=== PATIENT | female | born 1930 | race American Indian/Alaskan Native ===

== ENCOUNTER 2017-04-11 13:58 | Inpatient (IN) | payer MEDICARE, BC, OTHER ==
[~2017-04-11] VITALS: Ht 167.6 cm; Wt 70.0 kg
[2017-04-11 14:16] VITALS: BP 152/67; PULSE 65; RESP 18; TEMP 98.4; O2SAT 98
--- NOTE | 2017-04-11 14:24 | PD ---
HPI Chief Complaint: Psychiatric Symptoms Time Seen by Provider: 14:20 Travel History International Travel<30 days: No Contact w/Intl Traveler<30days: No Traveled to known affect area: No History of Present Illness HPI 86-year-old female with history of dementia, CHF, COPD, hyperthyroidism, presents to the emergency department under a Enriquez act for psychiatric evaluation. Per the report, patient has had suicidal ideations, she has been aggressive towards staff, she keeps getting out of her wheelchair, so they sent her to the emergency department under Enriquez act. Patient is a very pleasantly confused. She has no recollection of what I am talking about. She is unable to stay focused on any amount of conversation of trying to have with her. She is a poor historian. She says no when asked if she is in pain. She believes Kevin is the president and that it is 1916. PFSH Past Medical History Dementia: Yes GERD: Yes Thyroid Disease: Yes ?: Not Social History Alcohol Use: No Tobacco Use: No Substance Use: No Allergies-Medications (Allergen,Severity, Reaction): Coded Allergies: Penicillins (Verified Allergy, Unknown, 04/11/17) baclofen (Verified Allergy, Unknown, 04/11/17) quetiapine (Verified Allergy, Unknown, 04/11/17) Reported Meds & Prescriptions Reported Meds & Active Scripts Active Reported Tylenol (Acetaminophen) 325 Mg Tab 650 Mg PO Q4H PRN Ativan (Lorazepam) 0.5 Mg Tab 0.5 Mg PO Q8H PRN Thera-D 2000 (Cholecalciferol) 2,000 Unit Tab 2,000 Units PO DAILY Colace (Docusate Sodium) 100 Mg Capsule Q12HR Cranberry Urinary Comfort (Vitamins C & E) 1 Cap 1 Cap PO BID Fentanyl Patch 72 HR (Fentanyl) 12 Mcg/Hr Patch 1 Patch T-DERMAL Q72H Remove old patch when new one placed. Ferrous Sulfate 325 Mg (65 Mg Iron) Tablet 325 Mg PO DAILY Lasix (Furosemide) 20 Mg Tab 20 Mg PO BID Levothyroxine (Levothyroxine Sodium) 50 Mcg Tab 50 Mcg PO DAILY Liothyronine (Liothyronine Sodium) 25 Mcg Tab 25 Mcg PO DAILY Allergy Relief (Loratadine) 10 Mg Tab 10 Mg PO DAILY Systane Opth Drops (Polyethylene Glycol-Propylene Glycol Opth Drp) 0.4-0.3% Soln 1-2 Drop EACH EYE PRN PRN Ranitidine (Ranitidine HCl) 150 Mg Tab 150 Mg PO BID Potassium Chloride ER (Potassium Chloride) 20 Meq Tab 20 Meq PO DAILY Plavix (Clopidogrel Bisulfate) 75 Mg Tab 75 Mg PO DAILY Nystatin Topical (Nystatin) 100,000 unit/gm Cream 1 Applic TOPICAL TID Mclean (Hydrocodone-Acetaminophen) 5-325 mg Tab 1 Tab PO TID PRN Neurontin (Gabapentin) 100 Mg Cap 200 Mg PO BID Melatonin 5 Mg Tab 3 Mg PO HS Review of Systems Except as stated in HPI: all other systems reviewed are Neg Physical Exam Narrative GENERAL: Well-nourished, pleasant elderly female patient, was only confused, in no acute distress. SKIN: Focused skin assessment warm/dry. HEAD: Atraumatic. Normocephalic. EYES: Pupils equal and round. No scleral icterus. No injection or drainage. ENT: No nasal bleeding or discharge. Mucous membranes pink and moist. NECK: Trachea midline. No JVD. CARDIOVASCULAR: Regular rate and rhythm. Over 6 systolic murmur appreciated. RESPIRATORY: No accessory muscle use. Clear to auscultation. Breath sounds equal bilaterally. GASTROINTESTINAL: Abdomen soft, non-tender, nondistended. Hepatic and splenic margins not palpable. MUSCULOSKELETAL: No obvious deformities. No clubbing. No cyanosis. No edema. NEUROLOGICAL: Awake and alert. No obvious cranial nerve deficits. Motor grossly within normal limits. Normal speech. Data Data Last Documented VS Vital Signs Date Time Temp Pulse Resp B/P (MAP) Pulse Ox O2 Delivery O2 Flow Rate FiO2 04/11/17 19:20 63 16 142/61 (88) 96 Room Air 04/11/17 14:16 98.4 Orders Orders Urinalysis - C+S If Indicated (04/11/17 14:24) Haloperidol Inj (Haldol Inj) (04/11/17 15:00) Lorazepam (Ativan) (04/11/17 17:45) Diet Heart Healthy (04/11/17 Dinner) Labs Laboratory Tests Test 04/11/17 15:10 Urine Color YELLOW Urine Turbidity CLEAR Urine pH 5.0 Urine Specific [place] 1.011 Urine Protein NEG mg/dL Urine Glucose (UA) NEG mg/dL Urine Ketones NEG mg/dL Urine Occult Blood NEG Urine Nitrite NEG Urine Bilirubin NEG Urine Urobilinogen LESS THAN 2.0 MG/DL Urine Leukocyte Esterase NEG Urine RBC LESS THAN 1 /hpf Urine WBC LESS THAN 1 /hpf Urine Squamous Epithelial Cells <1 /hpf Urine Hyaline Casts 10 /lpf Microscopic Urinalysis Comment CULT NOT INDICATED MDM Medical Decision Making Medical Screen Exam Complete: Yes Emergency Medical Condition: Yes Medical Record Reviewed: Yes Differential Diagnosis Dementia versus mood disorder versus personality disorder Narrative Course 86-year-old female presents to emergency department under Enriquez act for psychiatric evaluation. The patient is very pleasantly confused. She is demonstrating no aggressive behavior here. She does not seem to know what I am asking when I confronted her about suicidal or homicidal ideations. Lab work was done today in the outpatient lab. Urinalysis will be added. Laboratory Tests Test 04/11/17 15:10 Urine Color YELLOW Urine Turbidity CLEAR Urine pH 5.0 Urine Specific [place] 1.011 Urine Protein NEG mg/dL Urine Glucose (UA) NEG mg/dL Urine Ketones NEG mg/dL Urine Occult Blood NEG Urine Nitrite NEG Urine Bilirubin NEG Urine Urobilinogen LESS THAN 2.0 MG/DL Urine Leukocyte Esterase NEG Urine RBC LESS THAN 1 /hpf Urine WBC LESS THAN 1 /hpf Urine Squamous Epithelial Cells <1 /hpf Urine Hyaline Casts 10 /lpf Microscopic Urinalysis Comment CULT NOT INDICATED Patient is medically cleared to undergo psychiatric screening for further evaluation and disposition. Patient is becoming restless, she will be given milligrams Haldol IM. If needed we will give her 1 mg Ativan by mouth. Mental health screening discussed with the patient. Psychiatric screen ordered. Diagnosis Primary Impression: Dementia Qualified Codes: F03.90 - Unspecified dementia without behavioral disturbance Condition: Stable IrmaAyanna MEDINA Apr 11, 2017 14:24
[2017-04-11] MEDS ORDERED: HALOPERIDOL LACTATE 5 MG/ML AMP IM ONE (15:00)
[2017-04-11 15:32] LABS: BLOOD, URINE NEG (NEG); COMMENT (UR) CULT NOT INDICATED; CULTURE IF INDICATED CULT NOT INDICATED; GLUCOSE,URINE NEG (NEG); HYALINE CAST, URINE 10 /lpf (RARE); KETONE, URINE NEG (NEG); NITRITE,URINE NEG (NEG); SQUAMOUS EPITHELIAL CELL URINE <1 /hpf (0-5); URINE COLOR YELLOW (YELLW/STRAW)
[2017-04-11] MEDS ORDERED: LORazepam 1 MG TAB PO ONE (17:45)
[2017-04-11] MEDS ORDERED: MELA5TAB15 PO (18:28)
[2017-04-11] MEDS ORDERED: NORC5TAB PO (18:28)
[2017-04-11] MEDS ORDERED: NEUR100C PO (18:28)
[2017-04-11] MEDS ORDERED: NYST15T TOPICAL (18:28)
[2017-04-11] MEDS ORDERED: TYLE325T PO (18:38)
[2017-04-11] MEDS ORDERED: PLAV75TA29 PO (18:38)
[2017-04-11] MEDS ORDERED: POTA-163 PO (18:38)
[2017-04-11] MEDS ORDERED: FURO1TAB62 PO (18:38)
[2017-04-11] MEDS ORDERED: LIOT25TA3 PO (18:38)
[2017-04-11] MEDS ORDERED: CRANCAP2 PO (18:38)
[2017-04-11] MEDS ORDERED: FENT12DI T-DERMAL (18:38)
[2017-04-11] MEDS ORDERED: COLA100C (18:38)
[2017-04-11] MEDS ORDERED: LEVO50TA4 PO (18:38)
[2017-04-11] MEDS ORDERED: FERR325T8 PO (18:38)
[2017-04-11] MEDS ORDERED: LORA-392 PO (18:38)
[2017-04-11] MEDS ORDERED: RANI150T PO (18:38)
[2017-04-11] MEDS ORDERED: SYSTSOL EACH EYE (18:38)
[2017-04-11] MEDS ORDERED: ALLE10TA PO (18:38)
[2017-04-11] MEDS ORDERED: THER2000 PO (18:38)
[2017-04-11 19:20] VITALS: BP_SYST 132; BP_SYST 140; BP_SYST 142; BP_DIAS 60; BP_DIAS 61; PULSE 63; RESP 16; O2SAT 96
[2017-04-11 22:58] VITALS: BP_SYST 132; BP_SYST 141; BP_DIAS 58; BP_DIAS 60; PULSE 71; PULSE 85; RESP 16; O2SAT 98
[2017-04-11 23:00] VITALS: BP 166/75; PULSE 63; RESP 18; TEMP 97.4; O2SAT 97
[2017-04-12 05:55] VITALS: BP 159/71; PULSE 67; RESP 17; TEMP 98.2
[2017-04-12] MEDS ORDERED: ACETAMINOPHEN 325 MG TAB PO PRN (09:30)
[2017-04-12] MEDS ORDERED: NON-FORMULARY DRUG (Fentanyl Patch 72 HR 1 PATCH) T-DERMAL SCH (09:45)
[2017-04-12] MEDS ORDERED: ACETAMINOPHEN/HYDROcodone 325 MG/5 MG TAB PO PRN (10:00)
--- NOTE | 2017-04-12 10:40 | HHI.HP ---
Provisional Diagnosis Admission Date Apr 11, 2017 at 22:19 [place] I. 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 Express and informed consent means consent voluntarily given in writing, by a competent person, after sufficient explanation and disclosure of the subject matter involved to enable the person to make a knowing and willful decision without any element of force, fraud, deceit, duress, or other form of constraint or coercion. This person is 18 years of age or older, is not now known to be incompetent to consent to treatment with a guardian advocate, and does not have a health care surrogate or proxy currently making medical treatment decisions. I have found this person to be one of the following: [] Competent to provide express and informed consent, as defined above, for voluntary admission to this facility and is competent to provide express and informed consent for treatment. He/she has the consistent capacity to make well reasoned, willful, and knowing decisions concerning his or her medical or mental health treatment. The person fully and consistently understands the purpose of the admission for examination/placement and is fully capable of personally exercising all rights assured under [place] Incompetent to provide express and informed consent to voluntary admission , and this is incompetent to provide express and informed consent to treatment. The person must be transferred to involuntary status and a petition for a guardian advocate filed with the Circuit Court. [] Refusing to provide express and informed consent to voluntary admission but is competent to provide express and informed consent for treatment. The person must be discharged or transferred to involuntary status. Form shall be completed within 24 hours of a person's arrival at the receiving facility and filed in the clinical record of each person: 1. Admitted on a voluntary basis 2. Permitted to provide express and informed consent to his/her own treatment 3. Allowed to transfer from involuntary to voluntary status 4. Prior to permitting a person to consent to his or her own treatment after having been previously found incompetent to consent to treatment. History of Present Illness Capacity: Lacks Capacity HPI Patient is an 86-year-old white female comes here under Enriquez act signed by Carolann Perez LCSW dated 04/11/17 11:15 AM that document reviewed. Essentially stated he suicidal intentions delusional thoughts content strikingly staff/ family members refuses to remain in wheelchair resulting in potential falls. Patient seen screened in ED it appears the only lab test done with urinalysis that showed culture not indicated. Patient with history of dementia was living at [facility] for past 3 years is had stresses with thought that the roommate. And changes in her medication recently with the discontinuation of Cymbalta and manipulation of her fentanyl patch. This is led to increased behavioral issues including being more aggressive and hostile towards her daughter who is her caregiver and decision-maker. Thus patient being transferred here. At the present time patient sitting quietly in day room she is calm quite pleasant, eating pleasantly confused all 4 spheres. There is no other significant mental health history. Lids of the patient's daughter whose name is Pat at verifies the above. Daughter states patient is a DNR she does not wish aggressive treatment to be done. She is on palliative care at the alf. I do agree with her. She'll be made a DNR here. We will the hospitalist consult will us. We'll continue her on her Cymbalta at 20 mg daily however the fentanyl patch ordered was 12.5 mg. Hospital only has 25 mg. Chest with a daughter. Many event hopefully this will be a short stay with concerned the patient to [facility] Review of Systems ROS Limitations: Clinical Condition, Altered Mental Status Past Psych History Psychological trauma history Denies Violence risk - others (6 mos) Patient increasingly aggressive toward staff and family at alf Violence risk - self (6 mos) Patient make vague suicidal statement Substance Abuse History Drugs/Alcohol past 12 months Denies Past Family Social History Coded Allergies: Penicillins (Verified Allergy, Unknown, 04/11/17) baclofen (Verified Allergy, Unknown, 04/11/17) quetiapine (Verified Allergy, Unknown, 04/11/17) Reported Medications Acetaminophen (Tylenol) 325 Mg Tab, 650 MG PO Q4H Y for INCREASED TEMPERATURE, TAB 0 Refills 04/11/17 Lorazepam (Ativan) 0.5 Mg Tab, 0.5 MG PO Q8H Y for ANXIETY AND/OR AGITATION, TAB 0 Refills 04/11/17 Cholecalciferol (Thera-D 1999) 2,000 Unit Tab, 2000 UNITS PO DAILY for Nutritional Supplement, BOTTLE 0 Refills 04/11/17 Docusate Sodium (Colace) 100 Mg Capsule, Q12HR 04/11/17 Vitamins C & E (Cranberry Urinary Comfort) 1 Cap, 1 CAP PO BID for Urinary Symptom Managemen, CAP 0 Refills 04/11/17 Fentanyl Patch 72 HR (Fentanyl Patch 72 HR) 12 Mcg/Hr Patch, 1 PATCH T-DERMAL Q72H for Pain Management, PATCH 0 Refills Remove old patch when new one placed. 04/11/17 Ferrous Sulfate (Ferrous Sulfate) 325 Mg (65 Mg Iron) Tablet, 325 MG PO DAILY for Nutritional Supplement, TAB 0 Refills 04/11/17 Furosemide (Lasix) 20 Mg Tab, 20 MG PO BID, TAB 0 Refills 04/11/17 Levothyroxine (Levothyroxine) 50 Mcg Tab, 50 MCG PO DAILY for Thyroid, TAB 0 Refills 04/11/17 Liothyronine (Liothyronine) 25 Mcg Tab, 25 MCG PO DAILY for Thyroid Supplement, TAB 0 Refills 04/11/17 Loratadine (Allergy Relief) 10 Mg Tab, 10 MG PO DAILY, TAB 04/11/17 Polyethylene Glycol-Propylene Glycol Opth Drp (Systane Opth Drops) 0.4-0.3% Soln , 1-2 DROP EACH EYE PRN Y for DRY EYE, #1 BOTTLE 0 Refills 04/11/17 Ranitidine (Ranitidine) 150 Mg Tab, 150 MG PO BID for Heartburn Management, TAB 0 Refills 04/11/17 Potassium Chloride ER (Potassium Chloride ER) 20 Meq Tab, 20 MEQ PO DAILY for Electrolyte Replacement, TAB 0 Refills 04/11/17 Clopidogrel (Plavix) 75 Mg Tab, 75 MG PO DAILY for Blood Clot Prevention, TAB 0 Refills 04/11/17 Nystatin Topical (Nystatin Topical) 100,000 unit/gm Cream, 1 APPLIC TOPICAL TID , 0 Refills 04/11/17 Hydrocodone-Acetaminophen (Barron) 5-325 mg Tab, 1 TAB PO TID Y for PAIN, TAB 0 Refills 04/11/17 Gabapentin (Neurontin) 100 Mg Cap, 200 MG PO BID, CAP 0 Refills 04/11/17 Melatonin (Melatonin) 5 Mg Tab, 3 MG PO HS for Provide Good Sleep, TAB 0 Refills 04/11/17 Current Medications Medications (Trade) Dose Ordered Sig/Keli Route Start Time Stop Time Status Last Admin (Tylenol) 650 mg Q4H PRN PO 04/12/17 09:30 UNV (Vitamin D3) 2,000 units DAILY PO 04/13/17 09:00 (Plavix) 75 mg DAILY PO 04/12/17 11:00 (Ferrous Sulfate) 325 mg DAILY PO 04/13/17 09:00 (Lasix) 20 mg BID PO 04/12/17 21:00 (Neurontin) 200 mg BID PO 04/12/17 21:00 (Barron 5-325 Mg) 1 tab TID PRN PO 04/12/17 09:30 UNV (Synthroid) 50 mcg DAILY@0600 PO 04/13/17 06:00 (Cytomel) 25 mcg DAILY PO 04/13/17 09:00 (Melatonin) 3 mg HS PO 04/12/17 21:00 UNV (KCl) 20 meq DAILY PO 04/13/17 09:00 (Pepcid) 20 mg BID PO 04/12/17 12:00 Non-Formulary Medication 1 patch Q72H T-DERMAL 04/12/17 09:45 UNV (Cymbalta Dr) 20 mg DAILY PO 04/12/17 11:00 Family Psych History Denies Social History Patient has lived in alf past 3 years Patient's Strengths (min. 2) Patient verbal cooperative has supportive family Physical Exam Vital Signs Vital Signs Date Time Temp Pulse Resp B/P (MAP) Pulse Ox O2 Delivery O2 Flow Rate FiO2 04/12/17 05:55 98.2 67 17 159/71 (100) 04/11/17 23:00 97 04/11/17 22:58 Room Air I/O 04/12/17 04/12/17 04/13/17 08:00 16:00 00:00 Intake Total 480 ml Balance 480 ml Lab Results Test 04/11/17 15:10 Urine Color YELLOW Urine Turbidity CLEAR Urine pH 5.0 Urine Specific [place] 1.011 Urine Protein NEG mg/dL Urine Glucose (UA) NEG mg/dL Urine Ketones NEG mg/dL Urine Occult Blood NEG Urine Nitrite NEG Urine Bilirubin NEG Urine Urobilinogen LESS THAN 2.0 MG/DL Urine Leukocyte Esterase NEG Urine RBC LESS THAN 1 /hpf Urine WBC LESS THAN 1 /hpf Urine Squamous Epithelial Cells <1 /hpf Urine Hyaline Casts 10 /lpf Microscopic Urinalysis Comment CULT NOT INDICATED Mental Status Examination Appearance: Appropriate Consciousness: Alert Orientation: Person Motor Activity: Other (patient wheelchair-bound) Speech: Other (markedly disorganized) Language: Other (poor) Fund of Knowledge: Poor (poor) Attention and Concentration: Other (poor) Memory: Impaired Mood: Other (euthymic to somewhat irritable) Affect: Other (slight increase range and intensity) Thought Process & Associations: Disorganized Thought Content: Other (disorganized) Hallucination Type: None Delusion Type: None Suicidal Ideation: No Suicidal Plan: No Suicidal Intention: No Homicidal Ideation: No Homicidal Plan: No Homicidal Intention: No Insight: Poor Judgment: Poor Assessment & Plan Problem List: (1) ALZHEIMER'S DISEASE WITH LATE ONSET ICD Codes: G30.1 - ALZHEIMER'S DISEASE WITH LATE ONSET (2) DEMENTIA IN OTH DISEASES CLASSD ELSWHR W BEHAVIORAL DISTURB ICD Codes: F02.81 - DEMENTIA IN OTH DISEASES CLASSD ELSWHR W BEHAVIORAL DISTURB Assessment & Plan Patient meets criteria for involuntary hospitalization under the Enriquez act I'll do first opinion requests second opinion, ask for healthcare surrogate and guardian advocate. Patient's daughter has decision-making authority. The hospitalist consult Pandey and dietary consult willingness monitor patient copiously short stay with return of her culture and [place] Estimated LOS: days Discharge Planning Return to [facility] once patient stabilized Request HC Surrog/Guard Advoc?: Yes Carlos Hu MD Apr 12, 2017 10:40
[2017-04-12] MEDS: CLOPIDOGREL 75 MG TAB PO SCH ×2 (11:00→12:35)
[2017-04-12] MEDS: DULoxetine HCl DR 20 MG CAP PO SCH ×2 (11:00→12:38)
[2017-04-12] MEDS: FAMOTIDINE 20 MG TAB PO SCH ×2 (12:35→20:33)
[2017-04-12] MEDS ORDERED: REMOVE OLD DURAGESIC (FENTANYL) PATCH T-DERMAL SCH (13:00)
[2017-04-12] MEDS ORDERED: fentaNYL 25 MCG/HR PATCH T-DERMAL SCH (13:00)
[2017-04-12] MEDS ORDERED: HALOPERIDOL LACTATE 5 MG/ML AMP IM STA (13:18)
[2017-04-12] MEDS ORDERED: LORazepam 0.5 MG TAB PO PRN (15:45)
[2017-04-12] MEDS ORDERED: LORazepam 2 MG/ML VIAL IM PRN (15:45)
--- NOTE | 2017-04-12 17:54 | PD.CONS ---
HPI Service [facility] Hospitalists Consult Requested By Niko Malagon M.D. Reason for Consult Medication management. Primary Care Physician Anatoliy Roper DO Diagnoses: History of Present Illness Written by Pelon Slaughter, acting as scribe for Dr. Sonia Baxter on 04/12/17 at 17: 40. Ms. Mina is 86 years old, with history of dementia, CHF, COPD, hypothyroidism, GERD, iron deficiency, vitamin D deficiency, and chronic pain. Ms. Mina bed resident of a correction for the past 3 years. Recently she has become combative and was brought to [facility] ED for psychiatric evaluation under the Enriquez act. She was subsequently admitted to psychiatry. Hospitalist service consulted for medical management. At interview, was pleasantly confused and could not provide significant history about herself or her medical past. As such a review of systems could not be obtained. Review of Systems ROS Limitations: Clinical Condition, Poor Historian Unable to obtain accurate review of system. Past Family Social History Allergies: Coded Allergies: Penicillins (Verified Allergy, Unknown, 04/11/17) baclofen (Verified Allergy, Unknown, 04/11/17) quetiapine (Verified Allergy, Unknown, 04/11/17) Past Medical History Dementia CHF COPD Hypothyroidism GERD Iron deficiency Vitamin D deficiency Chronic pain Past Surgical History Unknown due to patient being poor historian. Reported Medications Reported Meds & Active Scripts Active Reported Tylenol (Acetaminophen) 325 Mg Tab 650 Mg PO Q4H PRN Ativan (Lorazepam) 0.5 Mg Tab 0.5 Mg PO Q8H PRN Thera-D 2000 (Cholecalciferol) 2,000 Unit Tab 2,000 Units PO DAILY Colace (Docusate Sodium) 100 Mg Capsule Q12HR Cranberry Urinary Comfort (Vitamins C & E) 1 Cap 1 Cap PO BID Fentanyl Patch 72 HR (Fentanyl) 12 Mcg/Hr Patch 1 Patch T-DERMAL Q72H Remove old patch when new one placed. Ferrous Sulfate 325 Mg (65 Mg Iron) Tablet 325 Mg PO DAILY Lasix (Furosemide) 20 Mg Tab 20 Mg PO BID Levothyroxine (Levothyroxine Sodium) 50 Mcg Tab 50 Mcg PO DAILY Liothyronine (Liothyronine Sodium) 25 Mcg Tab 25 Mcg PO DAILY Allergy Relief (Loratadine) 10 Mg Tab 10 Mg PO DAILY Systane Opth Drops (Polyethylene Glycol-Propylene Glycol Opth Drp) 0.4-0.3% Soln 1-2 Drop EACH EYE PRN PRN Ranitidine (Ranitidine HCl) 150 Mg Tab 150 Mg PO BID Potassium Chloride ER (Potassium Chloride) 20 Meq Tab 20 Meq PO DAILY Plavix (Clopidogrel Bisulfate) 75 Mg Tab 75 Mg PO DAILY Nystatin Topical (Nystatin) 100,000 unit/gm Cream 1 Applic TOPICAL TID Stovall (Hydrocodone-Acetaminophen) 5-325 mg Tab 1 Tab PO TID PRN Neurontin (Gabapentin) 100 Mg Cap 200 Mg PO BID Melatonin 5 Mg Tab 3 Mg PO HS Active Ordered Medications Current Medications Medications (Trade) Dose Ordered Sig/Keli Route Start Time Stop Time Status Last Admin (Tylenol) 650 mg Q4H PRN PO 04/12/17 09:30 (Vitamin D3) 2,000 units DAILY PO 04/13/17 09:00 (Plavix) 75 mg DAILY PO 04/12/17 11:00 (Ferrous Sulfate) 325 mg DAILY PO 04/13/17 09:00 (Lasix) 20 mg BID PO 04/12/17 21:00 (Neurontin) 200 mg BID PO 04/12/17 21:00 (Stovall 5-325 Mg) 1 tab TID PRN PO 04/12/17 10:00 (Synthroid) 50 mcg DAILY@0600 PO 04/13/17 06:00 (Cytomel) 25 mcg DAILY PO 04/13/17 09:00 (Melatonin) 5 mg HS PO 04/12/17 21:00 (KCl) 20 meq DAILY PO 04/13/17 09:00 (Pepcid) 20 mg BID PO 04/12/17 12:00 04/12/17 12:35 (Cymbalta Dr) 20 mg DAILY PO 04/12/17 11:00 (Duragesic 25 Mcg Patch.72 Hr) 1 patch Q3D T-DERMAL 04/12/17 13:00 04/12/17 16:45 Miscellaneous Information 1 Q3D T-DERMAL 04/12/17 13:00 04/12/17 16:45 (Ativan) 0.5 mg Q12H PRN PO 04/12/17 15:45 (Ativan Inj) 0.5 mg Q12H PRN IM 04/12/17 15:45 Family History Unable to determine because of patient's mental status. Social History Patient is and has lived in a correction for the last 3 years. Medical record indicates patient has negative history for alcohol abuse, tobacco usage, or illicit/recreational drug use. Physical Exam Vital Signs Vital Signs Date Time Temp Pulse Resp B/P (MAP) Pulse Ox O2 Delivery O2 Flow Rate FiO2 04/12/17 05:55 98.2 67 17 159/71 (100) 04/11/17 23:00 97.4 63 18 166/75 (105) 97 04/11/17 22:58 71 16 132/58 (82) 98 Room Air 04/11/17 22:58 04/11/17 19:20 63 16 140/60 (86) 96 Room Air Physical Exam GENERAL: This is a well-nourished, well-developed patient, in no apparent distress. SKIN: No rashes, ecchymoses or lesions. Cool and dry. HEAD: Atraumatic. Normocephalic. EYES: Pupils equal round and reactive. Extraocular motions intact. No scleral icterus. No injection or drainage. ENT: Nose without bleeding or purulent drainage. Airway patent. NECK: Trachea midline. No lymphadenopathy. Supple and nontender. CARDIOVASCULAR: Regular rate and rhythm without murmurs, gallops, or rubs. RESPIRATORY: Clear to auscultation. Breath sounds equal bilaterally. No wheezes , rales, or rhonchi. GASTROINTESTINAL: Abdomen soft, non-tender, nondistended. No hepato- splenomegaly or guarding. MUSCULOSKELETAL: Extremities without clubbing, cyanosis, or edema. Bilaterally thigh regions were large yet lower extremities were very skinny. NEUROLOGICAL: Awake and alert. Cranial nerves II through XII intact. Motor and sensory grossly within normal limits. Five out of 5 muscle strength in all muscle groups. Normal speech. Assessment and Plan Assessment and Plan Ms. Mina is 86 years old, with history of dementia, CHF, COPD, hypothyroidism, GERD, iron deficiency, vitamin D deficiency, and chronic pain. Dementia with disturbance of behavior. -Treatment per psychiatry. CHF/Probable CAD -Furosemide 20 mg twice a day by mouth -Potassium chloride 20 mEq by mouth daily. -Plavix 75 mg by mouth daily. COPD -Stable Hypothyroidism -Liothyronine 25 micrograms by mouth daily -Levothyroxine 50 micrograms daily at 6 AM by mouth GERD Vitamin D deficiency Iron deficiency -Pepcid 20 mg twice a day by mouth -Vitamin D3 2000 units by mouth daily -Ferrous sulfate 325 mg by mouth daily Chronic pain -Duragesic 25 microgram patch every 3 days transdermal -Stovall 5-325 mg 1 tablet 3 times a day as needed by mouth for pain This note was transcribed by scribe [Pelon Slaughter]. I, Dr. Vlad Baxter personally performed the history, physical exam, and medical decision making; and confirmed the accuracy of the information in the transcribed note. Authenticated by Dr. Vlad Baxter on 04/12/17 at 1745 I reviewed the available medical record, including her labs and vital signs in details. She is medically stable. Will sign off. Please call or reconsult with questions. Code Status DO NOT RESUSCITATE Discussed Condition With Patient and psychiatric staff Pelon Slaughter Jr. Apr 12, 2017 17:54 Vlad Baxter MD Apr 12, 2017 19:08
[2017-04-12] MEDS: MELATONIN 5 MG TAB PO SCH (20:32)
[2017-04-12] MEDS: GABAPENTIN 100 MG CAP PO SCH (20:33)
[2017-04-12] MEDS: FUROSEMIDE 20 MG TAB PO SCH (20:33)
[2017-04-12] MEDS ORDERED: NON-FORMULARY DRUG (Vitamins C & E (Cranberry Urinary Comfort) 1 CAP) PO SCH (21:00)
[2017-04-13 06:00] VITALS: BP 132/67; PULSE 69; RESP 15; O2SAT 96
[2017-04-13] MEDS: LEVOTHYROXINE SODIUM 50 MCG TAB PO SCH (06:00)
[2017-04-13] MEDS: CHOLECALCIFEROL (VIT D3) 1000 UNIT TAB PO SCH (10:23)
[2017-04-13] MEDS: LIOTHYRONINE SODIUM 25 MCG TAB PO SCH (10:24)
[2017-04-13] MEDS: CLOPIDOGREL 75 MG TAB PO SCH (10:24)
[2017-04-13] MEDS: DULoxetine HCl DR 20 MG CAP PO SCH (10:24)
[2017-04-13] MEDS: GABAPENTIN 100 MG CAP PO SCH ×2 (10:24→20:03)
[2017-04-13] MEDS: FUROSEMIDE 20 MG TAB PO SCH ×2 (10:24→20:02)
[2017-04-13] MEDS: FERROUS SULFATE 325 MG (65 MG ELEMENTAL IRON) TAB PO SCH (10:24)
[2017-04-13] MEDS: FAMOTIDINE 20 MG TAB PO SCH ×2 (10:24→20:03)
[2017-04-13] MEDS: POTASSIUM CHLORIDE 20 MEQ CONTROLLED RELEASE TAB PO SCH (10:25)
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
--- NOTE | 2017-04-13 14:16 | HHI.PR ---
Subjective Remarks Request to see pt for yeast infection under breasts. Pt seen and examined. She reported having discomfort along her left flank. She denied fever, chills, cough, shortness of breath, abdominal/chest pain, NVD. Per RN (Jes) Hospitalist team was requested to see pt as family was concerned yeast infection was not improving. Vitals signs stable, pt afebrile. Objective Vitals Vital Signs Date Time Temp Pulse Resp B/P (MAP) Pulse Ox O2 Delivery O2 Flow Rate FiO2 04/13/17 06:00 69 15 132/67 (88) 96 04/12/17 18:13 14 I/O 04/12/17 04/12/17 04/12/17 04/13/17 04/13/17 04/13/17 06:59 14:59 22:59 06:59 14:59 22:59 Intake Total 1440 ml 480 ml 460 ml Balance 1440 ml 480 ml 460 ml Intake Oral 1440 ml 480 ml 460 ml # Voids 2 1 1 Objective Remarks GENERAL: Pt encountered in day room and wheeled into her room by RN. Pt was requesting to return to bed during examination. SKIN: Warm and dry. White, flaky material lateral to both breasts. Skin was unbroken, not erythematous. No drainage noted. HEAD: Normocephalic. EYES: No scleral icterus. No injection or drainage. NECK: Supple, trachea midline. No lymphadenopathy. CARDIOVASCULAR: Regular rate and rhythm without murmurs, gallops, or rubs. RESPIRATORY: Breath sounds equal bilaterally. No accessory muscle use. GASTROINTESTINAL: Abdomen soft, non-tender, nondistended. MUSCULOSKELETAL: No cyanosis, or edema. PSYCHIATRIC: Pleasantly confused, became agitated when she could not return to bed. Medications and IVs Current Medications Medications (Trade) Dose Ordered Sig/Keli Route Start Time Stop Time Status Last Admin (Tylenol) 650 mg Q4H PRN PO 04/12/17 09:30 (Vitamin D3) 2,000 units DAILY PO 04/13/17 09:00 04/13/17 10:23 (Plavix) 75 mg DAILY PO 04/12/17 11:00 04/13/17 10:24 (Ferrous Sulfate) 325 mg DAILY PO 04/13/17 09:00 04/13/17 10:24 (Lasix) 20 mg BID PO 04/12/17 21:00 04/13/17 10:24 (Neurontin) 200 mg BID PO 04/12/17 21:00 04/13/17 10:24 ([place] 5-325 Mg) 1 tab TID PRN PO 04/12/17 10:00 (Synthroid) 50 mcg DAILY@0600 PO 04/13/17 06:00 04/13/17 06:00 (Cytomel) 25 mcg DAILY PO 04/13/17 09:00 04/13/17 10:24 (Melatonin) 5 mg HS PO 04/12/17 21:00 04/12/17 20:32 (KCl) 20 meq DAILY PO 04/13/17 09:00 04/13/17 10:25 (Pepcid) 20 mg BID PO 04/12/17 12:00 04/13/17 10:24 (Cymbalta Dr) 20 mg DAILY PO 04/12/17 11:00 04/13/17 10:24 (Duragesic 25 Mcg Patch.72 Hr) 1 patch Q3D T-DERMAL 04/12/17 13:00 04/12/17 16:45 Miscellaneous Information 1 Q3D T-DERMAL 04/12/17 13:00 04/12/17 16:45 (Ativan) 0.5 mg Q12H PRN PO 04/12/17 15:45 (Ativan Inj) 0.5 mg Q12H PRN IM 04/12/17 15:45 Urinary Catheter: No A/P Assessment and Plan Ms. Mina is 86 years old, with history of dementia, CHF, COPD, hypothyroidism, GERD, iron deficiency, vitamin D deficiency, and chronic pain. Candidiasis -Clotrimazole cream applied to affected area twice daily -Keep skin jesus as much as possible. -Add nystatin powder twice daily after the Clotrimazole cream. -Pt afebrile, Dementia with disturbance of behavior. -Treatment per psychiatry. CHF/Probable CAD -Furosemide 20 mg twice a day by mouth -Potassium chloride 20 mEq by mouth daily. -Plavix 75 mg by mouth daily. COPD -Stable Hypothyroidism -Liothyronine 25 micrograms by mouth daily -Levothyroxine 50 micrograms daily at 6 AM by mouth GERD Vitamin D deficiency Iron deficiency -Pepcid 20 mg twice a day by mouth -Vitamin D3 2000 units by mouth daily -Ferrous sulfate 325 mg by mouth daily Chronic pain -Duragesic 25 microgram patch every 3 days transdermal -[place] 5-325 mg 1 tablet 3 times a day as needed by mouth for pain Case discussed with pt, RN, and Dr. Cuello. Will sign off as pt is medically stable. Please re-consult for any further questions or issues. Discharge Planning Ongoing. Pelon Slaughter Jr. Apr 13, 2017 14:16
[2017-04-13 18:36] VITALS: BP 153/75; PULSE 98; RESP 18; TEMP 98.1; O2SAT 94
[2017-04-13] MEDS: CLOTRIMAZOLE 1% CREAM 15 GM TOPICAL SCH ×2 (18:41→20:03)
[2017-04-13] MEDS: NYSTATIN 100,000 U/GM PWD 15 GM BTL TOPICAL SCH ×2 (18:41→20:05)
[2017-04-13] MEDS: MELATONIN 5 MG TAB PO SCH (20:03)
[2017-04-14 06:20] VITALS: BP 141/69; PULSE 88; RESP 18; TEMP 96.8; O2SAT 98
[2017-04-14] MEDS: LEVOTHYROXINE SODIUM 50 MCG TAB PO SCH (06:31)
[2017-04-14] MEDS: CLOPIDOGREL 75 MG TAB PO SCH (10:22)
[2017-04-14] MEDS: DULoxetine HCl DR 20 MG CAP PO SCH (10:22)
[2017-04-14] MEDS: GABAPENTIN 100 MG CAP PO SCH ×2 (10:22→21:37)
[2017-04-14] MEDS: POTASSIUM CHLORIDE 20 MEQ CONTROLLED RELEASE TAB PO SCH (10:23)
[2017-04-14] MEDS: CHOLECALCIFEROL (VIT D3) 1000 UNIT TAB PO SCH (10:23)
[2017-04-14] MEDS: FERROUS SULFATE 325 MG (65 MG ELEMENTAL IRON) TAB PO SCH (10:23)
[2017-04-14] MEDS: FAMOTIDINE 20 MG TAB PO SCH ×2 (10:23→21:37)
[2017-04-14] MEDS: LIOTHYRONINE SODIUM 25 MCG TAB PO SCH (10:23)
[2017-04-14] MEDS: FUROSEMIDE 20 MG TAB PO SCH ×2 (10:24→21:38)
[2017-04-14] MEDS: CLOTRIMAZOLE 1% CREAM 15 GM TOPICAL SCH ×2 (10:25→21:40)
[2017-04-14] MEDS: NYSTATIN 100,000 U/GM PWD 15 GM BTL TOPICAL SCH ×2 (10:25→21:40)
--- NOTE | 2017-04-14 11:59 | HHI.PYPN ---
Subjective Remarks Pt seen and discussed with staff. Pt has been calm today. No agitation or aggression so far today. She has been compliant with medications and care today. She slept 5 hours last night which was an improvement. She states that she is "enjoying the summer". No SI/HI Mental Status Examination Appearance: Appropriate Consciousness: Alert Orientation: Person Motor Activity: Abnormal gait Speech: Rapid, Other (loud) Language: Other (poor) Fund of Knowledge: Poor Attention and Concentration: Easily Distracted Memory: Impaired (severe) Mood: Irritable Affect: Labile Thought Process & Associations: Disorganized Thought Content: Other (disorganized) Hallucination Type: None Delusion Type: None Suicidal Ideation: No Suicidal Plan: No Suicidal Intention: No Homicidal Ideation: No Homicidal Plan: No Homicidal Intention: No Insight: Poor Judgment: Poor Results Vitals/IOs Vital Signs Date Time Temp Pulse Resp B/P (MAP) Pulse Ox O2 Delivery O2 Flow Rate FiO2 04/14/17 06:20 96.8 88 18 141/69 (93) 98 04/11/17 22:58 Room Air Intake and Output 04/14/17 04/14/17 04/14/17 07:59 15:59 23:59 Intake Total 240 ml Balance 240 ml Assessment & Plan Problem List: (1) ALZHEIMER'S DISEASE WITH LATE ONSET ICD Codes: G30.1 - ALZHEIMER'S DISEASE WITH LATE ONSET (2) DEMENTIA IN OTH DISEASES CLASSD ELSWHR W BEHAVIORAL DISTURB ICD Codes: F02.81 - DEMENTIA IN OTH DISEASES CLASSD ELSWHR W BEHAVIORAL DISTURB Assessment & Plan Continue current tx plan. Estimated LOS: days Justification for Cont. Inpt. impairments in safety Request HC Surrog/Guard Advoc?: Yes Adelia Rodriguez MD Apr 14, 2017 11:59
[2017-04-14 17:56] VITALS: BP 125/60; PULSE 60; RESP 17; TEMP 97.9; O2SAT 97
[2017-04-14 18:00] VITALS: BP 125/60; PULSE 60; RESP 17; TEMP 97.1; O2SAT 97
[2017-04-14] MEDS: MELATONIN 5 MG TAB PO SCH (21:37)
[2017-04-15] MEDS: LEVOTHYROXINE SODIUM 50 MCG TAB PO SCH (05:30)
[2017-04-15 06:15] VITALS: BP 141/71; PULSE 62; RESP 16; TEMP 97.3; O2SAT 97
[2017-04-15] MEDS: FERROUS SULFATE 325 MG (65 MG ELEMENTAL IRON) TAB PO SCH (08:34)
[2017-04-15] MEDS: LIOTHYRONINE SODIUM 25 MCG TAB PO SCH (08:34)
[2017-04-15] MEDS: CLOPIDOGREL 75 MG TAB PO SCH (08:34)
[2017-04-15] MEDS: FAMOTIDINE 20 MG TAB PO SCH (08:34)
[2017-04-15] MEDS: CHOLECALCIFEROL (VIT D3) 1000 UNIT TAB PO SCH (08:34)
[2017-04-15] MEDS: FUROSEMIDE 20 MG TAB PO SCH (08:34)
[2017-04-15] MEDS: POTASSIUM CHLORIDE 20 MEQ CONTROLLED RELEASE TAB PO SCH (08:35)
[2017-04-15] MEDS: GABAPENTIN 100 MG CAP PO SCH (08:35)
[2017-04-15] MEDS: NYSTATIN 100,000 U/GM PWD 15 GM BTL TOPICAL SCH (08:35)
[2017-04-15] MEDS: CLOTRIMAZOLE 1% CREAM 15 GM TOPICAL SCH (08:35)
[2017-04-15] MEDS ORDERED: FURO20TA PO (09:49)
[2017-04-15] MEDS ORDERED: FAMO20TA2 PO (09:49)
[2017-04-15] MEDS ORDERED: GNP5TAB6 PO (09:49)
[2017-04-15] MEDS ORDERED: FERR325T20 PO (09:49)
[2017-04-15] MEDS ORDERED: GABA100C4 PO (09:49)
[2017-04-15] MEDS ORDERED: FENT25T T-DERMAL (09:49)
[2017-04-15] MEDS ORDERED: CYTO25TA PO (09:49)
[2017-04-15] MEDS ORDERED: POTA20TA5 PO (09:49)
[2017-04-15] MEDS ORDERED: NYST10007 TOPICAL (09:49)
[2017-04-15] MEDS ORDERED: CLOT1CRE8 TOPICAL (09:49)
[2017-04-15] MEDS ORDERED: VITA1000 PO (09:49)
[2017-04-15] MEDS ORDERED: PLAV75TA29 PO (09:49)
[2017-04-15] MEDS ORDERED: DULO20 PO (09:49)
[2017-04-15] MEDS ORDERED: LEVO.05 PO (09:49)
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
== END 2017-04-15 12:00 | DRG 57 ==
LOC: NEPD 13:58 → NEDA 22:19 → H250 22:57
PROVIDERS: ADMIT Psychiatry & Neurology Psychiatry; ATTEND Psychiatry & Neurology Psychiatry
DX: G30.1 Alzheimer's disease with late onset (principal); F02.81 Dementia in other diseases classified elsewhere, unspecified severity, with behavioral disturbance; I50.9 Heart failure, unspecified; B37.2 Candidiasis of skin and nail; I25.10 Atherosclerotic heart disease of native coronary artery without angina pectoris; E55.9 Vitamin D deficiency, unspecified; J44.9 Chronic obstructive pulmonary disease, unspecified; Z66 Do not resuscitate; Z51.5 Encounter for palliative care; Z99.3 Dependence on wheelchair; K21.9 Gastro-esophageal reflux disease without esophagitis; E03.9 Hypothyroidism, unspecified; E61.1 Iron deficiency; G89.29 Other chronic pain
CPT/HCPCS: 81001; 96372; J1630

== ENCOUNTER 2017-07-20 05:39 | Inpatient (IN) | payer MEDICARE, BC, OTHER ==
[~2017-07-20] VITALS: Ht 162.6 cm; Wt 57.4 kg
[~2017-07-20 05:39] MED LIST: CLOT1CRE8 TOPICAL; COLA100C5; CRANCAP2 PO; DULO20 PO; FAMO20TA2 PO; FENT12DI T-DERMAL; FENT25T T-DERMAL; FERR325T20 PO; FURO20TA PO; GABA100C4 PO; LEVO.05 PO; LIOT25 PO; LORA-392 PO; LORA-650 PO; MELA1TAB31 PO; NEUR100C PO; NORC5TAB PO; NYST10007 TOPICAL; NYST15T TOPICAL; PLAV75TA29 PO; POTA20TA5 PO; SYSTSOL EACH EYE; TYLE325T PO; VITA1000 PO
[2017-07-20 05:54] VITALS: BP 124/57; PULSE 65; RESP 19; TEMP 98.9; O2SAT 95
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
[2017-07-20 07:35] LABS: BILIRUBIN, URINE NEG (NEG); BLOOD, URINE NEG (NEG); GLUCOSE,URINE NEG (NEG); KETONE, URINE NEG (NEG); NITRITE,URINE NEG (NEG); URINE COLOR LIGHT-YELLOW (YELLW/STRAW); URINE LEUKOCYTE ESTERASE NEG (NEG)
[2017-07-20] MEDS ORDERED: DEPA125T PO (07:47)
[2017-07-20] MEDS ORDERED: TRAZ100T10 PO (07:47)
[2017-07-20 08:00] VITALS: BP 134/73; PULSE 76; RESP 18; O2SAT 94
[2017-07-20 10:12] LABS: AUTOMATED NEUTROPHIL # 4.4 TH/MM3 (1.8-7.7); BASOPHIL % 0.5 % (0.0-2.0); EOSINOPHIL # 0.1 TH/MM3 (0-0.4); EOSINOPHIL % 1.6 % (0.0-4.0); HEMATOCRIT 40.3 % (35.0-46.0); HEMOGLOBIN 13.6 GM/DL (11.6-15.3); LYMPH % 21.3 % (9.0-44.0); LYMPHOCYTE # 1.5 TH/MM3 (1.0-4.8); MEAN CELL VOLUME 94.8 FL (80.0-100.0); MEAN CORPUSCULAR HEMOGLOBIN 32.1 PG (27.0-34.0); MEAN CORPUSCULAR HGB CONC 33.8 % (32.0-36.0); MEAN PLATELET VOLUME 9.6 FL (7.0-11.0); MONO % 13.3 % (0.0-8.0); MONOCYTE # 0.9 TH/MM3 (0-0.9); NEUT % 63.3 % (16.0-70.0); PLATELET COUNT 187 TH/MM3 (150-450); RED BLOOD COUNT 4.25 MIL/MM3 (4.00-5.30); RED CELL DISTRIBUTION WIDTH 13.5 % (11.6-17.2); WHITE BLOOD COUNT 6.9 TH/MM3 (4.0-11.0)
[2017-07-20 10:35] LABS: ALBUMIN 3.3 GM/DL (3.4-5.0); AST (GOT) 19 U/L (15-37); BICARBONATE 32.7 MEQ/L (21.0-32.0); BLOOD UREA NITROGEN 14 MG/DL (7-18); CHLORIDE 98 MEQ/L (98-107); CREATININE 0.81 MG/DL (0.50-1.00); GLOMERULAR FILTRATION RATE 67 ML/MIN (>89); GLUCOSE,RANDOM 97 MG/DL (74-106); SODIUM (NA) 137 MEQ/L (136-145)
[2017-07-20 10:36] LABS: ALT (GPT) 21 U/L (10-53)
[2017-07-20 10:38] LABS: ALKALINE PHOSPHATASE 158 U/L (45-117); TOTAL BILIRUBIN ADULT 1.1 MG/DL (0.2-1.0); TOTAL PROTEIN 7.7 GM/DL (6.4-8.2)
[2017-07-20 12:00] VITALS: BP 139/66; PULSE 64; RESP 16; O2SAT 100
[2017-07-20 17:24] VITALS: BP 145/66; PULSE 83; RESP 16; O2SAT 100
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
[2017-07-20] MEDS ORDERED: ACETAMINOPHEN 325 MG TAB PO PRN (17:45)
[2017-07-20] MEDS ORDERED: ALUMINUM/MAGNESIUM/SIMETH 30 ML CUP PO PRN (17:45)
[2017-07-20] MEDS ORDERED: MAGNESIUM HYDROXIDE SUSP 30 ML CUP PO PRN (17:45)
[2017-07-20 20:00] VITALS: BP 160/90; PULSE 91; RESP 16; TEMP 98.1; O2SAT 93
[2017-07-21 05:00] VITALS: BP 130/59; PULSE 77; RESP 16; TEMP 98.2; O2SAT 95
[2017-07-21 11:08] LABS: BICARBONATE 28.5 MEQ/L (21.0-32.0); BLOOD UREA NITROGEN 15 MG/DL (7-18); CALCIUM 9.4 MG/DL (8.5-10.1); CHLORIDE 103 MEQ/L (98-107); CREATININE 0.94 MG/DL (0.50-1.00); GLOMERULAR FILTRATION RATE 57 ML/MIN (>89); GLUCOSE,RANDOM 103 MG/DL (74-106); SODIUM (NA) 138 MEQ/L (136-145)
[2017-07-21 11:10] LABS: CHOLESTEROL 186 MG/DL (120-200); TRIGLYCERIDES 103 MG/DL (42-150)
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
[2017-07-21 11:35] LABS: CHOLESTEROL/ HDL RATIO 3.11 RATIO; HDL CHOLESTEROL 59.8 MG/DL (40.0-60.0); LDL CHOLESTEROL 106 MG/DL (0-99)
[2017-07-21 13:27] LABS: HEMOGLOBIN A1C 4.8 % (4.3-6.0)
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
[2017-07-21] MEDS: HALOPERIDOL 2 MG TAB PO SCH ×2 (14:00→20:58)
[2017-07-21] MEDS: fentaNYL 25 MCG/HR PATCH T-DERMAL SCH (15:45)
[2017-07-21 17:00] VITALS: BP 138/84; PULSE 93; RESP 18; TEMP 98.3
[2017-07-21] MEDS: FUROSEMIDE 20 MG TAB PO SCH (20:58)
[2017-07-22] MEDS: LEVOTHYROXINE SODIUM 50 MCG TAB PO SCH (06:41)
[2017-07-22] MEDS: FERROUS SULFATE 325 MG (65 MG ELEMENTAL IRON) TAB PO SCH (09:00)
[2017-07-22] MEDS: LIOTHYRONINE SODIUM 25 MCG TAB PO SCH (09:00)
[2017-07-22 09:13] VITALS: BP 152/77
[2017-07-22] MEDS: HALOPERIDOL 2 MG TAB PO SCH ×2 (09:20→21:05)
[2017-07-22] MEDS: CLOPIDOGREL 75 MG TAB PO SCH (09:20)
[2017-07-22] MEDS: CHOLECALCIFEROL (VIT D3) 1000 UNIT TAB PO SCH (09:20)
[2017-07-22] MEDS: FUROSEMIDE 20 MG TAB PO SCH ×2 (09:21→21:00)
--- NOTE | 2017-07-22 10:21 | HHI.PYPN ---
Subjective Remarks Patient seen for follow-up, chart reviewed. Discussion she staff reported the patient noted to be confused, alert and oriented only to person, disoriented, compliant with medications, tangential. Patient was found lying in hospital bed , cooperative. Patient states that she has been having some back pain but easily lying down helps and recalls events that happened when she fell and cause her injury. Patient reports having slept well, no problem eating and drinking, denies any exacerbation diarrhea. Patient denies any perceptual disturbances or delusions at this time. Patient reports feeling "okay". Review of Systems Except as stated in HPI: all other systems reviewed are Neg Mental Status Examination Appearance: Appropriate (patient appears clean and maintaining basic hygiene.) Consciousness: Alert Orientation: Person Motor Activity: Other (remain in bed) Speech: Other (ramble and singing during interview) Language: Adequate Fund of Knowledge: Inadequate Attention and Concentration: Inadequate (sleepy) Memory: Impaired Mood: Good Affect: Appropriate Thought Process & Associations: Tangential Thought Content: Other Hallucination Type: None Delusion Type: None Suicidal Ideation: No Suicidal Plan: No Suicidal Intention: No Homicidal Ideation: No Homicidal Plan: No Homicidal Intention: No Insight: Poor Judgment: Poor Results Vitals/IOs Vital Signs Date Time Temp Pulse Resp B/P (MAP) Pulse Ox O2 Delivery O2 Flow Rate FiO2 07/22/17 09:13 152/77 (102) 07/21/17 17:00 98.3 93 18 07/21/17 05:00 95 07/20/17 17:24 Room Air Assessment & Plan Problem List: (1) ALZHEIMER'S DISEASE WITH LATE ONSET ICD Codes: G30.1 - ALZHEIMER'S DISEASE WITH LATE ONSET (2) DEMENTIA IN OTH DISEASES CLASSD ELSWHR W BEHAVIORAL DISTURB ICD Codes: F02.81 - DEMENTIA IN OTH DISEASES CLASSD ELSWHR W BEHAVIORAL DISTURB Assessment & Plan Patient has not had any behavioral disturbances admission, has a, cooperative with staff and in pleasant. Patient tolerating medications well. Patient continues to endorse some back pain which hospitalist consult was requested for management of medical issues as well as pain management. Patient to continue current treatment. Social work intervention for psychosocial assessment, individual/group therapy and discharge disposition planning. Discharge planning in progress Justification for Cont. Inpt. At risk for further decompensation at lower level of care Discharge Planning To be determined Niko Malagon MD 15, 2018 10:21
--- NOTE | 2017-07-22 11:49 | HHI.PR ---
Subjective Remarks Patient seen and examined No acute event overnight Stable and currently afebrile. Objective Vitals Vital Signs Date Time Temp Pulse Resp B/P (MAP) Pulse Ox O2 Delivery O2 Flow Rate FiO2 07/22/17 09:13 152/77 (102) 07/21/17 17:00 98.3 93 18 138/84 (102) I/O 07/21/17 07/21/17 07/21/17 07/22/17 07/22/17 07/22/17 07:00 15:00 23:00 07:00 15:00 23:00 Intake Total 320 ml 150 ml 120 ml Balance 320 ml 150 ml 120 ml Intake Oral 320 ml 150 ml 120 ml Result Diagram: 07/20/17 0950 07/21/17 1015 Objective Remarks GENERAL: NAD SKIN: Warm and dry. HEAD: Normocephalic. EYES: No scleral icterus. No injection or drainage. NECK: Supple, trachea midline. No JVD or lymphadenopathy. CARDIOVASCULAR: Regular rate and rhythm without murmurs, gallops, or rubs. RESPIRATORY: Breath sounds equal bilaterally. No accessory muscle use. GASTROINTESTINAL: Abdomen soft, non-tender, nondistended. MUSCULOSKELETAL: No cyanosis, or edema. BACK: Nontender without obvious deformity. No CVA tenderness. A/P Problem List: (1) Dementia ICD Code: F03.90 - Unspecified dementia without behavioral disturbance (2) CAD (coronary artery disease) ICD Code: I25.10 - Atherosclerotic heart disease of [place] coronary artery without angina pectoris Status: Chronic (3) Hypothyroidism ICD Code: E03.9 - Hypothyroidism, unspecified Status: Chronic (4) CHF (congestive heart failure) ICD Code: I50.9 - Heart failure, unspecified Status: Chronic (5) Depression with anxiety ICD Code: F41.8 - Other specified anxiety disorders Assessment and Plan 87-year-old female with Dementia, psychosis Depression with anxiety - Treatment per psychiatry CHF, not exacerbated - Continue Lasix 20mg BID - Monitor electrolytes Hypothyroidism - TSH 1.84 - Continue Levothyroxine 25mcg and Cytomel HTN, stable CAD - Start Toprol-XL 12.5 mg daily - Continue Plavix Chronic pain Arthritis T12 compression fracture - Continue Fentanyl patch, monitor for pain. Patient is DNR, confirm this with daughter via phone. [facility] will sign off, reconsult when necessary Niko Laws MD Jul 22, 2017 11:49
[2017-07-22 12:03] LABS: BICARBONATE 27.6 MEQ/L (21.0-32.0); CALCIUM 8.9 MG/DL (8.5-10.1); CREATININE 0.85 MG/DL (0.50-1.00)
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
--- NOTE | 2017-07-22 15:39 | EKG ---
Date Performed: 07/21/2017 Time Performed: 14:29:18 PTAGE: 87 years EKG: ATRIAL FIBRILLATION INDETERMINATE AXIS SEPTAL MYOCARDIAL INFARCTION , PROBABLY OLD ABNORMAL ECG NO PREVIOUS TRACING DOCTOR: Joshua Cruz Interpretating Date/Time 07/22/2017 15:38:16
[2017-07-22] MEDS: ACETAMINOPHEN/HYDROcodone 325 MG/5 MG TAB PO PRN (16:09)
[2017-07-22 17:55] VITALS: BP 137/94; PULSE 99; RESP 18; TEMP 97.5; O2SAT 99
[2017-07-23] MEDS: LEVOTHYROXINE SODIUM 50 MCG TAB PO SCH (05:48)
[2017-07-23 06:00] VITALS: BP 160/91; PULSE 91; RESP 18; TEMP 97.4; O2SAT 96
[2017-07-23] MEDS: CHOLECALCIFEROL (VIT D3) 1000 UNIT TAB PO SCH (08:39)
[2017-07-23] MEDS: POTASSIUM CHLORIDE 20 MEQ CONTROLLED RELEASE TAB PO SCH (08:39)
[2017-07-23] MEDS: LIOTHYRONINE SODIUM 25 MCG TAB PO SCH (08:39)
[2017-07-23] MEDS: FUROSEMIDE 20 MG TAB PO SCH ×2 (08:39→17:26)
[2017-07-23] MEDS: METOPROLOL SUCCINATE 25 MG EXTENDED RELEASE TAB PO SCH (08:39)
[2017-07-23] MEDS: CLOPIDOGREL 75 MG TAB PO SCH (08:40)
[2017-07-23] MEDS: FERROUS SULFATE 325 MG (65 MG ELEMENTAL IRON) TAB PO SCH (08:40)
[2017-07-23] MEDS: HALOPERIDOL 2 MG TAB PO SCH ×2 (08:40→20:10)
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
[2017-07-23] MEDS: ACETAMINOPHEN/HYDROcodone 325 MG/5 MG TAB PO PRN ×2 (09:39→18:30)
[2017-07-23 18:34] VITALS: BP 158/70; PULSE 94; RESP 17; TEMP 98.4; O2SAT 98
[2017-07-24] MEDS: LEVOTHYROXINE SODIUM 50 MCG TAB PO SCH (04:56)
[2017-07-24 05:49] VITALS: BP 130/76; PULSE 80; RESP 18; TEMP 98.6; O2SAT 96
[2017-07-24] MEDS: LIOTHYRONINE SODIUM 25 MCG TAB PO SCH (08:21)
[2017-07-24] MEDS: POTASSIUM CHLORIDE 20 MEQ CONTROLLED RELEASE TAB PO SCH (08:21)
[2017-07-24] MEDS: CLOPIDOGREL 75 MG TAB PO SCH (08:21)
[2017-07-24] MEDS: CHOLECALCIFEROL (VIT D3) 1000 UNIT TAB PO SCH (08:21)
[2017-07-24] MEDS: FERROUS SULFATE 325 MG (65 MG ELEMENTAL IRON) TAB PO SCH (08:22)
[2017-07-24] MEDS: METOPROLOL SUCCINATE 25 MG EXTENDED RELEASE TAB PO SCH (08:22)
[2017-07-24] MEDS: HALOPERIDOL 2 MG TAB PO SCH ×2 (08:22→20:29)
[2017-07-24] MEDS: FUROSEMIDE 20 MG TAB PO SCH ×2 (09:00→16:44)
--- NOTE | 2017-07-24 13:48 | HHI.PYPN ---
Subjective Remarks Patient seen for follow-up, chart reviewed. Discussion she staff reported the patient has not been eating much noted to be having vomiting after eating solid food had difficulty with tolerating solids but tolerating liquids well. Patient was found in wheelchair on the unit but did recall cooperative. Patient is alert and oriented only to person area patient states that her daughter is coming to pick her up and taking her home. Patient reports that she has had difficulty with eating solid foods and has had episodes of emesis when attempting to eat. He reports sleeping well, denies any other physical complaints aside from chronic pain. Patient reports her mood has been "fine" noted to be good spirits, dying any perceptual disturbances or delusions. Review of Systems Except as stated in HPI: all other systems reviewed are Neg Mental Status Examination Appearance: Appropriate Consciousness: Alert Orientation: Person Motor Activity: Other (remain in bed) Speech: Unremarkable Language: Adequate Fund of Knowledge: Inadequate Attention and Concentration: Adequate Memory: Impaired Mood: Good Affect: Appropriate Thought Process & Associations: Tangential Thought Content: Other Hallucination Type: None Delusion Type: None Suicidal Ideation: No Suicidal Plan: No Suicidal Intention: No Homicidal Ideation: No Homicidal Plan: No Homicidal Intention: No Insight: Poor Judgment: Poor Results Vitals/IOs Vital Signs Date Time Temp Pulse Resp B/P (MAP) Pulse Ox O2 Delivery O2 Flow Rate FiO2 07/24/17 05:49 98.6 80 18 130/76 (94) 96 07/20/17 17:24 Room Air Intake and Output 07/24/17 07/24/17 07/25/17 08:00 16:00 00:00 Intake Total 4 ml Balance 4 ml Assessment & Plan Problem List: (1) ALZHEIMER'S DISEASE WITH LATE ONSET ICD Codes: G30.1 - ALZHEIMER'S DISEASE WITH LATE ONSET (2) DEMENTIA IN OTH DISEASES CLASSD ELSWHR W BEHAVIORAL DISTURB ICD Codes: F02.81 - DEMENTIA IN OTH DISEASES CLASSD ELSWHR W BEHAVIORAL DISTURB Assessment & Plan Patient at this time has not had any behavioral dyscontrol since admission, and cooperative with staff and compliant with treatment. We'll continue current treatment. We'll reconsult hospitalist due to recent reports of emesis during attempts to eat solid food. Dietitian consult requested. Continue to monitor mood and behavior. Discharge planning in progress Justification for Cont. Inpt. At risk for further decompensation at lower level of care Discharge Planning To be determined Niko Malagon MD Jul 24, 2017 13:48
[2017-07-24] MEDS: fentaNYL 25 MCG/HR PATCH T-DERMAL SCH (14:37)
[2017-07-24] MEDS: REMOVE OLD DURAGESIC (FENTANYL) PATCH T-DERMAL SCH (15:00)
--- NOTE | 2017-07-24 17:15 | HHI.PR ---
Subjective Remarks Patient was seen and examined secondary to dysphagia of solid food times several days per nurse report, however patient herself states she has been having difficulty swallowing solid food over the past 3 days Otherwise she has no other issues Objective Vitals Vital Signs Date Time Temp Pulse Resp B/P (MAP) Pulse Ox O2 Delivery O2 Flow Rate FiO2 07/24/17 05:49 98.6 80 18 130/76 (94) 96 07/23/17 21:29 20 07/23/17 18:34 98.4 94 17 158/70 (99) 98 I/O 07/23/17 07/23/17 07/23/17 07/24/17 07/24/17 07/24/17 06:59 14:59 22:59 06:59 14:59 22:59 Intake Total 720 ml 4 ml Balance 720 ml 4 ml Intake Oral 720 ml 4 ml # Voids 1 3 # Bowel Movements 1 Result Diagram: 07/20/17 0950 07/22/17 1113 Objective Remarks GENERAL: NAD SKIN: Warm and dry. HEAD: Normocephalic. EYES: No scleral icterus. No injection or drainage. NECK: Supple, trachea midline. No JVD or lymphadenopathy. CARDIOVASCULAR: Regular rate and rhythm without murmurs, gallops, or rubs. RESPIRATORY: Breath sounds equal bilaterally. No accessory muscle use. GASTROINTESTINAL: Abdomen soft, non-tender, nondistended. MUSCULOSKELETAL: No cyanosis, or edema. BACK: Nontender without obvious deformity. No CVA tenderness. A/P Problem List: (1) Dementia ICD Code: F03.90 - Unspecified dementia without behavioral disturbance (2) CAD (coronary artery disease) ICD Code: I25.10 - Atherosclerotic heart disease of [place] coronary artery without angina pectoris Status: Chronic (3) Hypothyroidism ICD Code: E03.9 - Hypothyroidism, unspecified Status: Chronic (4) CHF (congestive heart failure) ICD Code: I50.9 - Heart failure, unspecified Status: Chronic (5) Depression with anxiety ICD Code: F41.8 - Other specified anxiety disorders Assessment and Plan 87-year-old female with Dysphagia of solid food Consult speech therapy for swallow eval, consider barium swallow Dementia, psychosis Depression with anxiety - Treatment per psychiatry CHF, not exacerbated - Continue Lasix 20mg BID - Monitor electrolytes Hypothyroidism - TSH 1.84 - Continue Levothyroxine 25mcg and Cytomel HTN, stable CAD - Start Toprol-XL 12.5 mg daily - Continue Plavix Chronic pain Arthritis T12 compression fracture - Continue Fentanyl patch, monitor for pain. Patient is DNR, confirm this with daughter via phone. Niko Laws MD Jul 24, 2017 17:15
[2017-07-24 18:00] VITALS: BP 169/82; PULSE 91; RESP 18; TEMP 97.8; O2SAT 98
[2017-07-25 05:50] VITALS: BP 144/63; PULSE 78; RESP 18; TEMP 97.5; O2SAT 97
[2017-07-25] MEDS: LEVOTHYROXINE SODIUM 50 MCG TAB PO SCH (06:26)
[2017-07-25] MEDS: LIOTHYRONINE SODIUM 25 MCG TAB PO SCH (08:31)
[2017-07-25] MEDS: METOPROLOL SUCCINATE 25 MG EXTENDED RELEASE TAB PO SCH (08:31)
[2017-07-25] MEDS: FERROUS SULFATE 325 MG (65 MG ELEMENTAL IRON) TAB PO SCH (08:31)
[2017-07-25] MEDS: CLOPIDOGREL 75 MG TAB PO SCH (08:31)
[2017-07-25] MEDS: HALOPERIDOL 2 MG TAB PO SCH ×2 (08:31→21:02)
[2017-07-25] MEDS: CHOLECALCIFEROL (VIT D3) 1000 UNIT TAB PO SCH (08:32)
[2017-07-25] MEDS: POTASSIUM CHLORIDE 20 MEQ CONTROLLED RELEASE TAB PO SCH (08:32)
[2017-07-25] MEDS: FUROSEMIDE 20 MG TAB PO SCH (09:07)
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
--- NOTE | 2017-07-25 16:57 | HHI.PYPN ---
Subjective Remarks Patient seen for follow-up, chart reviewed. Discussion with nursing staff reported that patient had a good night, showered, and slept well. Patient was found sitting on wheelchair noted to be in good spirits. She is noted to continue with confusion, oriented only to person. Patient believes that she will be picked up by her daughter and taken home. She reports having difficulty with swallowing solid food with occasional emesis. She denies any other physical complaint aside from her chronic pain. Review of Systems Except as stated in HPI: all other systems reviewed are Neg Mental Status Examination Appearance: Appropriate Consciousness: Alert Orientation: Person Motor Activity: Other (remain in bed) Speech: Unremarkable Language: Adequate Fund of Knowledge: Inadequate Attention and Concentration: Adequate Memory: Impaired Mood: Good Affect: Appropriate Thought Process & Associations: Linear, Tangential (at times) Thought Content: Other Hallucination Type: None Delusion Type: None Suicidal Ideation: No Suicidal Plan: No Suicidal Intention: No Homicidal Ideation: No Homicidal Plan: No Homicidal Intention: No Insight: Poor Judgment: Poor Results Vitals/IOs Vital Signs Date Time Temp Pulse Resp B/P (MAP) Pulse Ox O2 Delivery O2 Flow Rate FiO2 07/25/17 05:50 97.5 78 18 144/63 (90) 97 Assessment & Plan Problem List: (1) ALZHEIMER'S DISEASE WITH LATE ONSET ICD Codes: G30.1 - ALZHEIMER'S DISEASE WITH LATE ONSET (2) DEMENTIA IN OTH DISEASES CLASSD ELSWHR W BEHAVIORAL DISTURB ICD Codes: F02.81 - DEMENTIA IN OTH DISEASES CLASSD ELSWHR W BEHAVIORAL DISTURB Assessment & Plan Patient continues with orientation only to person, no behavioral dyscontrol, cooperative with treatment and staff. Continue current treatment. No further work up as per GI consult; consult appreciated. Patient to continue soft diet. encourage patient to maintain adequate PO intake. Discharge planning in progress. Justification for Cont. Inpt. At risk for decompensation at lower level of care. Discharge Planning To be determined Niko Malagon MD Jul 25, 2017 16:57
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
[2017-07-25 17:53] VITALS: BP 134/71; PULSE 82; RESP 18; TEMP 97.3; O2SAT 100
[2017-07-26 05:30] VITALS: BP 168/79; PULSE 75; RESP 16; TEMP 98.2; O2SAT 98
[2017-07-26] MEDS: LEVOTHYROXINE SODIUM 50 MCG TAB PO SCH (05:48)
[2017-07-26] MEDS: CHOLECALCIFEROL (VIT D3) 1000 UNIT TAB PO SCH (09:40)
[2017-07-26] MEDS: METOPROLOL SUCCINATE 25 MG EXTENDED RELEASE TAB PO SCH (09:40)
[2017-07-26] MEDS: HALOPERIDOL 2 MG TAB PO SCH ×2 (09:40→21:39)
[2017-07-26] MEDS: POTASSIUM CHLORIDE 20 MEQ CONTROLLED RELEASE TAB PO SCH (09:40)
[2017-07-26] MEDS: CLOPIDOGREL 75 MG TAB PO SCH (09:40)
[2017-07-26] MEDS: LIOTHYRONINE SODIUM 25 MCG TAB PO SCH (09:40)
[2017-07-26] MEDS: FERROUS SULFATE 325 MG (65 MG ELEMENTAL IRON) TAB PO SCH (09:40)
[2017-07-26] MEDS: FUROSEMIDE 20 MG TAB PO SCH ×2 (10:05→17:47)
[2017-07-26] MEDS: ACETAMINOPHEN/HYDROcodone 325 MG/5 MG TAB PO PRN (11:42)
--- NOTE | 2017-07-26 11:50 | HHI.PYPN ---
Subjective Remarks Patient seen for follow-up, chart reviewed. Discussion nursing reported patient has not had any behavioral issues. Patient was found in wheelchair on the unit noted to be pleasant. Patient states that she is feeling "fine" continues to be alert and oriented only to person. Patient to continue as reported having difficulty with eating solid foods but states that she was able to have some morning. Patient continues with chronic pain which is managed by her current analgesic regimen. Patient did was noted in the day room attempting to disconnect under the patient's O2 [employer] machine and had to require redirection but was not agitated but mostly noted to be confused. Review of Systems Except as stated in HPI: all other systems reviewed are Neg Mental Status Examination Appearance: Appropriate Consciousness: Alert Orientation: Person Motor Activity: Other (remain in bed) Speech: Unremarkable Language: Adequate Fund of Knowledge: Inadequate Attention and Concentration: Adequate Memory: Impaired Mood: Good Affect: Appropriate Thought Process & Associations: Linear, Tangential (at times) Thought Content: Other Hallucination Type: None Delusion Type: None Suicidal Ideation: No Suicidal Plan: No Suicidal Intention: No Homicidal Ideation: No Homicidal Plan: No Homicidal Intention: No Insight: Poor Judgment: Poor Results Vitals/IOs Vital Signs Date Time Temp Pulse Resp B/P (MAP) Pulse Ox O2 Delivery O2 Flow Rate FiO2 07/26/17 05:30 98.2 75 16 168/79 (108) 98 Intake and Output 07/26/17 07/26/17 07/27/17 08:00 16:00 00:00 Intake Total 0 ml Balance 0 ml Assessment & Plan Problem List: (1) ALZHEIMER'S DISEASE WITH LATE ONSET ICD Codes: G30.1 - ALZHEIMER'S DISEASE WITH LATE ONSET (2) DEMENTIA IN OTH DISEASES CLASSD ELSWHR W BEHAVIORAL DISTURB ICD Codes: F02.81 - DEMENTIA IN OTH DISEASES CLASSD ELSWHR W BEHAVIORAL DISTURB Assessment & Plan Patient this time continues to be alert and oriented to person only. No behavioral disturbances or agitation. Patient had required redirection after attempting to disconnect the patient's oxygen machine but easily redirected. Continue to monitor mood and behavior. Continue current treatment. Continue to assess patient with ADLs. Discharge planning in progress Justification for Cont. Inpt. At risk for further decompensation if at lower level of care Discharge Planning To be determined Niko Malagon MD Jul 26, 2017 11:50
--- NOTE | 2017-07-26 12:39 | HHI.GIFU ---
Subjective Remarks Weak, assisted up to wheelchair to go to lunch per her family Chief complaint constipation which has been a chronic problem Patient unaware when her last bowel movement was Family is requesting simple meds such as milk of magnesia. No other acute pain. (Joan Perry) Objective Vitals I&O Vital Signs Date Time Temp Pulse Resp B/P (MAP) Pulse Ox O2 Delivery O2 Flow Rate FiO2 07/26/17 05:30 98.2 75 16 168/79 (108) 98 07/25/17 17:53 97.3 82 18 134/71 (92) 100 I/O 07/25/17 07/25/17 07/25/17 07/26/17 07/26/17 07/26/17 07:00 15:00 23:00 07:00 15:00 23:00 Intake Total 390 ml 360 ml 0 ml Balance 390 ml 360 ml 0 ml Intake Oral 390 ml 360 ml 0 ml # Voids 1 0 Laboratory Administered Medications Medications (Trade) Dose Ordered Sig/Keli Route PRN Reason Start Time Stop Time Status Last Admin Dose Admin Clopidogrel Bisulfate (Plavix) 75 mg DAILY PO 07/22/17 09:00 07/26/17 09:40 Ferrous Sulfate (Ferrous Sulfate) 325 mg DAILY PO 07/22/17 09:00 07/26/17 09:40 Cholecalciferol (Vitamin D3) 2,000 units DAILY PO 07/22/17 09:00 07/26/17 09:40 Fentanyl (Duragesic 25 Mcg Patch.72 Hr) 1 patch Q3D T-DERMAL 07/21/17 15:00 07/24/17 14:37 Levothyroxine Sodium (Synthroid) 50 mcg DAILY@0600 PO 07/22/17 06:00 07/26/17 05:48 Liothyronine Sodium (Cytomel) 25 mcg DAILY PO 07/22/17 09:00 07/26/17 09:40 Miscellaneous Information 1 Q3D T-DERMAL 07/24/17 15:00 07/24/17 15:00 Haloperidol (Haldol) 2 mg BID PO 07/21/17 14:00 07/26/17 09:40 Metoprolol Succinate (Toprol Xl) 12.5 mg DAILY PO 07/23/17 09:00 07/26/17 09:40 Potassium Chloride (KCl) 20 meq DAILY PO 07/23/17 09:00 07/26/17 09:40 Acetaminophen/ Hydrocodone Bitart ([place] 5-325 Mg) 1 tab Q12HR PRN PO PAIN SCALE 5 TO 10 07/22/17 12:00 07/26/17 11:42 Furosemide (Lasix) 20 mg BID@0900,1800 PO 07/23/17 18:00 07/26/17 10:05 Physical Exam HEENT: Pupils round and reactive to light; normocephalic; atraumatic; no jaundice. Morbid obesity, but appears to have had weight loss gradual. NECK: Neck is supple, CHEST: No active rhonchi or wheezing CARDIAC: Regular rate and rhythm ABDOMEN: Large, round, Soft, nondistended, nontender; soft bowel sounds EXTREMITIES: No clubbing, cyanosis, or edema. SKIN: Normal; no rash; no jaundice. TECHNICAL REP: Answers questions but not always appropriate, poor historian (Joan Perry) Assessment and Plan Plan Assessment: History - Dysphagia with regurgitation of food- History taken from Maryam MARADIAGA, pts daughter. She is aware of pts dysphagia and states this has been going on for months. She is an RN. She specifically stated she does not want the patient to have an endoscopy or modified barium swallow, and does not want any further evaluation regarding dysphagia. She reports that pt is awaiting placement at this time. Pt has never had EGD. Has been evaluated by speech therapy who reports pt spit out her yohana cracker and then later ate it and was able to swallow it. Pts daughter, Maryam is requesting soft food diet, with specific mention of foods including mashed potatoes, milk, yogurt, scrambled eggs. She states pt eats these foods in her halfway with little difficulty. Brief follow-up today but daughter again wants no aggressive procedures or treatments Does want treatment for constipation, milk of magnesia ordered daily and or when necessary. Plan: - No further imaging or invasive procedure sought at this time per pts daughter , medical decision makers, request - Soft food diet (with specific mention of mashed potatoes, milk, scrambled eggs , and yogurt) - GI will sign off, please reconsult as needed Pt has been seen and examined by myself and Dr. Alford and this note is written on his behalf (Joan Perry) Physician Comments Patient seen and examined Agree with above Continue with current supportive care Monitor labs Patient started refusing procedures Not much to add from a GI perspective we will sign off (Andreas Alford MD) Joan Perry Jul 26, 2017 12:39 Andreas Alford MD Jul 26, 2017 22:54
[2017-07-26] MEDS ORDERED: MAGNESIUM HYDROXIDE SUSP 30 ML CUP PO PRN (12:45)
[2017-07-26 17:30] VITALS: BP 121/44; PULSE 95; RESP 16; TEMP 98.2; O2SAT 96
[2017-07-27 06:00] VITALS: BP 138/65; PULSE 77; RESP 16; TEMP 97.3; O2SAT 97
[2017-07-27] MEDS: LEVOTHYROXINE SODIUM 50 MCG TAB PO SCH (06:01)
[2017-07-27] MEDS: CHOLECALCIFEROL (VIT D3) 1000 UNIT TAB PO SCH (08:35)
[2017-07-27] MEDS: POTASSIUM CHLORIDE 20 MEQ CONTROLLED RELEASE TAB PO SCH (08:35)
[2017-07-27] MEDS: FERROUS SULFATE 325 MG (65 MG ELEMENTAL IRON) TAB PO SCH (08:35)
[2017-07-27] MEDS: LIOTHYRONINE SODIUM 25 MCG TAB PO SCH (08:35)
[2017-07-27] MEDS: HALOPERIDOL 2 MG TAB PO SCH ×2 (08:35→20:46)
[2017-07-27] MEDS: METOPROLOL SUCCINATE 25 MG EXTENDED RELEASE TAB PO SCH (08:36)
[2017-07-27] MEDS: CLOPIDOGREL 75 MG TAB PO SCH (08:36)
[2017-07-27] MEDS: FUROSEMIDE 20 MG TAB PO SCH ×2 (08:47→18:00)
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
[2017-07-27] MEDS: ACETAMINOPHEN/HYDROcodone 325 MG/5 MG TAB PO PRN ×2 (14:57→16:33)
[2017-07-27] MEDS: REMOVE OLD DURAGESIC (FENTANYL) PATCH T-DERMAL SCH (15:00)
[2017-07-27] MEDS: fentaNYL 25 MCG/HR PATCH T-DERMAL SCH (15:01)
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
[2017-07-27 17:48] VITALS: BP 147/68; PULSE 94; RESP 18; TEMP 97.5; O2SAT 99
[2017-07-28 06:05] VITALS: BP 153/65; PULSE 89; RESP 16; TEMP 97.8; O2SAT 95
[2017-07-28] MEDS: LEVOTHYROXINE SODIUM 50 MCG TAB PO SCH (06:44)
[2017-07-28] MEDS: LIOTHYRONINE SODIUM 25 MCG TAB PO SCH (09:39)
[2017-07-28] MEDS: FERROUS SULFATE 325 MG (65 MG ELEMENTAL IRON) TAB PO SCH (09:39)
[2017-07-28] MEDS: POTASSIUM CHLORIDE 20 MEQ CONTROLLED RELEASE TAB PO SCH (09:40)
[2017-07-28] MEDS: CHOLECALCIFEROL (VIT D3) 1000 UNIT TAB PO SCH (09:40)
[2017-07-28] MEDS: HALOPERIDOL 2 MG TAB PO SCH (09:40)
[2017-07-28] MEDS: CLOPIDOGREL 75 MG TAB PO SCH (09:40)
[2017-07-28] MEDS: METOPROLOL SUCCINATE 25 MG EXTENDED RELEASE TAB PO SCH (09:45)
[2017-07-28] MEDS: ACETAMINOPHEN/HYDROcodone 325 MG/5 MG TAB PO PRN ×2 (09:58→20:48)
[2017-07-28] MEDS: FUROSEMIDE 20 MG TAB PO SCH ×2 (09:59→18:32)
[2017-07-28] MEDS ORDERED: ASPIRIN 325 MG TAB PO SCH (10:45)
[2017-07-28] MEDS ORDERED: NITROGLYCERIN 0.4 MG SL 25 TABS/BTL SL PRN (10:45)
--- NOTE | 2017-07-28 11:57 | RADRPT ---
EXAM DATE/TIME: 07/28/2017 10:45 [facility] COMPARISON: No previous studies available for comparison. INDICATIONS : Chest pain. MEDICAL HISTORY : None. SURGICAL HISTORY : None. ENCOUNTER: Initial ACUITY: 1 day PAIN SCORE: 4/10 LOCATION: Bilateral chest FINDINGS: The lungs are clear without infiltrate, nodule, or mass. There is no appreciable pleural effusion fo r technique. Heart and mediastinum are unremarkable. Left subclavian transvenous pacer wire is seen with tip in the right ventricle. There are atherosclerotic calcifications of the aorta due to chronic atherosclerotic disease. CONCLUSION: No acute cardiopulmonary disease. Александр Salter MD on July 28, 2017 at 11:53 Board Certified Radiologist. This report was verified electronically.
--- NOTE | 2017-07-28 12:02 | HHI.PR ---
Subjective Remarks The patient stated that she had left-sided chest pain. She said it started yesterday. She denied radiation. She denies shortness of breath. Discussed with nursing. Objective Vitals Vital Signs Date Time Temp Pulse Resp B/P (MAP) Pulse Ox O2 Delivery O2 Flow Rate FiO2 07/28/17 06:05 97.8 89 16 153/65 (94) 95 07/27/17 17:48 97.5 94 18 147/68 (94) 99 I/O 07/27/17 07/27/17 07/27/17 07/28/17 07/28/17 07/28/17 06:59 14:59 22:59 06:59 14:59 22:59 Intake Total 180 ml 250 ml 480 ml 120 ml 480 ml Balance 180 ml 250 ml 480 ml 120 ml 480 ml Intake Oral 180 ml 250 ml 480 ml 120 ml 480 ml # Voids 3 3 1 # Bowel Movements 0 Objective Remarks GENERAL: This is a well-nourished, well-developed patient, in no apparent distress. SKIN: Warm and dry. HEENT: Normocephalic. Pupils equal round and reactive. Nose without bleeding. Airway patent. NECK: Trachea midline. CARDIOVASCULAR: Regular rate and rhythm without murmurs, gallops, or rubs. Reproducible chest pain to palpation on the left. RESPIRATORY: Clear to auscultation. Breath sounds equal bilaterally. No wheezes , rales, or rhonchi. GASTROINTESTINAL: Abdomen soft, non-tender, nondistended. Bowel Sounds normoactive x4. MUSCULOSKELETAL: Extremities without clubbing, cyanosis, or edema. NEUROLOGICAL: Awake and alert. Oriented to person. No focal neuro deficit. Moves all extremities. Normal speech. Medications and IVs Current Medications Medications (Trade) Dose Ordered Sig/Keli Route Start Time Stop Time Status Last Admin (Tylenol) 650 mg Q4H PRN PO 07/20/17 17:45 (Mag-Al Plus Susp Liq) 30 ml Q6H PRN PO 07/20/17 17:45 (Plavix) 75 mg DAILY PO 07/22/17 09:00 07/28/17 09:40 (Ferrous Sulfate) 325 mg DAILY PO 07/22/17 09:00 07/28/17 09:39 (Vitamin D3) 2,000 units DAILY PO 07/22/17 09:00 07/28/17 09:40 (Duragesic 25 Mcg Patch.72 Hr) 1 patch Q3D T-DERMAL 07/21/17 15:00 07/27/17 15:01 (Synthroid) 50 mcg DAILY@0600 PO 07/22/17 06:00 07/28/17 06:44 (Cytomel) 25 mcg DAILY PO 07/22/17 09:00 07/28/17 09:39 Miscellaneous Information 1 Q3D T-DERMAL 07/24/17 15:00 07/27/17 15:00 (Haldol) 2 mg BID PO 07/21/17 14:00 07/28/17 09:40 (Toprol Xl) 12.5 mg DAILY PO 07/23/17 09:00 07/28/17 09:45 (KCl) 20 meq DAILY PO 07/23/17 09:00 07/28/17 09:40 (Kirkman 5-325 Mg) 1 tab Q12HR PRN PO 07/22/17 12:00 07/28/17 09:58 (Lasix) 20 mg BID@0900,1800 PO 07/23/17 18:00 07/28/17 09:59 (Milk Of Magnesia Liq) 30 ml DAILY PRN PO 07/26/17 12:45 (Aspirin) 325 mg NOW PO 07/28/17 10:45 07/29/17 10:44 (Nitrostat Sl) 0.4 mg Q5M PRN SL 07/28/17 10:45 A/P Problem List: (1) Dementia ICD Code: F03.90 - Unspecified dementia without behavioral disturbance (2) CAD (coronary artery disease) ICD Code: I25.10 - Atherosclerotic heart disease of [place] coronary artery without angina pectoris Status: Chronic (3) Hypothyroidism ICD Code: E03.9 - Hypothyroidism, unspecified Status: Chronic (4) CHF (congestive heart failure) ICD Code: I50.9 - Heart failure, unspecified Status: Chronic (5) Depression with anxiety ICD Code: F41.8 - Other specified anxiety disorders Assessment and Plan 87-year-old female with past medical history significant for CHF, COPD , CAD, dementia, HTN, back compression fracture, and rib fractures. Patient presented to the ED due to [facility] which [facility] at [facility], she was subsequently Enriquez acted. Patient is understanding patient psychiatry unit for further evaluation. Consulted for medical management. Dysphagia of solid food - Consult speech therapy for swallow evaluation and recommends pure thin liquids. - GI consult and has seen the patient. Spoke with daughter of the patient and daughter refused further examination of her dysphasia nor any diagnostics. Daughter stated to GI that patient is just waiting for placement. She can eat pured diet slowly since it's her favorite food. Chest pain EKG shows A fib, which is unchanged from prior. Chest pain is reproducible on exam. Possibly s/t costochondritis. May also be s/t dysphagia. - check trops x 3 and follow EKGs. - CXR pending. - pain control as needed. - oxygen and nebs as needed. Dementia, psychosis Depression with anxiety - Treatment per psychiatry CHF, not exacerbated - Continue Lasix 20mg BID - Monitor electrolytes - CXR pending. Hypothyroidism - TSH 1.84 - Continue Levothyroxine 25mcg and Cytomel HTN CAD - Continue Toprol-XL 12.5 mg daily - Continue Plavix Chronic pain Arthritis T12 compression fracture - Continue Fentanyl patch, monitor for pain. DVT prop teds, ambulation with assistance Tristan Parry DO Jul 28, 2017 12:02
--- NOTE | 2017-07-28 12:20 | EKG ---
Date Performed: 07/28/2017 Time Performed: 11:21:51 PTAGE: 87 years EKG: ATRIAL FIBRILLATION MODERATE ST DEPRESSION ABNORMAL QRS-T ANGLE ABNORMAL ECG Since PREVIOUS TRACING , no significant change noted PREVIOUS TRACIN07/21/2017 14.29 DOCTOR: Merlin Stern Interpretating Date/Time 07/28/2017 12:18:23
[2017-07-28 13:19] LABS: TROPONIN I 0.02 NG/ML (0.02-0.05)
--- NOTE | 2017-07-28 15:50 | HHI.PYPN ---
Subjective Remarks Patient was seen and case discussed with nursing. Patient is hard of hearing limiting the interview. Patient has been complaining of chest pain throughout the day and is been getting a workup by medicine. She remains confused and oriented 1. Behaving well on the unit Mental Status Examination Appearance: Appropriate Consciousness: Alert Orientation: Person Motor Activity: Other (remain in bed) Speech: Unremarkable Language: Adequate Fund of Knowledge: Inadequate Attention and Concentration: Adequate Memory: Impaired Mood: Good Affect: Appropriate Thought Process & Associations: Linear, Tangential (at times) Thought Content: Other Hallucination Type: None Delusion Type: None Suicidal Ideation: No Suicidal Plan: No Suicidal Intention: No Homicidal Ideation: No Homicidal Plan: No Homicidal Intention: No Insight: Poor Judgment: Poor Results Labs Test 07/28/17 12:08 Total Creatine Kinase 59 U/L Troponin I 0.02 NG/ML Vitals/IOs Vital Signs Date Time Temp Pulse Resp B/P (MAP) Pulse Ox O2 Delivery O2 Flow Rate FiO2 07/28/17 11:00 16 07/28/17 06:05 97.8 89 153/65 (94) 95 Intake and Output 07/28/17 07/28/17 07/29/17 08:00 16:00 00:00 Intake Total 600 ml 240 ml Balance 600 ml 240 ml Assessment & Plan Problem List: (1) ALZHEIMER'S DISEASE WITH LATE ONSET ICD Codes: G30.1 - ALZHEIMER'S DISEASE WITH LATE ONSET (2) DEMENTIA IN OTH DISEASES CLASSD ELSWHR W BEHAVIORAL DISTURB ICD Codes: F02.81 - DEMENTIA IN OTH DISEASES CLASSD ELSWHR W BEHAVIORAL DISTURB Assessment & Plan I will hold the Haldol given chest pain workup Justification for Cont. Inpt. Patient would decompensate in a less restrictive setting Avelino Merchant DO Jul 28, 2017 15:50
[2017-07-28 18:11] VITALS: BP 108/69; PULSE 90; RESP 18; TEMP 97.8; O2SAT 97
[2017-07-29 01:37] LABS: TROPONIN I 0.04 NG/ML (0.02-0.05)
[2017-07-29] MEDS: LEVOTHYROXINE SODIUM 50 MCG TAB PO SCH (05:32)
[2017-07-29 05:45] VITALS: BP 120/65; PULSE 69; RESP 20; TEMP 97.6; O2SAT 97
[2017-07-29] MEDS: METOPROLOL SUCCINATE 25 MG EXTENDED RELEASE TAB PO SCH (08:46)
[2017-07-29] MEDS: CHOLECALCIFEROL (VIT D3) 1000 UNIT TAB PO SCH (08:47)
[2017-07-29] MEDS: FERROUS SULFATE 325 MG (65 MG ELEMENTAL IRON) TAB PO SCH (08:47)
[2017-07-29] MEDS: CLOPIDOGREL 75 MG TAB PO SCH (08:47)
[2017-07-29] MEDS: LIOTHYRONINE SODIUM 25 MCG TAB PO SCH (08:47)
[2017-07-29] MEDS: POTASSIUM CHLORIDE 20 MEQ CONTROLLED RELEASE TAB PO SCH (08:47)
[2017-07-29] MEDS: FUROSEMIDE 20 MG TAB PO SCH (08:51)
[2017-07-29] MEDS ORDERED: POTA20TA5 PO (10:18)
[2017-07-29] MEDS ORDERED: FENT25T T-DERMAL (10:18)
[2017-07-29] MEDS ORDERED: LEVO.05 PO (10:18)
[2017-07-29] MEDS ORDERED: HALO2TAB PO (10:18)
[2017-07-29] MEDS ORDERED: METO1TAB42 PO (10:18)
[2017-07-29] MEDS ORDERED: ASA325 PO (10:18)
[2017-07-29] MEDS ORDERED: FERR325T20 PO (10:18)
[2017-07-29] MEDS ORDERED: NORC5TAB PO (10:18)
[2017-07-29] MEDS ORDERED: VITA1000 PO (10:18)
[2017-07-29] MEDS ORDERED: LIOT25 PO (10:18)
[2017-07-29] MEDS ORDERED: FURO20TA PO (10:18)
[2017-07-29] MEDS ORDERED: PLAV75TA29 PO (10:18)
[2017-07-29] MEDS ORDERED: NITR0.4S SL (10:27)
[2017-07-29 11:01] LABS: TROPONIN I LESS THAN 0.02 NG/ML (0.02-0.05)
--- NOTE | 2017-07-29 19:51 | EKG ---
Date Performed: 07/28/2017 Time Performed: 16:27:28 PTAGE: 87 years EKG: ATRIAL FIBRILLATION SEPTAL MYOCARDIAL INFARCTION , PROBABLY OLD Baseline artifact Since pre vious tracing, no significant change noted ABNORMAL ECG PREVIOUS TRACING : 07/28/2017 11.21 DOCTOR: Maria M Tay Interpretating Date/Time 07/29/2017 19:50:02
--- NOTE | 2017-07-29 19:51 | EKG ---
Date Performed: 07/28/2017 Time Performed: 21:25:26 PTAGE: 87 years EKG: ATRIAL FIBRILLATION SEPTAL MYOCARDIAL INFARCTION , PROBABLY OLD Baseline artifact Since pre vious tracing, no significant change noted ABNORMAL ECG PREVIOUS TRACING : 07/28/2017 16.27 DOCTOR: Maria M Tay Interpretating Date/Time 07/29/2017 19:50:18
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
== END 2017-07-29 11:45 | DRG 57 ==
LOC: NEPE 05:39 → NEDA 17:47 → H250 19:49
PROVIDERS: ADMIT Student in an Organized Health Care Education/Training Program; ATTEND Student in an Organized Health Care Education/Training Program
DX: G30.1 Alzheimer's disease with late onset (principal); F02.81 Dementia in other diseases classified elsewhere, unspecified severity, with behavioral disturbance; I11.0 Hypertensive heart disease with heart failure; I50.9 Heart failure, unspecified; R13.10 Dysphagia, unspecified; I48.91 Unspecified atrial fibrillation; I25.10 Atherosclerotic heart disease of native coronary artery without angina pectoris; J44.9 Chronic obstructive pulmonary disease, unspecified; E03.9 Hypothyroidism, unspecified; Z66 Do not resuscitate; H91.90 Unspecified hearing loss, unspecified ear; H54.7 Unspecified visual loss; G89.29 Other chronic pain; M19.90 Unspecified osteoarthritis, unspecified site; K59.00 Constipation, unspecified; R07.89 Other chest pain; Z95.0 Presence of cardiac pacemaker; Z87.891 Personal history of nicotine dependence
CPT/HCPCS: 71045; 80048; 80053; 80061; 80164; 81001; 82306; 82550; 82607; 83036; 84443; 84484; 85025; 93005; 99285

== ENCOUNTER 2017-08-06 07:58 | Emergency (ER) | payer MEDICARE, BC, OTHER ==
[~2017-08-06] VITALS: Ht 167.6 cm; Wt 70.0 kg
[~2017-08-06 07:58] MED LIST changes: +ASA325 PO; -CLOT1CRE8 TOPICAL; -COLA100C5; -CRANCAP2 PO; -DULO20 PO; -FAMO20TA2 PO; -FENT12DI T-DERMAL; -GABA100C4 PO; +HALO2TAB PO; -LORA-392 PO; -LORA-650 PO; -MELA1TAB31 PO; +METO1TAB42 PO; -NEUR100C PO; +NITR0.4S SL; -NYST15T TOPICAL; -SYSTSOL EACH EYE
[2017-08-06 08:11] VITALS: BP 147/83; PULSE 89; RESP 16; TEMP 97.6; O2SAT 95
[2017-08-06 08:43] VITALS: BP 158/77; PULSE 92; RESP 21; O2SAT 94
[2017-08-06] MEDS ORDERED: ACETAMINOPHEN 325 MG TAB PO ONE (08:45)
[2017-08-06] MEDS ORDERED: TETANUS/DIPHTHERIA TOXOID ADULT 0.5 ML VIAL IM ONE (08:45)
--- NOTE | 2017-08-06 09:00 | RADRPT ---
EXAM DATE/TIME: 08/06/2017 08:48 [facility] COMPARISON: No previous studies available for comparison. INDICATIONS : Fall, complains of pain and bruising of right shoulder MEDICAL HISTORY : None. SURGICAL HISTORY : None. ENCOUNTER: Initial ACUITY: 1 day PAIN SCORE: 5/10 LOCATION: Right shoulder FINDINGS: Multiple view examination of the right shoulder demonstrates no evidence of fracture or dislocation. Extensive soft tissue swelling. Defect in the superolateral humeral head likely related to old injury and external rotation. Bony mineralization is normal. CONCLUSION: Old injury to the humeral head. No acute fracture. Soft tissue swelling. Niko Jones MD on August 06, 2017 at 8:57 Board Certified Radiologist. This report was verified electronically.
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
--- NOTE | 2017-08-06 09:19 | RADRPT ---
EXAM DATE/TIME: 08/06/2017 08:59 [facility] COMPARISON: No previous studies available for comparison. INDICATIONS : Fell, Hit head, Laceration above right eye RADIATION DOSE: 17.64 CTDIvol (mGy) MEDICAL HISTORY : Dementia. Hypertension. SURGICAL HISTORY : Pacemaker. ENCOUNTER: Initial ACUITY: 1 day PAIN SCALE: 7/10 LOCATION: Bilateral neck TECHNIQUE: Volumetric scanning of the cervical spine was performed. Multiplanar reconstructions in the sagittal, coronal and oblique axial planes were performed. Using automated exposure control and adjustment o f the mA and/or kV according to patient size, radiation dose was kept as low as reasonably achievable to obtain optimal diagnostic quality images. DICOM format image data is available electronically f or review and comparison. FINDINGS: Soft tissues are normal other than extensive vascular calcifications of the carotid arteries both ini tial segment of the internal carotids. Bony structures are intact with no evidence fracture, compression, subluxa tion, or destructive change. Odontoid has a normal relationship to the arch of C1. Extensive degenera tive disc disease is noted C3-C7 most marked C3-4 and C4-5. Posterior uncovertebral hypertrophy inter spersed as well as osteophyte disc complex encroachment on the canal. CONCLUSION: Multilevel degenerative disc disease and degenerative changes. No acute bony abnormality. Froilan Dickson MD on August 06, 2017 at 9:12 Board Certified Radiologist. This report was verified electronically.
--- NOTE | 2017-08-06 09:21 | RADRPT ---
EXAM DATE/TIME: 08/06/2017 09:00 [facility] COMPARISON: No previous studies available for comparison. INDICATIONS : Fell, Hit head, Laceration above right eye RADIATION DOSE: 26.35 CTDIvol (mGy) MEDICAL HISTORY : Dementia. Hypertension. SURGICAL HISTORY : Pacemaker. ENCOUNTER: Initial ACUITY: 1 day PAIN SCORE: 7/10 LOCATION: Right facial TECHNIQUE: Volumetric scanning of the facial bones was performed. Using automated exposure control and adjustme nt of the mA and/or kV according to patient size, radiation dose was kept as low as reasonably achiev able to obtain optimal diagnostic quality images. DICOM format image data is available electronicall y for review and comparison. FINDINGS: ORBITS: The orbital and infraorbital osseous structures are intact. The retroconal structures have a normal configuration. No radiopaque foreign bodies are seen. NASAL BONE: The nasal bone and maxillary spine are intact ZYGOMATIC ARCHES: Symmetric without evidence of fracture. SINUSES: The maxillary, ethmoid and frontal sinuses are intact. Air-fluid level is noted in the right sphenoid compartment with no evidence of basilar skull fracture. NASAL CAVITY: The nasal septum is intact and midline. The lacrimal ducts are intact. SOFT TISSUES: No radiopaque foreign bodies seen. No soft-tissue swelling is seen. Calcifications internal carotid arteries in the siphon INTRACRANIAL: No intracranial air seen. CRIBIFORM PLATE: Grossly intact. CONCLUSION: No acute bony injury identified. Air-fluid level noted in the right sphenoid sinus co mpartment with no evidence of basilar skull fracture identified Froilan Dickson MD on August 06, 2017 at 9:16 Board Certified Radiologist. This report was verified electronically.
--- NOTE | 2017-08-06 10:15 | PD ---
HPI Chief Complaint: Fall Time Seen by Provider: 08:24 Travel History International Travel<30 days: No Contact w/Intl Traveler<30days: No Traveled to known affect area: No History of Present Illness HPI Patient is an 87-year-old who comes in from her assisted living facility after she fell out of her wheelchair. Patient is demented, she says she remembers sliding out of the chair and hitting her head and her shoulder. She does not really complain of anything. Patient is very hard of hearing. This happened just prior to arrival today. There is no loss of consciousness. She is at her baseline mental status. PFSH Past Medical History Hx Anticoagulant Therapy: Yes (PLAVIX) Anemia: Yes Arthritis: Yes Atrial Fibrillation: Yes Autoimmune Disease: No Anxiety: Yes Depression: Yes Cardiovascular Problems: Yes High Cholesterol: No Chemotherapy: No Congestive Heart Failure: Yes COPD: Yes Dementia: Yes Endocrine: Yes GERD: Yes Genitourinary: No Hypertension: Yes Immune Disorder: No Implanted Vascular Access Dvce: Yes Musculoskeletal: Yes Neurologic: Yes Reproductive: No Respiratory: Yes Radiation Therapy: No Thyroid Disease: Yes Past Surgical History AICD: No Arteriovenous Shunt: No Insulin Pump: No Joint Replacement: No Pacemaker: Yes (left chest) Social History Alcohol Use: No Tobacco Use: No Substance Use: No Allergies-Medications (Allergen,Severity, Reaction): Coded Allergies: Penicillins (Verified Allergy, Unknown, 04/11/17) baclofen (Verified Allergy, Unknown, 04/11/17) quetiapine (Verified Allergy, Unknown, 04/11/17) Reported Meds & Prescriptions Reported Meds & Active Scripts Active Potassium Chloride Microencaps 20 Meq Tab 20 Meq PO DAILY 30 Days Px Aspirin (Aspirin) 325 Mg Tab 325 Mg PO NOW 30 Days Metoprolol Succinate ER 24 HR (Metoprolol Succinate) 25 Mg Tab 12.5 Mg PO DAILY 30 Days Synthroid (Levothyroxine Sodium) 50 Mcg Tab 50 Mcg PO DAILY@0600 30 Days Furosemide 20 Mg Tab 20 Mg PO BID 30 Days Ferosul (Ferrous Sulfate) 325 Mg (65 Mg Iron) Tablet 325 Mg PO DAILY 30 Days Duragesic Patch 72 HR (Fentanyl) 25 Mcg/Hr Patch 1 Patch T-DERMAL Q3D 12 Days Remove old patch when new one placed. Plavix (Clopidogrel Bisulfate) 75 Mg Tab 75 Mg PO DAILY 30 Days [place] (Hydrocodone-Acetaminophen) 5-325 mg Tab 1 Tab PO TID PRN 7 Days Review of Systems ROS Limitations: Other: (Dementia) Physical Exam Narrative GENERAL: Awake and alert, in no acute distress. SKIN: Small abrasions to the right side of the forehead. HEAD: Atraumatic. Normocephalic. EYES: Left pupil appears to have had a surgical procedure performed.. No scleral icterus. Extraocular movements intact. ENT: Mucous membranes pink and moist. NECK: Trachea midline. No JVD. No cervical spine tenderness. CARDIOVASCULAR: Regular rate and rhythm. No murmur appreciated. RESPIRATORY: No accessory muscle use. Clear to auscultation. Breath sounds equal bilaterally. GASTROINTESTINAL: Abdomen soft, non-tender, nondistended. MUSCULOSKELETAL: No obvious deformities. No clubbing. No cyanosis. Hematoma to the right shoulder. No tenderness to palpation of the right arm, elbow, forearm. No tenderness to palpation of the hips or lower extremities. NEUROLOGICAL: Awake and alert, confused. No obvious cranial nerve deficits. Motor grossly within normal limits. Normal speech. Data Data Last Documented VS Vital Signs Date Time Temp Pulse Resp B/P (MAP) Pulse Ox O2 Delivery O2 Flow Rate FiO2 08/06/17 08:43 92 21 158/77 (104) 94 Room Air 08/06/17 08:[address] Brain W/O Iv Contrast(Rout) (08/06/17 ) Ct Facial Bones W/O Iv Cont (08/06/17 ) Ct Cerv Spine W/O Contrast (08/06/17 ) Shoulder, Complete (>2vws) (08/06/17 ) Acetaminophen (Tylenol) (08/06/17 08:45) Tetanus/Diphtheria Tox Adult (Tetanus/Di (08/06/17 08:45) MDM Medical Decision Making Medical Screen Exam Complete: Yes Emergency Medical Condition: Yes Medical Record Reviewed: Yes Differential Diagnosis Fall versus orbital fracture versus ICH versus cervical spine fracture versus humeral head fracture Narrative Course Patient is an 87-year-old female who comes in after she fell out of her wheelchair. She has abrasions to her forehead as well as a hematoma to her right humerus. CT head and C-spine as well as facial bones performed show no acute abnormalities. X-ray of the shoulder shows soft tissue swelling, no fracture. Patient was given Tylenol. Tetanus was updated. She will be discharged back to her living facility. Last 24 hours Impressions Shoulder X-Ray 08/06/17 0000 Signed Impressions: Service Date/Time: Sunday, August 06, 2017 08:48 - CONCLUSION: Old injury to the humeral head. No acute fracture. Soft tissue swelling. Niko Jones MD Maxillofacial CT 08/06/17 0000 Signed Impressions: Service Date/Time: Sunday, August 06, 2017 09:00 - CONCLUSION: No acute bony injury identified. Air-fluid level noted in the right sphenoid sinus compartment with no evidence of basilar skull fracture identified Froilan Dickson MD Head CT 08/06/17 0000 Signed Impressions: Service Date/Time: Sunday, August 06, 2017 08:56 - CONCLUSION: No acute intracranial abnormality with atrophy and microvascular ischemic deep white matter demyelinization. Air-fluid level noted in the right sphenoid sinus compartment there Froilan Dickson MD Cervical Spine CT 08/06/17 0000 Signed Impressions: Service Date/Time: Sunday, August 06, 2017 08:59 - CONCLUSION: Multilevel degenerative disc disease and degenerative changes. No acute bony abnormality. Froilan Dickson MD Diagnosis Primary Impression: Fall Qualified Codes: W19.XXXA - Unspecified fall, initial encounter Additional Impression: Abrasion Patient Instructions: Abrasion (ED), Fall Prevention (ED), General Instructions Additional Instructions: Keep the wounds clean and dry. Take Tylenol as needed for pain. Follow-up with a primary care doctor. Return to the ED as needed for any worsening symptoms. Disposition: 01 DISCHARGE HOME Condition: Stable Palmira Chahal MD Aug 06, 2017 10:15
== END 2017-08-06 10:53 | disposition home or self-care (01) ==
LOC: NEPE 07:58
DX: S00.81XA Abrasion of other part of head, initial encounter (principal); F03.90 Unspecified dementia, unspecified severity, without behavioral disturbance, psychotic disturbance, mood disturbance, and anxiety; I11.0 Hypertensive heart disease with heart failure; I50.9 Heart failure, unspecified; E07.9 Disorder of thyroid, unspecified; W05.0XXA Fall from non-moving wheelchair, initial encounter; Y92.099 Unspecified place in other non-institutional residence as the place of occurrence of the external cause; Z23 Encounter for immunization
CPT/HCPCS: 70450; 70486; 72125; 73030; 90471; 90714

== ENCOUNTER 2018-02-22 13:08 | Observation (INO) ==
[2018-02-22] MEDS ORDERED: Lidocaine PF 1% Inj 30 ML Vial INFILTRATN ONE (13:33)
[2018-02-22 13:54] LABS: Baso # (Auto) 0.1 th/mm3 (0.0-0.2); Baso % (Auto) 0.6 % (0.0-2.0); Eos % (Auto) 0.6 % (0.0-4.0); Hematocrit 41.4 % (35.0-46.0); Hemoglobin 13.6 gm/dL (11.6-15.3); Lymph # (Auto) 0.9 th/mm3 (1.0-4.8); Lymph % (Auto) 11.6 % (9.0-44.0); Mean Corpuscular HGB Conc 32.9 % (32.0-36.0); Mean Corpuscular Hemoglobin 30.1 pg (27.0-34.0); Mean Corpuscular Volume 91.4 fL (80.0-100.0); Mean Platelet Volume 9.7 fL (7.0-11.0); Mono # (Auto) 1.1 th/mm3 (0.0-0.9); Mono % (Auto) 14.2 % (0.0-8.0); Neut # (Auto) 5.8 th/mm3 (1.8-7.7); Platelet Count 222 th/mm3 (150-450); Red Blood Count 4.53 mil/mm3 (4.00-5.30); Red Cell Distribution Width 15.7 % (11.6-17.2)
--- NOTE | 2018-02-22 13:56 | ED ---
HPI General Chief Complaint: Fall Stated Complaint: Fall Time Seen by Provider: 02/22/18 13:27 Source: EMS, RN notes reviewed and old records reviewed Mode of arrival: EMS Limitations: altered mental status History of Present Illness HPI Narrative: 87-year-old female the presents to the ED for evaluation of possible fall. Patient has a significant history of dementia and psychiatric disorders. Patient herself is not a good historian. Cannot tell us what happened. She apparently sustained a fall today. Unclear if it was witnessed or not. She did suffer a laceration to her head and has multiple bruises to her head. Some appear to be old. She also has bruising on her legs from what appears to be old injuries. Currently she cannot really give me any history and she answer some questions but not well. Most of the history is obtained from ED nurse report and [facility] report. She does appear to have a laceration to the right side of her head. Patient does take blood thinners. She does complain of pain on her belly when I palpate her belly. Again history is limited because of the patient's mental status. Related Data Home Medications Medication Instructions Recorded Confirmed Robafen 100 mg PO Q6HR 02/22/18 02/22/18 clopidogrel 75 mg PO DAILY 02/22/18 02/22/18 fentanyl 1 patch TRANSDERMAL Q72H 02/22/18 02/22/18 ferrous sulfate 325 mg PO DAILY 02/22/18 02/22/18 furosemide 20 mg PO DAILY 02/22/18 02/22/18 hydrocodone-acetaminophen 1 tab PO Q4-6H PRN 02/22/18 02/22/18 levothyroxine 50 mcg PO DAILY 02/22/18 02/22/18 lorazepam 1 mg PO DAILY 02/22/18 02/22/18 magnesium hydroxide [Milk of 5 ml PO DAILY PRN 02/22/18 02/22/18 Magnesia] metoprolol succinate 12.5 mg PO DAILY 02/22/18 02/22/18 potassium chloride 20 meq PO DAILY 02/22/18 02/22/18 Allergies Allergy/AdvReac Type Severity Reaction Status Date / Time quetiapine Allergy Intermediate Anxiety Verified 02/22/18 13:34 baclofen Allergy Unknown Lethargy Verified 02/22/18 13:34 Penicillins Allergy Unknown Rash Verified 02/22/18 13:34 Review of Systems ROS: all other systems reviewed are negative [facility] Medical History Medical History Anxiety (Acute) Dementia (Acute) Pacemaker (Acute) Social History Social History Substance History: No History of Abuse Smoking Status: Unknown if ever smoked How Often Do You Have a Drink Containing Alcohol: Unable to Obtain Immunization History Tetanus Immunization: Unsure Hx Influenza Vaccine This Season: No Exam Narrative Exam Narrative: GENERAL: Well-appearing SKIN: Focused skin assessment warm/dry. HEAD: Atraumatic. Normocephalic. Patient does have bruising and swelling on the left side of her face as well as the right side of her face on the forehead. She does have what appears to be superficial laceration about 1 cm with some bleeding noted. Little blood noted on the right side of the head and the hair. No sign of any other lacerations after area was cleaned. EYES: Pupils equal and round. No scleral icterus. No injection or drainage. ENT: No nasal bleeding or discharge. Mucous membranes pink and moist. Tongue is midline. No uvula deviation. No sign of laceration or injury to the mouth. NECK: Trachea midline. No JVD. CARDIOVASCULAR: Regular rate and rhythm. No murmur appreciated. RESPIRATORY: No accessory muscle use. Clear to auscultation. Breath sounds equal bilaterally. GASTROINTESTINAL: Abdomen soft, tender to touch of her abdomen., nondistended. Hepatic and splenic margins not palpable. MUSCULOSKELETAL: No obvious deformities. No clubbing. No cyanosis. No edema. Full range of motion of the upper and lower extremities bilaterally. 2+ pulses bilaterally. Patient does have multiple bruising noted on the knees as well as the arms. She does have a bruise on the right knee but does not appear to be in any pain and able to move the knee fully. No obvious hip pain. No obvious lumbar, thoracic, cervical spine tenderness to palpation. NEUROLOGICAL: Awake and alert. No obvious cranial nerve deficits. Motor grossly within normal limits. Normal speech. PSYCHIATRIC: Appropriate mood and affect; insight and judgment normal. Procedures Laceration Laceration 1: Site: scalp Side (If applicable): right Size (cm): 1 Description: stellate Depth: simple, single layer Anesthetic used: lidocaine 1% Anesthesia technique:: local infiltration Amount (mL): 6 Pre-repair:: wound explored, irrigated extensively and deep structures intact Skin layer closed with: prolene Size (cm): 4-0 Number of sutures:: 4 Technique:: horizontal mattress Course Initial Documented Vital Signs Temperature 98.6 F 02/22/18 13:26 Pulse Rate 80 02/22/18 13:26 Respiratory Rate 20 02/22/18 13:26 Blood Pressure 134/59 L 02/22/18 13:26 Pulse Oximetry 100 02/22/18 13:26 Last Documented Vital Signs Temperature 98.6 F 02/22/18 13:26 Pulse Rate 107 H 02/22/18 17:11 Respiratory Rate 18 02/22/18 17:11 Blood Pressure 141/71 H 02/22/18 17:11 Pulse Oximetry 97 02/22/18 17:11 Medical Decision Making MDM Narrative Medical decision making narrative: 87-year-old female that presents to the ED for evaluation of possible fall. Patient was properly examined and was found to have signs and symptoms consistent with fall. Unclear etiology as patient herself cannot really me a history about what happened and it is unclear from [facility] report the nurse reported patient had a witnessed fall or not. She has been here before for something similar in the past. At this time labs and imaging were ordered. Patient will have repair of her laceration and stating procedure note. Labs and imaging showed no sign of acute disease. patient was given ativan and haldol to help calm her down as she continued to get up multiple times and could not lay still for CT scan. Patient did not calm down. My attending Dr Lopez evaluated the patient and recommends trying versed for patient getting CT scan. This was done. CT was done and was negative for acute disease. Patient altered but appears to be at baseline. Case discussed with my attending and Kentrell from the hospice of the patient who with our case management will try to arrange transportation back to facility. ED nurse came and talked to me, as apparently her facility will not take her back secondary to psychiatric issues. Per our case management, psych screen ordered. Medical Screen Exam Complete: Yes Emergency Medical Condition: Yes Differential Diagnosis Differential Diagnosis: Fracture versus head injury versus laceration versus abrasion versus facial injury versus abdominal pain Medical Records Medical records reviewed: Yes I reviewed the patient's medical records. Lab Data Lab results reviewed: Yes I reviewed the patient's lab results. Lab results narrative: UA negative troponin negatvie Result diagrams: 02/22/18 13:35 02/22/18 13:35 Lab Results 02/22/18 02/22/18 02/22/18 Range/Units 13:35 13:35 13:35 WBC 8.0 (4.0-11.0) th/mm3 RBC 4.53 (4.00-5.30) mil/mm3 Hgb 13.6 (11.6-15.3) gm/dL Hct 41.4 (35.0-46.0) % MCV 91.4 (80.0-100.0) fL MCH 30.1 (27.0-34.0) pg MCHC 32.9 (32.0-36.0) % RDW 15.7 (11.6-17.2) % Plt Count 222 (150-450) th/mm3 MPV 9.7 (7.0-11.0) fL Neut % (Auto) 73.0 H (16.0-70.0) % Lymph % (Auto) 11.6 (9.0-44.0) % [place] % (Auto) 14.2 H (0.0-8.0) % Eos % (Auto) 0.6 (0.0-4.0) % Baso % (Auto) 0.6 (0.0-2.0) % Neut # (Auto) 5.8 (1.8-7.7) th/mm3 Lymph # (Auto) 0.9 L (1.0-4.8) th/mm3 [place] # (Auto) 1.1 H (0.0-0.9) th/mm3 Eos # (Auto) 0.0 (0.0-0.4) th/mm3 Baso # (Auto) 0.1 (0.0-0.2) th/mm3 WBC Differential . Differential Comment Auto diff final PT 12.7 H (9.8-11.6) sec INR 1.3 Ratio APTT 33.3 H (24.3-30.1) sec Sodium 140 (136-145) meq/L Potassium 4.3 (3.5-5.1) meq/L Chloride 103 (98-107) meq/L Carbon Dioxide 28.8 (21.0-32.0) meq/L Anion Gap 8 (5-15) meq/L BUN 21 H (7-18) mg/dL Creatinine 0.94 (0.50-1.00) mg/dL Estimated GFR 57 L (>89) mL/min Random Glucose 106 (74-106) mg/dL Calcium 8.8 (8.5-10.1) mg/dL Troponin I 0.02 (0.02-0.05) ng/mL Urine Color (Yellw/Straw) Urine Clarity (Clear) Urine pH (5.0-8.5) Ur Specific [place] (1.002-1.035) Urine Protein (Neg-Trace) mg/dL Urine Glucose (UA) (Negative) mg/dL Urine Ketones (Negative) mg/dL Urine Occult Blood (Negative) Urine Nitrate (Negative) Urine Bilirubin (Negative) Urine Urobilinogen (Less than 2) mg/dL Ur Leukocyte Esterase (Negative) Urine RBC (0-3) /hpf Urine WBC (0-5) /hpf Micro UA Comment Urine Culture Comments 02/22/18 Range/Units 13:42 WBC (4.0-11.0) th/mm3 RBC (4.00-5.30) mil/mm3 Hgb (11.6-15.3) gm/dL Hct (35.0-46.0) % MCV (80.0-100.0) fL MCH (27.0-34.0) pg MCHC (32.0-36.0) % RDW (11.6-17.2) % Plt Count (150-450) th/mm3 MPV (7.0-11.0) fL Neut % (Auto) (16.0-70.0) % Lymph % (Auto) (9.0-44.0) % [place] % (Auto) (0.0-8.0) % Eos % (Auto) (0.0-4.0) % Baso % (Auto) (0.0-2.0) % Neut # (Auto) (1.8-7.7) th/mm3 Lymph # (Auto) (1.0-4.8) th/mm3 [place] # (Auto) (0.0-0.9) th/mm3 Eos # (Auto) (0.0-0.4) th/mm3 Baso # (Auto) (0.0-0.2) th/mm3 WBC Differential Differential Comment PT (9.8-11.6) sec INR Ratio APTT (24.3-30.1) sec Sodium (136-145) meq/L Potassium (3.5-5.1) meq/L Chloride (98-107) meq/L Carbon Dioxide (21.0-32.0) meq/L Anion Gap (5-15) meq/L BUN (7-18) mg/dL Creatinine (0.50-1.00) mg/dL Estimated GFR (>89) mL/min Random Glucose (74-106) mg/dL Calcium (8.5-10.1) mg/dL Troponin I (0.02-0.05) ng/mL Urine Color Straw (Yellw/Straw) Urine Clarity Clear (Clear) Urine pH 7.0 (5.0-8.5) Ur Specific [place] 1.004 (1.002-1.035) Urine Protein Negative (Neg-Trace) mg/dL Urine Glucose (UA) Negative (Negative) mg/dL Urine Ketones Negative (Negative) mg/dL Urine Occult Blood Small H (Negative) Urine Nitrate Negative (Negative) Urine Bilirubin Negative (Negative) Urine Urobilinogen Less than 2 (Less than 2) mg/dL Ur Leukocyte Esterase Negative (Negative) Urine RBC 7 H (0-3) /hpf Urine WBC 1 (0-5) /hpf Micro UA Comment Cath-culture not ind Urine Culture Comments Cath-cult not ind Imaging Data Attestation: I personally reviewed and interpreted this imaging study as follows : Radiologist's impression: Chest X-Ray 02/22/18 13:33 CONCLUSION: 1. No acute abnormality or significant interval change. Head CT 02/22/18 13:33 CONCLUSION: 1. Senescent changes without acute intracranial abnormality. 2. Anterolateral right scalp hematoma. . Pelvis X-Ray 02/22/18 13:35 CONCLUSION: 1. No acute fracture or dislocation. Discharge Plan Discharge Disposition Patient Disposition: 30 Still Patient Discharge Condition Condition: Stable Discharge Details Anticipated Discharge Date: 02/22/18 Diagnosis: Head injury, Laceration, Dementia Physicians Team ED Provider: Jonah Lopez ED Midlevel Provider: Suhail Zelaya Primary Care Provider: UNKNOWN, Rxs /Orders / Referrals /Forms Prescriptions: No Action hydrocodone-acetaminophen 5-325 mg Tablet 1 tab PO Q4-6H PRN (Reason: Pain, Moderate) RF: 0 clopidogrel 75 mg Tablet 75 mg PO DAILY RF: 0 potassium chloride 20 mEq Packet 20 meq PO DAILY RF: 0 magnesium hydroxide [Milk of Magnesia] 400 mg/5 mL Suspension 5 ml PO DAILY PRN (Reason: Constipation) RF: 0 ferrous sulfate 325 mg (65 mg iron) Tablet 325 mg PO DAILY RF: 0 furosemide 20 mg Tablet 20 mg PO DAILY RF: 0 metoprolol succinate 25 mg Tablet Extended Release 24 Hr 12.5 mg PO DAILY RF: 0 lorazepam 1 mg Tablet 1 mg PO DAILY RF: 0 fentanyl 25 mcg/hr Patch 72 Hour 1 patch TRANSDERMAL Q72H RF: 0 levothyroxine 50 mcg Capsule 50 mcg PO DAILY RF: 0 Robafen 100 mg PO Q6HR RF: 0 Discharge Instructions Patient Printed Instructions: Fall Prevention for Older Adults (ED) Additional Instructions: Get sutures removed in 10 days. F/u with PCP. See ED if worst. Discharge Interventions Interventions: Vital Signs Last Done: 02/22/18 17:11 Status ED Status: Ready for Discharge
[2018-02-22 14:03] LABS: Activated Partial Thrombo Time 33.3 sec (24.3-30.1); INR 1.3 Ratio; Prothrombin Time 12.7 sec (9.8-11.6)
[2018-02-22 14:08] LABS: Troponin I 0.02 ng/mL (0.02-0.05)
[2018-02-22 14:12] LABS: Bilirubin,Urine Negative (Negative); Clarity,Urine Clear (Clear); Color,Urine Straw (Yellw/Straw); Glucose,Urine (UA) Negative (Negative); Leukocyte Esterase,Urine Negative (Negative); Nitrite,Urine Negative (Negative); Specific Gravity,Urine 1.004 (1.002-1.035)
[2018-02-22 14:16] LABS: Calcium 8.8 mg/dL (8.5-10.1); Carbon Dioxide 28.8 meq/L (21.0-32.0); Potassium 4.3 meq/L (3.5-5.1)
--- NOTE | 2018-02-22 14:20 | XR ---
EXAM DATE: 02/22/2018 2:16 PM EDT AGE/SEX: 87 years / Female INDICATIONS: Trauma. Patient fell. CLINICAL DATA: This is the patient's initial encounter. Patient reports that signs and symptoms have been present for 1 day and indicates a pain score of Nonresponsive. MEDICAL/SURGICAL HISTORY: Non-responsive. Non-responsive. COMPARISON: [facility] [place]ST SINGLE AP, 07/28/2017. . FINDINGS: Stable single lead pacemaker in place. No new focal pleural or parenchymal opacities. Cardiomediastin al contours are stable given differences in technique. Osseous structures are grossly intact. CONCLUSION: 1. No acute abnormality or significant interval change. Electronically signed by: Nolberto Rushing MD 02/22/2018 2:19 PM EDT
--- NOTE | 2018-02-22 14:23 | XR ---
EXAM DATE: 02/22/2018 2:18 PM EDT AGE/SEX: 87 years / Female INDICATIONS: Contusion. Patient fell. CLINICAL DATA: This is the patient's initial encounter. Patient reports that signs and symptoms have been present for 1 day and indicates a pain score of Nonresponsive. MEDICAL/SURGICAL HISTORY: Non-responsive. Non-responsive. COMPARISON: No prior exams available for comparison. FINDINGS: Examination of the pelvis demonstrates no evidence of fracture or dislocation. Bony mineralization i s decreased. There is no widening of the sacroiliac joints. No foreign body is identified. CONCLUSION: 1. No acute fracture or dislocation. Electronically signed by: Nolberto Rushing MD 02/22/2018 2:21 PM EDT
[2018-02-22] MEDS ORDERED: Haloperidol Inj 5 MG/ML Ampul IM ONE (14:47)
[2018-02-22] MEDS ORDERED: Midazolam Inj 5 MG/ML 1 ML Vial ONE (16:31)
--- NOTE | 2018-02-22 17:01 | CT ---
EXAM DATE: 02/22/2018 4:54 PM EDT AGE/SEX: 87 years / Female INDICATIONS: Trauma, fall. CLINICAL DATA: This is the patient's initial encounter. Patient reports that signs and symptoms have been present for 1 day and indicates a pain score of Nonresponsive. MEDICAL/SURGICAL HISTORY: . Non-responsive. RADIATION DOSE: 56.35 CTDI (mGy) COMPARISON: [facility] [place], CT BRAIN W/O CONTRAST, 08/06/2017. . TECHNIQUE: CT of the head without contrast. Using automated exposure control and adjustment of the mA and/or kV according to patient size, radiation dose was kept as low as reasonably achievable to ob tain optimal diagnostic quality images. DICOM format image data is available electronically for revi ew and comparison. FINDINGS: Cerebrum: Moderate diffuse cerebral atrophy. The ventricles are normal for degree of atrophy. No himanshu dence of midline shift, mass lesion, hemorrhage or acute infarction. No extraaxial fluid collections are seen. Posterior Fossa: The cerebellum and brainstem are intact. The 4th ventricle is midline. The cerebe llopontine angle is unremarkable. Extracranial: The visualized portion of the orbits is intact. Anterolateral right scalp hematoma. Skull: The calvaria is intact. No evidence of skull fracture. CONCLUSION: 1. Senescent changes without acute intracranial abnormality. 2. Anterolateral right scalp hematoma. . Electronically signed by: Nolberto Rushing MD 02/22/2018 4:59 PM EDT
--- NOTE | 2018-02-23 14:59 | ECG ---
Date Performed: 02/22/2018 Time Performed: 13:55:52 PTAGE: 87 years EKG: ATRIAL FIBRILLATION LOW QRS VOLTAGE IN EXTREMITY LEADS NONSPECIFIC ST & T-WAVE ABNORMALITY ABNORMAL RHYTHM ECG Since PREVIOUS TRACING , no significant change noted. Poor initial anterior forces are still pr esent. PREVIOUS TRACIN07/28/2017 21.25 DOCTOR: Long Shafer Interpretating Date/Time 02/23/2018 14:58:57
--- NOTE | 2018-02-24 12:02 | ED ---
HPI - Psych - General Source: EMS, RN notes reviewed, old records reviewed Mode of arrival: EMS Limitations: altered mental status - History of Present Illness MD complaint: altered mental status Onset (ago): year(s) Duration: constant History of same: Yes Relieving factors: none Exacerbating factors: none - General Chief Complaint: Fall Stated Complaint: Fall Time Seen by Provider: 02/24/18 10:17 - History of Present Illness HPI Narrative: This is an 87 year-old female who presented to this facility voluntarily for repeated falls. Apparently, upon discharge, her facility refused to take her back due to "psychiatric issues". According to the medical provider's note case management requested a psychiatric screen be completed. This patient is known to the psychiatric department at this facility with two previous admissions for dementia with behavioral issues. She has no other mental health history that I can ascertain. Upon examination, I find her with a 1:1 sitter in Delta pod attempting to get off of the stretcher. She has multiple bruises and injuries of various ages. She is grossly demented, oriented to self only. I assisted with placing her back on the stretcher in a safe position and while she appeared slightly frustrated, she was not physical or aggressive. She came with a MAR which lists Buspar, Depakote, and ativan scheduled daily. I have also been informed that she is a Hospice patient. She is clean and disheveled, clad in a hospital gown. She speaks in word salad. I am unable to obtain any meaningful information from her. (Katelynn Chester) - Related Data Home Medications Medication Instructions Recorded Confirmed Robafen 100 mg PO Q6HR 02/22/18 02/22/18 clopidogrel 75 mg PO DAILY 02/22/18 02/22/18 fentanyl 1 patch TRANSDERMAL Q72H 02/22/18 02/22/18 ferrous sulfate 325 mg PO DAILY 02/22/18 02/22/18 furosemide 20 mg PO DAILY 02/22/18 02/22/18 hydrocodone-acetaminophen 1 tab PO Q4-6H PRN 02/22/18 02/22/18 levothyroxine 50 mcg PO DAILY 02/22/18 02/22/18 lorazepam 1 mg PO DAILY 02/22/18 02/22/18 magnesium hydroxide [Milk of 5 ml PO DAILY PRN 02/22/18 02/22/18 Magnesia] metoprolol succinate 12.5 mg PO DAILY 02/22/18 02/22/18 potassium chloride 20 meq PO DAILY 02/22/18 02/22/18 buspirone 10 mg PO Q8HR 02/24/18 02/24/18 divalproex 250 mg PO BID 02/24/18 02/24/18 temazepam 15 mg PO HS 02/24/18 02/24/18 trazodone 100 mg PO HS 02/24/18 02/24/18 Allergies Allergy/AdvReac Type Severity Reaction Status Date / Time quetiapine Allergy Intermediate Anxiety Verified 02/22/18 13:34 baclofen Allergy Unknown Lethargy Verified 02/22/18 13:34 Penicillins Allergy Unknown Rash Verified 02/22/18 13:34 Review of Systems All other systems reviewed negative except as stated in HPI [facility] - History History Provided By: Wind Turbine Machinist / EMT - Medical History Medical History: Medical History (Last Reviewed 02/24/18 @ 11:46 by ADAM Mathis) Anxiety Dementia Pacemaker - Tobacco History Smoking Status: Unknown if ever smoked - Alcohol History How Often Do You Have a Drink Containing Alcohol: Unable to Obtain - Substance Use History Substance History: No History of Abuse - Immunization History Tetanus Immunization: Unsure Hx Influenza Vaccine This Season: No Psychiatric History - Psychiatric History Psychiatric Treatment History: History of Psychiatric Treatment, History of Hospitalization in a Psychiatric Facility History of Inpatient Treatment: Yes Firearms in Home: No - Psychiatric History Two previous admissions at this facility for dementia w/behavioral disturbances. (Katelynn Chester) Physical Exam - General Limitations: altered mental status General appearance: alert, in no apparent distress - Head Head exam: other (Injury noted to forehead) - Neurological Exam Neurological exam: Present: alert, oriented X3 - Psychiatric Psychiatric exam: Present: normal affect, normal mood, anxious Mental Status Examination Appearance: Appropriate, Disheveled Consciousness: Alert Orientation: Person Motor Activity: Other (sitting on stretcher) Language: Word salad Fund of Knowledge: Poor Attention and Concentration: Inadequate Memory: Impaired Mood: Appropriate, Good Affect: Appropriate, Euthymic Thought Process & Associations: Disorganized Thought Content: Other (unable to assess due to gross dementia) Hallucination Type: None Delusion Type: None Insight: Poor Judgment: Poor Initial Documented Vital Signs Temperature 98.6 F 02/22/18 13:26 Pulse Rate 80 02/22/18 13:26 Respiratory Rate 20 02/22/18 13:26 Blood Pressure 134/59 L 02/22/18 13:26 Pulse Oximetry 100 02/22/18 13:26 Last Documented Vital Signs Temperature 98.3 F 02/24/18 09:36 Pulse Rate 82 02/24/18 09:36 Respiratory Rate 18 02/24/18 09:36 Blood Pressure 145/71 H 02/24/18 09:36 Pulse Oximetry 99 02/24/18 09:36 MDM - Psych - Diagnosis (1) Dementia Status: Acute - Lab Data Result diagrams: 02/22/18 13:35 02/22/18 13:35 - MDM Narrative Medical decision making narrative: This is an 87 year-old female with advanced dementia and gross confusion. She presented to this facility for a fall and has ended up being a placement issue. Her current SNF refuse to take her back, due to her "psychiatric issues". A review of the facilities MAR show she's currently scheduled to take Buspar, Depakote, and Ativan. Apparently, the issue with the patient is that she likes to walk, but she falls, therefore she is kept from walking. This appears to frustrate her. Upon examination she is oriented to self only and is grossly confused, which appears to be her baseline. She has not had any behavioral issues. Due to the advanced state of her dementia, there is no reason to believe she would receive any therapeutic benefit from an admission. She does not meet criteria for admission to inpatient psychiatry. Thank you for the consult. (Katelynn Chester) - Lab Data Lab Results 02/22/18 02/22/18 02/22/18 Range/Units 13:35 13:35 13:35 WBC 8.0 (4.0-11.0) th/mm3 RBC 4.53 (4.00-5.30) mil/mm3 Hgb 13.6 (11.6-15.3) gm/dL Hct 41.4 (35.0-46.0) % MCV 91.4 (80.0-100.0) fL MCH 30.1 (27.0-34.0) pg MCHC 32.9 (32.0-36.0) % RDW 15.7 (11.6-17.2) % Plt Count 222 (150-450) th/mm3 MPV 9.7 (7.0-11.0) fL Neut % (Auto) 73.0 H (16.0-70.0) % Lymph % (Auto) 11.6 (9.0-44.0) % [place] % (Auto) 14.2 H (0.0-8.0) % Eos % (Auto) 0.6 (0.0-4.0) % Baso % (Auto) 0.6 (0.0-2.0) % Neut # (Auto) 5.8 (1.8-7.7) th/mm3 Lymph # (Auto) 0.9 L (1.0-4.8) th/mm3 [place] # (Auto) 1.1 H (0.0-0.9) th/mm3 Eos # (Auto) 0.0 (0.0-0.4) th/mm3 Baso # (Auto) 0.1 (0.0-0.2) th/mm3 WBC Differential . Differential Comment Auto diff final PT 12.7 H (9.8-11.6) sec INR 1.3 Ratio APTT 33.3 H (24.3-30.1) sec Sodium 140 (136-145) meq/L Potassium 4.3 (3.5-5.1) meq/L Chloride 103 (98-107) meq/L Carbon Dioxide 28.8 (21.0-32.0) meq/L Anion Gap 8 (5-15) meq/L BUN 21 H (7-18) mg/dL Creatinine 0.94 (0.50-1.00) mg/dL Estimated GFR 57 L (>89) mL/min Random Glucose 106 (74-106) mg/dL Calcium 8.8 (8.5-10.1) mg/dL Troponin I 0.02 (0.02-0.05) ng/mL Urine Color (Yellw/Straw) Urine Clarity (Clear) Urine pH (5.0-8.5) Ur Specific [place] (1.002-1.035) Urine Protein (Neg-Trace) mg/dL Urine Glucose (UA) (Negative) mg/dL Urine Ketones (Negative) mg/dL Urine Occult Blood (Negative) Urine Nitrate (Negative) Urine Bilirubin (Negative) Urine Urobilinogen (Less than 2) mg/dL Ur Leukocyte Esterase (Negative) Urine RBC (0-3) /hpf Urine WBC (0-5) /hpf Micro UA Comment Urine Culture Comments 02/22/18 Range/Units 13:42 WBC (4.0-11.0) th/mm3 RBC (4.00-5.30) mil/mm3 Hgb (11.6-15.3) gm/dL Hct (35.0-46.0) % MCV (80.0-100.0) fL MCH (27.0-34.0) pg MCHC (32.0-36.0) % RDW (11.6-17.2) % Plt Count (150-450) th/mm3 MPV (7.0-11.0) fL Neut % (Auto) (16.0-70.0) % Lymph % (Auto) (9.0-44.0) % [place] % (Auto) (0.0-8.0) % Eos % (Auto) (0.0-4.0) % Baso % (Auto) (0.0-2.0) % Neut # (Auto) (1.8-7.7) th/mm3 Lymph # (Auto) (1.0-4.8) th/mm3 [place] # (Auto) (0.0-0.9) th/mm3 Eos # (Auto) (0.0-0.4) th/mm3 Baso # (Auto) (0.0-0.2) th/mm3 WBC Differential Differential Comment PT (9.8-11.6) sec INR Ratio APTT (24.3-30.1) sec Sodium (136-145) meq/L Potassium (3.5-5.1) meq/L Chloride (98-107) meq/L Carbon Dioxide (21.0-32.0) meq/L Anion Gap (5-15) meq/L BUN (7-18) mg/dL Creatinine (0.50-1.00) mg/dL Estimated GFR (>89) mL/min Random Glucose (74-106) mg/dL Calcium (8.5-10.1) mg/dL Troponin I (0.02-0.05) ng/mL Urine Color Straw (Yellw/Straw) Urine Clarity Clear (Clear) Urine pH 7.0 (5.0-8.5) Ur Specific [place] 1.004 (1.002-1.035) Urine Protein Negative (Neg-Trace) mg/dL Urine Glucose (UA) Negative (Negative) mg/dL Urine Ketones Negative (Negative) mg/dL Urine Occult Blood Small H (Negative) Urine Nitrate Negative (Negative) Urine Bilirubin Negative (Negative) Urine Urobilinogen Less than 2 (Less than 2) mg/dL Ur Leukocyte Esterase Negative (Negative) Urine RBC 7 H (0-3) /hpf Urine WBC 1 (0-5) /hpf Micro UA Comment Cath-culture not ind Urine Culture Comments Cath-cult not ind
--- NOTE | 2018-02-24 17:38 | P.PNIM ---
Subjective Interval history: Patient presents status post fall with laceration and repair. Placement from the ER been difficult. Patient transition to our care team for further monitoring without inpatient admit for observation status admit. Physical Exam Vital signs: Vital Signs 02/23/18 19:00 02/24/18 09:36 02/24/18 16:00 Temperature 97.9 F 98.3 F 97.0 F L Pulse Rate 81 82 88 Respiratory Rate 14 18 16 Blood Pressure 114/67 145/71 H 131/62 Pulse Oximetry 97 99 98 Intake & Output 02/23/18 02/24/18 02/24/18 18:59 06:59 18:59 Other: # Urine Diapers 1 Narrative: GENERAL: NAD, A&Ox3 HEAD: Normocephalic. NECK: Supple, trachea midline. No lymphadenopathy. EYES: No scleral icterus. No injection or drainage. CARDIOVASCULAR: Regular rate and rhythm without murmurs, gallops, or rubs. RESPIRATORY: Breath sounds equal bilaterally. No accessory muscle use. GASTROINTESTINAL: Abdomen soft, non-tender, nondistended. MUSCULOSKELETAL: No cyanosis, or edema. SKIN: Warm and dry. NEURO: No focal neurological deficits. Results - Labs CBC & Chem 7: 02/22/18 13:35 02/22/18 13:35 Assessment and Plan - Plan 87-year-old female with end-stage dementia awaiting placement End-stage dementia Fall Laceration Laceration has been repaired Continue pursuit for placement with case management Patient holding with us until placement achieved No admit status DVT prophylaxis SCDs
[2018-02-24] MEDS: traZODone 100 MG Tablet PO SCH (20:37)
[2018-02-24] MEDS: Divalproex 250 MG DR Tablet PO SCH (20:37)
[2018-02-25] MEDS: Levothyroxine 50 MCG Tablet PO SCH (07:11)
[2018-02-25] MEDS: Furosemide 20 MG Tablet PO SCH (10:10)
[2018-02-25] MEDS: Divalproex 250 MG DR Tablet PO SCH ×2 (10:11→21:28)
[2018-02-25] MEDS: Potassium Chloride 20 MEQ Pwd Pkt PO SCH (10:12)
[2018-02-25] MEDS: Ferrous Sulfate 325 MG Tablet PO SCH (10:12)
[2018-02-25] MEDS: traZODone 100 MG Tablet PO SCH (21:28)
[2018-02-26] MEDS: Levothyroxine 50 MCG Tablet PO SCH (05:34)
[2018-02-26] MEDS: Divalproex 250 MG DR Tablet PO SCH ×2 (08:19→21:21)
[2018-02-26] MEDS: Ferrous Sulfate 325 MG Tablet PO SCH (08:21)
[2018-02-26] MEDS: Furosemide 20 MG Tablet PO SCH (08:21)
[2018-02-26] MEDS: Potassium Chloride 20 MEQ Pwd Pkt PO SCH (08:22)
--- NOTE | 2018-02-26 15:59 | P.NPEVAL ---
Patient History - Record/History Review Reason for Referral: The patient is a 87 year old unknown handed woman who was admitted to the ED on 02/22/2018 for a fall. This patient has a history of dementia and psychiatric disorders and she awaits placement. She is referred for baseline neurobehavioral status examination to assess cognitive, behavioral and emotional aspects of the injury and to provide treatment recommendations. [facility] - History History Provided By: Window Tinter / EMT - Medical History Medical History: Medical History (Last Reviewed 02/24/18 @ 11:46 by ADAM Mathis) Anxiety Dementia Pacemaker - Tobacco History Smoking Status: Unknown if ever smoked - Alcohol History How Often Do You Have a Drink Containing Alcohol: Unable to Obtain - Substance Use History Substance History: No History of Abuse - Immunization History Tetanus Immunization: Unsure Hx Influenza Vaccine This Season: No Medications Active Medications Hydrocodone Bitart/Acetaminophen ([place] 5/325) 1 tab PO Q4H PRN PRN Reason: Pain, Moderate Last Admin: 02/26/18 08:19 Dose: 1 tab Al Hydroxide/Mg Hydroxide (Milk Of Magnesia Liq) 30 ml PO Q12H PRN PRN Reason: Mild Constipation Last Admin: 02/25/18 10:12 Dose: 30 ml Al Hydroxide/Mg Hydroxide (Milk Of Magnesia Liq) 5 ml PO DAILY PRN PRN Reason: Constipation Buspirone HCl (Buspar) 10 mg PO Q8HR [facility] Last Admin: 02/26/18 05:34 Dose: 10 mg Clopidogrel Bisulfate (Plavix) 75 mg PO DAILY [facility] Last Admin: 02/26/18 08:22 Dose: 75 mg Divalproex Sodium (Depakote Dr) 250 mg PO BID [facility] Last Admin: 02/26/18 08:19 Dose: 250 mg Ferrous Sulfate (Ferosul) 325 mg PO DAILY [facility] Last Admin: 02/26/18 08:21 Dose: 325 mg Furosemide (Lasix) 20 mg PO DAILY [facility] Last Admin: 02/26/18 08:21 Dose: 20 mg Levothyroxine Sodium (Synthroid) 50 mcg PO DAILY@0600 [facility] Last Admin: 02/26/18 05:34 Dose: 50 mcg Metoprolol Succinate (Toprol Xl) 12.5 mg PO DAILY [facility] Last Admin: 02/26/18 08:21 Dose: 12.5 mg Miscellaneous (Pill Splitter) 1 each OTHER DAILY [facility] Last Admin: 02/26/18 15:00 Dose: 1 each Potassium Chloride (Kcl Powder) 20 meq PO DAILY [facility] Last Admin: 02/26/18 08:22 Dose: 20 meq Trazodone HCl (Desyrel) 100 mg PO HS [facility] Last Admin: 02/25/18 21:28 Dose: 100 mg Mental Status Assessment - Mental Status Orientation: disoriented to: Self, Place, Time, Situation Mental Status: Impaired: Thought processing, Language/interactions, Attention, Learning/memory, Problem-solving, Visuospatial/construction, Self-regulation, Other Absent: Hallucinations, Delusions Adjustment/Coping Assessment - Adjustment/Coping Adjustment/Coping: Severe: Awareness, Insight Affect: Full range - Observation In terms of emotional functioning, the patient demonstrated significant challenges. This patient demonstrated significant signs of agitation, impulsivity and disinhibition, and she was unable to be redirected. There was evidence of a formal thought disorder related to brain-related pathology. No evidence of depression or anxiety was able to be detected as she was non compliant with this examiner. Thought content appeared free from suicidal, homicidal or paranoid ideation, and thought processes were tangential. The patients mood was demanding, and her affect was labile. The patient appears to possess no insight and awareness into their situation and within the limits of this brief evaluation, extremely poor judgment. Behavior - Behavior Agitation: Moderate Treatment Engagement: No effort - Observation Behaviorally, the patient demonstrated significant signs of agitation, impulsivity and disinhibition. She was unable to be redirected. - Goals LTG Status: Deferred STG Status: Deferred - Team Members Team Members: Neuropsychologist Diagnosis/Discharge Plan - Diagnosis (1) Major neurocognitive disorder due to Alzheimer's disease, probable, with behavioral disturbance Status: Acute Impression: This 87 year old woman who presented to the ED following a fall with a history of dementia and psychiatric disorders, who was essentially untestable in a formal sense, demonstrated profound impairments of orientation, memory and complex reasoning ability. She demonstrated profoundly impaired insight, awareness and judgment. Her clinical presentation is consistent with advanced major neurocognitive disorder due to Alzheimer's disease. Maximizing Acute Care Outcome: Consideration for pharmacological management of her neurobehavioral disorder is recommended. At this point in her disease process, the patient does not have cognitive capacity as the patient is unable to understand a situation and its likely consequences, nor is the patient able to manipulate information rationally. It is my clinical opinion that this patient will not regain her decision making capacity. - Discharge Planning Anticipated Problems: Ongoing areas of concern will include behavioral impulsivity, lack of insight and judgment, which not expected to improve with time or treatment. It is my clinical opinion that once her neurobehavioral disorder is more effectively managed, she will require placement in an ECF. Treatment Plan: Neurobehavioral management of this patient may include increasing VPA to 250 QID , unless medically contraindicated. Avoid the use of benzos as such use typically exacerbates confusion in the elderly and in persons with neurological pathology, for which this patient has both. I will continue to follow with you to help ensure an optimal therapeutic outcome. Thank you for the opportunity to assist in this patients care. Lisandro Mancuso, Ph.D., ABPP Board Certified in Clinical Neuropsychology [place] [employer] Professional Psychology [place] Licensed Psychologist #[id number]
[2018-02-26] MEDS ORDERED: Haloperidol Inj 5 MG/ML Ampul IM PRN (19:44)
[2018-02-26] MEDS: traZODone 100 MG Tablet PO SCH (21:21)
[2018-02-27] MEDS: Levothyroxine 50 MCG Tablet PO SCH (06:40)
[2018-02-27] MEDS: Potassium Chloride 20 MEQ Pwd Pkt PO SCH (10:11)
[2018-02-27] MEDS: Divalproex 250 MG DR Tablet PO SCH ×2 (10:17→21:08)
[2018-02-27] MEDS: Furosemide 20 MG Tablet PO SCH (10:18)
[2018-02-27] MEDS: Ferrous Sulfate 325 MG Tablet PO SCH (10:18)
[2018-02-27] MEDS: traZODone 100 MG Tablet PO SCH (21:09)
[2018-02-28] MEDS: Levothyroxine 50 MCG Tablet PO SCH (05:59)
[2018-02-28] MEDS: Furosemide 20 MG Tablet PO SCH (09:51)
[2018-02-28] MEDS: Potassium Bicarbonate 25 MEQ Effervescent Tablet PO SCH (09:51)
[2018-02-28] MEDS: Divalproex 250 MG DR Tablet PO SCH ×2 (09:51→18:28)
[2018-02-28] MEDS: Ferrous Sulfate 325 MG Tablet PO SCH (09:52)
[2018-02-28] MEDS ORDERED: Carbamide Peroxide 6.5% Otic Drops 15 ML Bottle EACH EAR ONE (10:00)
[2018-02-28] MEDS: Haloperidol Inj 5 MG/ML Ampul IM PRN (20:14)
[2018-02-28] MEDS: traZODone 50 MG Tablet PO SCH (20:14)
[2018-03-01] MEDS: Divalproex 250 MG DR Tablet PO SCH ×3 (04:28→19:14)
[2018-03-01] MEDS: Levothyroxine 50 MCG Tablet PO SCH (06:06)
[2018-03-01] MEDS: Potassium Bicarbonate 25 MEQ Effervescent Tablet PO SCH (09:24)
[2018-03-01] MEDS: Ferrous Sulfate 325 MG Tablet PO SCH (09:25)
[2018-03-01] MEDS: Furosemide 20 MG Tablet PO SCH (09:25)
[2018-03-01] MEDS: traZODone 50 MG Tablet PO SCH (21:17)
[2018-03-02] MEDS: Divalproex 250 MG DR Tablet PO SCH ×3 (01:01→18:01)
[2018-03-02] MEDS: Haloperidol Inj 5 MG/ML Ampul IM PRN ×2 (01:32→08:12)
[2018-03-02] MEDS: Levothyroxine 50 MCG Tablet PO SCH (06:21)
[2018-03-02] MEDS: Potassium Bicarbonate 25 MEQ Effervescent Tablet PO SCH (08:28)
[2018-03-02] MEDS: Ferrous Sulfate 325 MG Tablet PO SCH (08:29)
[2018-03-02] MEDS: Furosemide 20 MG Tablet PO SCH (08:29)
[2018-03-02] MEDS: traZODone 50 MG Tablet PO SCH (20:39)
[2018-03-03] MEDS: Haloperidol Inj 5 MG/ML Ampul IM PRN (01:46)
[2018-03-03] MEDS: Divalproex 250 MG DR Tablet PO SCH ×3 (01:50→18:37)
[2018-03-03] MEDS: Levothyroxine 50 MCG Tablet PO SCH (07:41)
[2018-03-03] MEDS: Ferrous Sulfate 325 MG Tablet PO SCH (10:00)
[2018-03-03] MEDS: Furosemide 20 MG Tablet PO SCH (10:01)
[2018-03-03] MEDS: Potassium Bicarbonate 25 MEQ Effervescent Tablet PO SCH (13:09)
[2018-03-03] MEDS: traZODone 50 MG Tablet PO SCH (20:11)
[2018-03-04] MEDS: Divalproex 250 MG DR Tablet PO SCH ×3 (02:35→18:08)
[2018-03-04] MEDS: Levothyroxine 50 MCG Tablet PO SCH (07:11)
--- NOTE | 2018-03-04 09:46 | P.PNIM ---
Subjective Interval history: Admitted to observation unit for neurocognitive behavior, danger to self and others. Confuse, [place], Denies pain or discomfort. Does not respond to all questions but follows some commands. Physical Exam Vital signs: Vital Signs 03/03/18 10:00 03/03/18 12:00 03/03/18 16:00 Temperature 98.6 F 97.9 F 98.9 F Pulse Rate 85 59 L 62 Respiratory Rate 16 16 16 Blood Pressure 136/59 L 129/54 L 108/59 L Pulse Oximetry 98 97 98 03/03/18 20:00 03/04/18 00:00 03/04/18 04:00 Temperature 97.5 F L 98.0 F 98.1 F Pulse Rate 72 76 58 L Respiratory Rate 18 16 Blood Pressure 102/58 L Pulse Oximetry 98 03/04/18 08:00 Temperature 97.4 F L Pulse Rate 62 Respiratory Rate 16 Blood Pressure 139/59 L Pulse Oximetry 97 Intake & Output 03/03/18 03/04/18 03/04/18 18:59 06:59 18:59 Other: # Voids 9 Date of Last Bowel Movement 03/03/18 03/03/18 # Bowel Movements 1 Narrative: GENERAL: NAD, elderly female HEAD: Normocephalic. NECK: Supple, trachea midline. EYES: No scleral icterus. No injection or drainage. CARDIOVASCULAR: Regular rate and rhythm without murmurs, gallops, or rubs. RESPIRATORY: Breath sounds equal bilaterally. No accessory muscle use. GASTROINTESTINAL: Abdomen soft, non-tender, nondistended. MUSCULOSKELETAL: No cyanosis, or edema. SKIN: Warm and dry. Ecchymosis left facial area, bilateral upper extremities, right head. NEURO: No focal neurological deficits. Results - Labs CBC & Chem 7: 02/22/18 13:35 02/22/18 13:35 Assessment and Plan - Plan 87-year-old female with end-stage dementia awaiting placement End-stage dementia Fall Laceration -Laceration has been repaired -Continue pursuit for placement with case management -Patient holding with us until placement achieved -Continue home medications HTN CAD -Continue home medication Plavix, Lasix, Metroprolol -Stable BP Trend Hypothyroidism -Continue levothyroxine DVT prophylaxis SCDs Code Status: DNR Discussed Condition With: Nursing, Dr. Prado Discharge Planning: DC when placement is arranged
[2018-03-04] MEDS: Potassium Bicarbonate 25 MEQ Effervescent Tablet PO SCH (11:55)
[2018-03-04] MEDS: Ferrous Sulfate 325 MG Tablet PO SCH (11:56)
[2018-03-04] MEDS: Furosemide 20 MG Tablet PO SCH (11:56)
[2018-03-04] MEDS: traZODone 50 MG Tablet PO SCH (20:42)
[2018-03-05] MEDS: Divalproex 250 MG DR Tablet PO SCH ×3 (02:42→17:45)
[2018-03-05] MEDS: Levothyroxine 50 MCG Tablet PO SCH (06:04)
[2018-03-05] MEDS: Ferrous Sulfate 325 MG Tablet PO SCH (10:11)
[2018-03-05] MEDS: Furosemide 20 MG Tablet PO SCH (10:11)
[2018-03-05] MEDS: Potassium Bicarbonate 25 MEQ Effervescent Tablet PO SCH (10:12)
--- NOTE | 2018-03-05 15:44 | P.PNIM ---
Subjective Interval history: Patient remained confused and impulsive. Physical Exam Vital signs: Vital Signs 03/04/18 16:00 03/04/18 20:00 03/05/18 00:00 Temperature 97 F L 97.8 F 97.6 F Pulse Rate 69 88 70 Respiratory Rate 18 16 16 Blood Pressure 161/67 H 119/78 128/58 L Pulse Oximetry 95 96 96 03/05/18 04:00 03/05/18 08:00 03/05/18 12:00 Temperature 97.1 F L 97.7 F 97.4 F L Pulse Rate 65 70 61 Respiratory Rate 16 21 20 Blood Pressure 111/55 L 114/59 L 121/58 L Pulse Oximetry 100 94 L 93 L Intake & Output 03/04/18 03/05/18 03/05/18 18:59 06:59 18:59 Weight 55.8 kg 54.6 kg Other: # Voids 3 # Incontinent Voids 1 Date of Last Bowel Movement 03/03/18 03/03/18 03/03/18 Narrative: GENERAL: NAD, elderly female NEURO: No focal neurological deficits. PSYCH: Confused and impulsive Results - Labs CBC & Chem 7: 02/22/18 13:35 02/22/18 13:35 Assessment and Plan - Plan 87-year-old female with end-stage dementia with behavioral disturbances. Danger to self and others. Fall Laceration -Laceration has been repaired -Continue pursuit for placement with case management -Patient holding with us until placement achieved -Continue home medications End-stage dementia with behavioral disturbances. - Will consult psychiatry. Her main issues are behavioral at this time. HTN CAD -Continue home medication Plavix, Lasix, Metoprolol -Stable BP Trend Hypothyroidism -Continue levothyroxine DVT prophylaxis SCDs Discharge Planning: Patient may need a locked psychiatric unit. Psychiatry consulted.
[2018-03-05] MEDS: traZODone 50 MG Tablet PO SCH (20:47)
[2018-03-06] MEDS: Divalproex 250 MG DR Tablet PO SCH ×4 (01:34→17:34)
[2018-03-06] MEDS: Levothyroxine 50 MCG Tablet PO SCH (05:45)
[2018-03-06] MEDS: Potassium Bicarbonate 25 MEQ Effervescent Tablet PO SCH (08:12)
[2018-03-06] MEDS: Furosemide 20 MG Tablet PO SCH (08:14)
[2018-03-06] MEDS: Ferrous Sulfate 325 MG Tablet PO SCH (08:14)
--- NOTE | 2018-03-06 15:09 | P.CONPSY ---
Provisional Diagnosis Admission Date: March 04, 2018 11:23 Centenary I.: Dementia with behavioral disturbance, Hx of Bipolar Centenary II.: Deferred Centenary III.: HTN, JEAN-PIERRE History of Present Illness Service: Medicine Primary Care Provider: UNKNOWN History of Present Illness: The patient is an 87 year-old woman, domiciled in a [facility], , with a psychiatric history of dementia with behavioral disturbances, bipolar disorder, known by the service, she was hospitalized under the care of Dr. Malagon in July 2017, medical history of hypertension, hypothyroidism and CAD who presented initially to this facility voluntarily for repeated falls. She was initially seen by nurse practitioner in the ER. She was admitted due to acute renal injury and lacerations. Apparently, upon discharge, her facility refused to take her back due to "psychiatric issues". According to the medical provider's note case management requested a psychiatric screen be completed. This patient is known to the psychiatric department at this facility with two previous admissions for dementia with behavioral issues. She has no other mental health history that I can ascertain. Upon examination, I find her with a 1:1 sitter in medical floor due to behavioral dysregulation and risk of fall. She has multiple bruises and injuries of various ages. She is grossly demented, oriented to self only. I assisted with placing her back on the stretcher in a safe position and while she appeared slightly frustrated, she was not physical or aggressive. I have gotten collateral information from her daughter Katie , , who reports that patient's behavior has been getting worse and worse with the days, this time she is not allowed to go back to [facility] and everything is more difficult to find placement for the patient due to her behavior. She also clarifies that the patient could not tolerate Seroquel due to the side effects. PPHx: Dementia with behavioral disturbances, previous psychiatric hospitalizations, she is on Depakote 250 mg twice daily PMHx: Hypothyroidism, hypertension, CAD Sustance Hx: No history of drugs abuse or alcohol Family Hx: She has a brother with bipolar disorder Social Hx: Patient was born and raised in [place], she has been living in [place] for 4 years, she is , her highest level of education is high school. [facility] - History History Provided By: Flight Deck Officer / EMT - Medical History Medical History: Medical History (Last Reviewed 03/05/18 @ 11:57 by Sabi Roach) Anxiety Dementia Pacemaker - Tobacco History Smoking Status: Unknown if ever smoked - Alcohol History How Often Do You Have a Drink Containing Alcohol: Unable to Obtain - Substance Use History Substance History: No History of Abuse - Immunization History Tetanus Immunization: Unsure Hx Influenza Vaccine This Season: No Medications and Allergies Active Medications: Active Medications Hydrocodone Bitart/Acetaminophen ([place] 5/325) 1 tab PO Q4H PRN PRN Reason: Pain, Moderate Last Admin: 03/06/18 13:31 Dose: 1 tab Al Hydroxide/Mg Hydroxide (Milk Of Magnesia Liq) 30 ml PO Q12H PRN PRN Reason: Mild Constipation Last Admin: 02/27/18 21:09 Dose: 30 ml Al Hydroxide/Mg Hydroxide (Milk Of Magnesia Liq) 5 ml PO DAILY PRN PRN Reason: Constipation Buspirone HCl (Buspar) 10 mg PO Q8HR [facility] Last Admin: 03/06/18 13:23 Dose: 10 mg Clopidogrel Bisulfate (Plavix) 75 mg PO DAILY [facility] Last Admin: 03/06/18 08:13 Dose: 75 mg Divalproex Sodium (Depakote Dr) 250 mg PO Q8H [facility] Last Admin: 03/06/18 12:30 Dose: Not Given Ferrous Sulfate (Ferosul) 325 mg PO DAILY [facility] Last Admin: 03/06/18 08:14 Dose: 325 mg Furosemide (Lasix) 20 mg PO DAILY [facility] Last Admin: 03/06/18 08:14 Dose: 20 mg Levothyroxine Sodium (Synthroid) 50 mcg PO DAILY@0600 [facility] Last Admin: 03/06/18 05:45 Dose: 50 mcg Metoprolol Succinate (Toprol Xl) 12.5 mg PO DAILY [facility] Last Admin: 03/06/18 08:13 Dose: 12.5 mg Miscellaneous (Pill Splitter) 1 each OTHER UNSCH [facility] Olanzapine (Zyprexa) 2.5 mg PO BID [facility] Olanzapine (Zyprexa Zydis Odt) 5 mg PO BID [facility] Potassium Bicarbonate (Effer-K) 25 meq PO DAILY [facility] Last Admin: 03/06/18 08:12 Dose: 25 meq Trazodone HCl (Desyrel) 50 mg PO HS [facility] Last Admin: 03/05/18 20:47 Dose: 50 mg Allergies Allergy/AdvReac Type Severity Reaction Status Date / Time quetiapine Allergy Intermediate Anxiety Verified 02/22/18 13:34 baclofen Allergy Unknown Lethargy Verified 02/22/18 13:34 Penicillins Allergy Unknown Rash Verified 02/22/18 13:34 Home Medications Medication Instructions Recorded Confirmed Type Robafen 100 mg PO Q6HR 02/22/18 02/22/18 History clopidogrel 75 mg PO DAILY 02/22/18 02/22/18 History ferrous sulfate 325 mg PO DAILY 02/22/18 02/22/18 History furosemide 20 mg PO DAILY 02/22/18 02/22/18 History hydrocodone-acetaminophen 1 tab PO Q4-6H PRN 02/22/18 02/22/18 History levothyroxine 50 mcg PO DAILY 02/22/18 02/22/18 History magnesium hydroxide [Milk of 5 ml PO DAILY PRN 02/22/18 02/22/18 History Magnesia] metoprolol succinate 12.5 mg PO DAILY 02/22/18 02/22/18 History potassium chloride 20 meq PO DAILY 02/22/18 02/22/18 History buspirone 10 mg PO Q8HR 02/24/18 02/24/18 History divalproex 250 mg PO BID 02/24/18 02/24/18 History temazepam 15 mg PO HS 02/24/18 02/24/18 History trazodone 100 mg PO HS 02/24/18 02/24/18 History Exam Vital signs: Vital Signs 03/05/18 16:00 03/05/18 20:00 03/06/18 00:00 Temperature 97.5 F L 98 F 98 F Pulse Rate 70 79 68 Respiratory Rate 20 18 18 Blood Pressure 140/61 140/74 122/59 L Pulse Oximetry 97 98 100 03/06/18 04:00 03/06/18 08:00 03/06/18 12:00 Temperature 98 F 97.6 F 97.6 F Pulse Rate 73 60 69 Respiratory Rate 18 17 17 Blood Pressure 137/72 116/57 L 97/60 L Pulse Oximetry 98 98 98 Intake & Output 03/05/18 03/06/18 03/06/18 18:59 06:59 18:59 Intake Total 550 / 550 Balance 550 / 550 Weight 55.3 kg Intake: Oral 550 / 550 Other: # Voids 3 Date of Last Bowel Movement 03/03/18 03/03/1803/03/18 # Bowel Movements 0 Mental Status Examination Appearance: Appropriate, Disheveled Consciousness: Alert Orientation: Person Motor Activity: Other (sitting on stretcher) Language: Word salad Fund of Knowledge: Poor Attention and Concentration: Inadequate Memory: Impaired Mood: Appropriate, Good Affect: Appropriate, Euthymic Thought Process & Associations: Disorganized Thought Content: Other (unable to assess due to gross dementia) Hallucination Type: None Delusion Type: None Insight: Poor Judgment: Poor Assessment and Plan - Plan Plan: Estimated LOS: [] days Justification for Continued Inpatient Stay: The patient presents severely demented, disoriented in person, disoriented in time and place, quite disorganized and tangential, unable to provide any significant information for the psychiatric assessment given her level of cognitive impairment. The patient is a little bit agitated, in 1-1 due to her risk of fall. As per daughter patient has been decompensated behaviorally, with increased aggressive behavior and agitation. Poor response to psychotropics. This is a patient with psychiatric history of dementia, behavioral dysregulation, psychiatric admissions in the past. Patient might benefit of psychiatric admission for stabilization and safety. Agree with Depakote 250 mg twice daily. I will order Depakote levels. If Depakote levels are low, will increase Depakote to 500 mg twice daily. QTc interval is 406. I will start olanzapine 2.5 mg twice daily to help with poor impulse control. Avoid benzodiazepines, narcotic and anticholinergics as much as possible to avoid worsening of cognition and delirium. I will follow-up.
--- NOTE | 2018-03-06 16:14 | P.PNIM ---
Subjective Interval history: Patient is very disorganized. I discussed with sitter at bedside. Still very impulsive and agitated. Physical Exam Vital signs: Vital Signs 03/05/18 20:00 03/06/18 00:00 03/06/18 04:00 Temperature 98 F 98 F 98 F Pulse Rate 79 68 73 Respiratory Rate 18 18 18 Blood Pressure 140/74 122/59 L 137/72 Pulse Oximetry 98 100 98 03/06/18 08:00 03/06/18 12:00 Temperature 97.6 F 97.6 F Pulse Rate 60 69 Respiratory Rate 17 17 Blood Pressure 116/57 L 97/60 L Pulse Oximetry 98 98 Intake & Output 03/05/18 03/06/18 03/06/18 18:59 06:59 18:59 Intake Total 550 / 550 Balance 550 / 550 Weight 55.3 kg Intake: Oral 550 / 550 Other: # Voids 3 Date of Last Bowel Movement 03/03/18 03/03/18 03/03/18 # Bowel Movements 0 Narrative: GENERAL: NAD, elderly female NEURO: No focal neurological deficits. PSYCH: Confused and impulsive Results - Labs CBC & Chem 7: 02/22/18 13:35 02/22/18 13:35 Assessment and Plan - Plan 87-year-old female with end-stage dementia with behavioral disturbances. Danger to self and others. Fall Laceration -Laceration has been repaired -Continue pursuit for placement with case management -Patient holding with us until placement achieved -Continue home medications End-stage dementia with behavioral disturbances. -Appreciate psychiatry input. Depakote being titrated. Olanzapine to be started per psychiatry. May benefit from psychiatric admission. Will discuss with psychiatry. HTN CAD -Continue home medication Plavix, Lasix, Metoprolol -Stable BP Trend Hypothyroidism -Continue levothyroxine DVT prophylaxis SCDs Discharge Planning: Patient may need a locked psychiatric unit. Psychiatry consulted.
[2018-03-06] MEDS: OLANZapine 2.5 MG Tablet PO SCH ×2 (17:35→22:26)
[2018-03-06] MEDS: traZODone 50 MG Tablet PO SCH (22:25)
[2018-03-07] MEDS: Divalproex 250 MG DR Tablet PO SCH ×2 (03:17→09:54)
[2018-03-07] MEDS: Levothyroxine 50 MCG Tablet PO SCH (07:03)
[2018-03-07] MEDS: Furosemide 20 MG Tablet PO SCH (09:53)
[2018-03-07] MEDS: Potassium Bicarbonate 25 MEQ Effervescent Tablet PO SCH (09:53)
[2018-03-07] MEDS: OLANZapine 2.5 MG Tablet PO SCH (09:54)
[2018-03-07] MEDS: Ferrous Sulfate 325 MG Tablet PO SCH (09:54)
[2018-03-07 12:41] VITALS: RESP 16
--- NOTE | 2018-03-07 14:46 | P.DS ---
Date of admission: 03/04/18 11:23 Primary care physician: UNKNOWN Brief History from admission: Patient sent to the emergency room from a nursing facility for reported falls. She was cleared from the ED for discharge. However at the facility refused to take her back due to "psychiatric issues". There was reports that she was aggressive and hitting the staff there. Initially admitted as outpatient and subsequently admitted for observation. Patient update on day of discharge: Patient remained confused and impulsive. DS: Diagnosis - Discharge Diagnosis (1) Dementia Status: Acute (2) Major neurocognitive disorder due to Alzheimer's disease, probable, with behavioral disturbance Status: Acute DS: Summary Hospital Course: 87-year-old female with end-stage dementia with behavioral disturbances. Danger to self and others. [facility] from a [facility] but the nursing facility refused to take the patient back. Fall Laceration -Laceration has been repaired -Continue home medications -Patient needs supervision as she is at risk of falling. End-stage dementia with behavioral disturbances. -Appreciate psychiatry input. Depakote being titrated. Olanzapine started per psychiatry. The patient remained disorganized, severely demented and at times can be aggressive. Patient is Enriquez acted. - I agree with psychiatry assessment, the patient is discharged to the inpatient psychiatric unit for further attempt at stabilization. HTN CAD -Continue home medication Plavix, Lasix, Metoprolol -Stable BP Trend Hypothyroidism -Continue levothyroxine Patient is medically cleared for discharge to psychiatry. - Time Spent with Patient Total time spent providing and/or coordinating discharge services: Less than 30 minutes - Quality: VTE Deep Vein Thrombosis/Pulmonary Embolism Present on Admission: No Exam Vital signs: Vital Signs 03/06/18 16:00 03/06/18 17:26 03/06/18 20:00 Temperature 98.2 F 97.0 F L Pulse Rate 62 61 Respiratory Rate 17 18 18 Blood Pressure 125/60 156/60 H Pulse Oximetry 95 100 03/07/18 00:00 03/07/18 08:00 03/07/18 12:00 Temperature 97.4 F L 97.3 F L 98.1 F Pulse Rate 61 71 62 Respiratory Rate 18 17 16 Blood Pressure 119/56 L 114/58 L 127/57 L Pulse Oximetry 98 92 L 98 Intake & Output 03/06/18 03/07/18 03/07/18 18:59 06:59 18:59 Intake Total 441 / 441 Output Total 220 / 220 Balance 221 / 221 Weight 44.9 kg Intake: Oral 441 / 441 Output: Urine / 220 Other: # Incontinent Voids 1 Date of Last Bowel Movement 03/03/18 03/07/18 03/07/18 # Bowel Movements 0 Narrative: GENERAL: Elderly female. Confused and disoriented. Severe dementia. CARDIOVASCULAR: Normal rate and regular rhythm without murmurs, gallops, or rubs. NEURO: Alert & Oriented to self only. Moves all ext x4 PSYCH: Demented, confused Results Procedures completed during hospitalization: None - Impressions ITS Impressions Chest X-Ray 02/22/18 13:33 CONCLUSION: 1. No acute abnormality or significant interval change. Head CT 02/22/18 13:33 CONCLUSION: 1. Senescent changes without acute intracranial abnormality. 2. Anterolateral right scalp hematoma. . Pelvis X-Ray 02/22/18 13:35 CONCLUSION: 1. No acute fracture or dislocation. Discharge Plan - Discharge Disposition Patient Disposition: 67 Disc To [facility] - Discharge Condition Condition: Stable - Discharge Order Discharge Orders: Discharge Order (Routine); Ordered 03/07/18 Ordered By: Nguyễn Pierce Hospitalist Clear for Discharge (Routine); Ordered 02/24/18 Ordered By: Nguyễn Pierce - Discharge Details Anticipated Discharge Date: 02/27/18 Discharge Comment: Medically cleared for discharge to psychiatry. - Physicians Team Primary Care Provider: UNKNOWN, Attending Provider: Vlad Baxter Other Providers: Lisandro Mancuso, PhD ; [facility] ; Mason Lala MD
[2018-03-07 17:13] VITALS: BP 132/62; PULSE 73; TEMP 98.7; O2SAT 92
== END 2018-03-07 18:00 ==
LOC: NEPE 13:08 → NEPD 02-24 09:59 → NEPHCDU 02-24 09:59 → HBDO 02-24 13:29 → NEDA 02-24 13:43 → HBDO 02-24 13:56 → NEPHCDU 02-24 13:57 → HBDO 02-25 15:54 → NEPHCDU 02-27 12:32 → RMSDCBED 03-03 08:16 → NEPHCDU 03-04 09:46 → N05 03-04 15:47
PROVIDERS: ADMIT Family Medicine; ATTEND Family Medicine

== ENCOUNTER 2018-03-07 17:44 | Inpatient (IN) ==
[2018-03-07] MEDS ORDERED: Bisacodyl 10 MG Supp RECTAL PRN (19:30)
[2018-03-07] MEDS ORDERED: Aluminum/Magnesium/Simethacone Susp 30 ML UDC PO PRN (19:30)
[2018-03-07] MEDS: Senna/Docusate Sodium 8.6/50 MG Tablet PO SCH (21:43)
[2018-03-07] MEDS: Divalproex 250 MG DR Tablet PO SCH (21:44)
[2018-03-08] MEDS: Divalproex 250 MG DR Tablet PO SCH ×2 (05:25→05:57)
[2018-03-08] MEDS ORDERED: Furosemide 20 MG Tablet PO SCH (09:00)
[2018-03-08] MEDS: Ferrous Sulfate 325 MG Tablet PO SCH (10:13)
[2018-03-08] MEDS: Senna/Docusate Sodium 8.6/50 MG Tablet PO SCH ×2 (10:14→22:57)
[2018-03-08 10:47] LABS: Calcium 8.2 mg/dL (8.5-10.1); Carbon Dioxide 24.8 meq/L (21.0-32.0)
[2018-03-08 10:49] LABS: Chol/HDL Ratio 2.49 Ratio
[2018-03-08] MEDS ORDERED: Aluminum/Magnesium/Simethacone Susp 30 ML UDC PO PRN (11:29)
--- NOTE | 2018-03-08 11:44 | P.HPPSY ---
Provisional Diagnosis Admission Date: March 07, 2018 18:05 [place] I.: Esquivel disease with late onset, dementia with behavioral disturbances Competence Certification of Person's Competence To Provide Express and Informed Consent I have personally examined Argentina Mina, a person being served at [facility] on, March 08, 2018 1142. Express and informed consent means consent voluntarily given in writing, by a competent person, after sufficient explanation and disclosure of the subject matter involved to enable the person to make a knowing and willful decision without any element of force, fraud, deceit, duress, or other form of constraint or coercion. This person is 18 years of age or older, is not now known to be incompetent to consent to treatment with a guardian advocate, and does not have a health care surrogate or proxy currently making medical treatment decisions. I have found this person to be one of the following: [] Competent to provide express and informed consent, as defined above, for voluntary admission to this facility and is competent to provide express and informed consent for treatment. He/she has the consistent capacity to make well reasoned, willful, and knowing decisions concerning his or her medical or mental health treatment. The person fully and consistently understands the purpose of the admission for examination/placement and is fully capable of personally exercising all rights assured [place]] Incompetent to provide express and informed consent to voluntary admission, and this is incompetent to provide express and informed consent to treatment. The person must be transferred to involuntary status and a petition for a guardian advocate filed with the Circuit Court. [] Refusing to provide express and informed consent to voluntary admission but is competent to provide express and informed consent for treatment. The person must be discharged or transferred to involuntary status. Form shall be completed within 24 hours of a person's arrival at the receiving facility and filed in the clinical record of each person: 1. Admitted on a voluntary basis 2. Permitted to provide express and informed consent to his/her own treatment 3. Allowed to transfer from involuntary to voluntary status 4. Prior to permitting a person to consent to his or her own treatment after having been previously found incompetent to consent to treatment. History of Present Illness Capacity: Lacks capacity History of Present Illness: Patient is an 87-year-old white female was initially admitted to [facility] on about 02/22 with history of falls history of cardiac issues and thyroid issues. She is also caring a diagnosis of dementia with agitation has had difficulty with placements to the point where she has been refused to return to her prior placement patient has been on the clinical decision unit since that time has been seen by her nurse practitioner early in the state then also seen with a psychiatric consultation by Dr. Araya and 03/06 he recommended restarting her Depakote. The addition also of Zyprexa small dose to help with her behaviors he did discuss this with her daughter Katie at that time. Patient has been medically cleared. Has not been transferred to the [facility] units under [facility] act was initiated by Dr. Snowden on 03/07. Patient seen by me today with RN in the dayroom. She is slight somewhat disheveled elderly white female healing laceration noted over right lateral eyebrow multiple bruises noted over both upper arms. Diffusely confused somewhat irritable did not remember me from prior contacts or prior hospitalizations. No other significant information can be gathered from her. We did talk to patient's daughter whose name is Katie at [phone] verify patient severe chronic long-standing demented issues but also other issues related to her various medical conditions and inability to find appropriate medication management to give her a better chance at being successful and placement. She agrees to the admission to the psychiatric unit To be healthcare surrogate/guardian advocate will continue her on her Depakote at 500 mg twice daily we will add olanzapine 2.5 mg twice daily we will allow as needed Atarax and Benadryl at bedtime. Placement may become problematic though patient's daughter states she has been working diligently attempting to find an appropriate placement also - Inpatient Certification I certify that the inpatient services were ordered in accordance with Medicare regulations governing the order. This includes certification that hospital inpatient services are reasonable and necessary and in the case of services not specified as inpatient-only under 42 CFR 419.22(n), that they are appropriately provided as inpatient services in accordance to with the 2-midnight benchmark under 43 CFR 412.3(e) I certify that inpatient psychiatric hospital services are medically necessary. Evaluation and treatment and/or diagnostic testing are expected to improve the patient's condition. The patient needs on a daily basis, active treatment furnished directly by or requiring the supervision of inpatient psychiatric facility personnel. Estimated Total Length of Stay (Days): 7 Plans for Post Hospital Care: Not yet determined Review of Systems Please see MedSurg assessments PMFSH - History History Provided By: Family Member, Sandwich Board Carrier / EMT - Medical History Medical History: Medical History (Last Reviewed 03/08/18 @ 05:27 by Rima Bill LPN) Anxiety Dementia Pacemaker - Tobacco History Smoking Status: Unknown if ever smoked - Alcohol History How Often Do You Have a Drink Containing Alcohol: Unable to Obtain - Substance Use History Substance History: Unable to Obtain Quality Measures - Psychiatric History Psychological trauma history: Unknown at this time the patient is a high risk fall potential Violence risk to others in the last 6 months: Patient has aggressive behavior history of placements Violence risk to self in the last 6 months: Low though the patient is a high fall risk - Substance Abuse History Drug or alcohol use in the past 12 months: Denies - Patient Strengths Patient's strengths (minimum of 2): Patient verbal able access healthcare has supportive family Medications and Allergies Active Medications: Active Medications Acetaminophen (Tylenol) 650 mg PO Q4H PRN PRN Reason: Pain 1-5 or Temp >101F Al Hydrox/Mg Hydrox/Simethicone (Mag-Al Plus Susp Liq) 30 ml PO Q6H PRN PRN Reason: DYSPEPSIA Al Hydrox/Mg Hydrox/Simethicone (Mag-Al Plus Susp Liq) 30 ml PO Q6H PRN PRN Reason: DYSPEPSIA Al Hydroxide/Mg Hydroxide (Milk Of Magnesia Liq) 30 ml PO Q12H PRN PRN Reason: Mild Constipation Al Hydroxide/Mg Hydroxide (Milk Of Magnesia Liq) 30 ml PO Q12H PRN PRN Reason: Mild Constipation Bisacodyl (Dulcolax Supp) 10 mg RECTAL DAILY PRN PRN Reason: SEVERE CONSITIPATION Buspirone HCl (Buspar) 10 mg PO Q8HR [facility] Last Admin: 03/08/18 05:57 Dose: Not Given Clopidogrel Bisulfate (Plavix) 75 mg PO DAILY [facility] Last Admin: 03/08/18 10:13 Dose: 75 mg Diphenhydramine HCl (Benadryl) 50 mg PO HS PRN PRN Reason: INSOMNIA Divalproex Sodium (Depakote Dr) 500 mg PO BID [facility] Ferrous Sulfate (Ferosul) 325 mg PO DAILY [facility] Last Admin: 03/08/18 10:13 Dose: 325 mg Furosemide (Lasix) 20 mg PO DAILY [facility] Last Admin: 03/08/18 10:13 Dose: 20 mg Hydroxyzine HCl (Atarax) 50 mg PO Q6H PRN PRN Reason: ANXIETY Lactulose (Lactulose Liq) 30 ml PO DAILY PRN PRN Reason: SEVERE CONSITIPATION Non-Formulary Medication (Levothyroxine [Levothyroxine]) 50 mcg PO DAILY [facility] Olanzapine (Zyprexa) 2.5 mg PO BID [facility] Olanzapine (Zyprexa) 2.5 mg PO BID [facility] Potassium Chloride (Kcl Powder) 20 meq PO DAILY [facility] Senna/Docusate Sodium (Michelle-Colace) 1 tab PO BID [facility] Last Admin: 03/08/18 10:14 Dose: Not Given Sennosides (Senokot) 17.2 mg PO Q12H PRN PRN Reason: Moderate Constipation Allergies Allergy/AdvReac Type Severity Reaction Status Date / Time quetiapine Allergy Intermediate Anxiety Verified 02/22/18 13:34 baclofen Allergy Unknown Lethargy Verified 02/22/18 13:34 Penicillins Allergy Unknown Rash Verified 02/22/18 13:34 Home Medications Medication Instructions Recorded Confirmed Type Robafen 100 mg PO Q6HR 02/22/18 02/22/18 History clopidogrel 75 mg PO DAILY 02/22/18 02/22/18 History ferrous sulfate 325 mg PO DAILY 02/22/18 02/22/18 History furosemide 20 mg PO DAILY 02/22/18 02/22/18 History hydrocodone-acetaminophen 1 tab PO Q4-6H PRN 02/22/18 02/22/18 History levothyroxine 50 mcg PO DAILY 02/22/18 02/22/18 History magnesium hydroxide [Milk of 5 ml PO DAILY PRN 02/22/18 02/22/18 History Magnesia] metoprolol succinate 12.5 mg PO DAILY 02/22/18 02/22/18 History potassium chloride 20 meq PO DAILY 02/22/18 02/22/18 History buspirone 10 mg PO Q8HR 02/24/18 02/24/18 History temazepam 15 mg PO HS 02/24/18 02/24/18 History trazodone 100 mg PO HS 02/24/18 02/24/18 History Results - Labs CBC & Chem 7: 03/08/18 09:30 Labs: Laboratory Results - last 24 hr 03/08/18 09:30 Sodium 133 L Potassium 5.0 Chloride 97 L Carbon Dioxide 24.8 Anion Gap 11 BUN 13 Creatinine 0.66 Estimated GFR 85 L Random Glucose 65 L Calcium 8.2 L Triglycerides 71 Cholesterol 152 LDL Cholesterol, Calc 77 HDL Cholesterol 61.0 H Cholesterol/HDL Ratio 2.49 Exam Vital signs: Vital Signs 03/07/18 18:22 03/08/18 06:27 Temperature 97.8 F 98.1 F Pulse Rate 91 H 66 Respiratory Rate 18 20 Blood Pressure 109/61 103/57 L Pulse Oximetry 96 94 L Intake & Output 03/07/18 03/08/18 03/08/18 18:59 06:59 18:59 Weight 54.998 kg Other: Weight On Admission 54.998 kg Narrative: Patient sitting in Manisha chair in day room in no acute distress, patient no respiratory distress, does not complain of chest pain or abdominal pain. Mental Status Examination Appearance: Appropriate, Disheveled (Mildly) Consciousness: Alert Orientation: Person Motor Activity: Other (The) Speech: Hesitant Language: Other Fund of Knowledge: Poor Attention and Concentration: Easily distracted Memory: Impaired Mood: Irritable Affect: Other (Slight increased range and intensity) Thought Process & Associations: Disorganized Thought Content: Other (Disorganized) Hallucination Type: None Delusion Type: None Suicidal Ideation: No Suicidal Plan: No Suicidal Intention: No Homicidal Ideation: No Homicidal Plan: No Homicidal Intention: No Insight: Poor Judgment: Poor Assessment and Plan - Assessment (1) Alzheimer's disease with late onset Code(s): G30.1 - Alzheimer's disease with late onset; F02.80 - Dementia in other diseases classified elsewhere without behavioral disturbance Status: Acute (2) Dementia in other diseases classified elsewhere with behavioral disturbance Code(s): F02.81 - Dementia in other diseases classified elsewhere with behavioral disturbance Status: Acute - Plan Plan: Estimated LOS: [7] days Time patient does meet criteria for involuntary psychiatric hospitalization of the Enriquez act I will do first opinion request second opinion. I feel she does not have capacity thus I will ask for health care surrogate and guardian advocate. We will the hospitalist continue to consult will us to have PT and OT consult will us. We will continue her Depakote and her olanzapine. Placement may become quite problematic Justification for Continued Inpatient Stay: At this time patient would decompensate a place to a lower level of care Discharge Planning: To be determined placement may become difficult Request Healthcare Surrogate/Guardian Advocate?: Yes
[2018-03-08 13:20] LABS: Hemoglobin A1c 4.9 % (4.3-6.0)
[2018-03-08] MEDS: OLANZapine 2.5 MG Tablet PO SCH ×2 (14:49→22:58)
[2018-03-08] MEDS: Divalproex 500 MG DR Tablet PO SCH ×2 (14:52→21:00)
[2018-03-08] MEDS ORDERED: LORazepam 1 MG Tablet PO ONE (15:00)
[2018-03-08] MEDS ORDERED: Dextrose 50% in Water 50 ML Vial IV.PUSH PRN (15:17)
--- NOTE | 2018-03-08 15:31 | P.CON ---
History of Present Illness Service: Hospitalist Consult date: 03/08/18 Requesting Physician: Carlos Hu Reason for Consult: Assist with medical management Primary Care Provider: UNKNOWN Chief Complaint: "My back hurts" History of Present Illness: This is a 87-year-old female with past medical history significant for end- stage dementia, hypertension, coronary artery disease and hypothyroidism who was recently admitted for recurrent falls the most recent of which resulted in a laceration to the right side of her head. Once patient was medically cleared for discharge, facility where she was previously residing refused to take her back due to increased agitation and aggressiveness. Patient was seen in consultation by psychiatry and has since been admitted to the inpatient psychiatric unit. Hospitalist services have been consulted to assist with ongoing medical management. Patient is a very poor historian. Unable to obtain any reliable history from the patient. She is very irritable and is demanding to be taken back to her room and placed in bed. She does repetitively say that her back is killing her along the entire length of spine. Patient witnessed going from the Manisha chair to the bed with quite a bit of difficulty. Review of Systems unobtainable due to mental status (Patient refusing to answer ROS questions) PMFSH - History History Provided By: Family Member, Energy And Sustainability Manager / EMT - Medical History Medical History: Medical History (Last Updated 03/08/18 @ 15:25 by Carolann Lorenzo) Pacemaker (Acute) Hypothyroidism Anxiety Dementia - Family History Family History: Family History (Last Updated 03/08/18 @ 15:25 by Carolann Lorenzo) Other Family history unobtainable - Tobacco History Smoking Status: Unknown if ever smoked - Alcohol History How Often Do You Have a Drink Containing Alcohol: Unable to Obtain - Substance Use History Substance History: Unable to Obtain Medications and Allergies Active Medications: Active Medications Acetaminophen (Tylenol) 650 mg PO Q4H PRN PRN Reason: Pain 1-5 or Temp >101F Al Hydrox/Mg Hydrox/Simethicone (Mag-Al Plus Susp Liq) 30 ml PO Q6H PRN PRN Reason: DYSPEPSIA Al Hydrox/Mg Hydrox/Simethicone (Mag-Al Plus Susp Liq) 30 ml PO Q6H PRN PRN Reason: DYSPEPSIA Al Hydroxide/Mg Hydroxide (Milk Of Magnesia Liq) 30 ml PO Q12H PRN PRN Reason: Mild Constipation Al Hydroxide/Mg Hydroxide (Milk Of Magnesia Liq) 30 ml PO Q12H PRN PRN Reason: Mild Constipation Bisacodyl (Dulcolax Supp) 10 mg RECTAL DAILY PRN PRN Reason: SEVERE CONSITIPATION Buspirone HCl (Buspar) 10 mg PO Q8HR [facility] Last Admin: 03/08/18 14:53 Dose: Not Given Clopidogrel Bisulfate (Plavix) 75 mg PO DAILY [facility] Last Admin: 03/08/18 10:13 Dose: 75 mg Diphenhydramine HCl (Benadryl) 50 mg PO HS PRN PRN Reason: INSOMNIA Divalproex Sodium (Depakote Dr) 500 mg PO BID [facility] Last Admin: 03/08/18 14:52 Dose: Not Given Ferrous Sulfate (Ferosul) 325 mg PO DAILY [facility] Last Admin: 03/08/18 10:13 Dose: 325 mg Furosemide (Lasix) 20 mg PO DAILY [facility] Last Admin: 03/08/18 10:13 Dose: 20 mg Hydroxyzine HCl (Atarax) 50 mg PO Q6H PRN PRN Reason: ANXIETY Last Admin: 03/08/18 14:49 Dose: 50 mg Lactulose (Lactulose Liq) 30 ml PO DAILY PRN PRN Reason: SEVERE CONSITIPATION Levothyroxine Sodium (Synthroid) 50 mcg PO DAILY@0600 [facility] Lorazepam (Ativan Inj) 1 mg IM UNSCH X1 PRN PRN Reason: IF PATIENT REFUSES PO ATIVAN Olanzapine (Zyprexa) 2.5 mg PO BID [facility] Last Admin: 03/08/18 14:49 Dose: 2.5 mg Potassium Chloride (Kcl) 20 meq PO DAILY [facility] Senna/Docusate Sodium (Michelle-Colace) 1 tab PO BID [facility] Last Admin: 03/08/18 10:14 Dose: Not Given Sennosides (Senokot) 17.2 mg PO Q12H PRN PRN Reason: Moderate Constipation Allergies Allergy/AdvReac Type Severity Reaction Status Date / Time quetiapine Allergy Intermediate Anxiety Verified 02/22/18 13:34 baclofen Allergy Unknown Lethargy Verified 02/22/18 13:34 Penicillins Allergy Unknown Rash Verified 02/22/18 13:34 Home Medications Medication Instructions Recorded Confirmed Type Robafen 100 mg PO Q6HR 02/22/18 02/22/18 History clopidogrel 75 mg PO DAILY 02/22/18 02/22/18 History ferrous sulfate 325 mg PO DAILY 02/22/18 02/22/18 History furosemide 20 mg PO DAILY 02/22/18 02/22/18 History hydrocodone-acetaminophen 1 tab PO Q4-6H PRN 02/22/18 02/22/18 History levothyroxine 50 mcg PO DAILY 02/22/18 02/22/18 History magnesium hydroxide [Milk of 5 ml PO DAILY PRN 02/22/18 02/22/18 History Magnesia] metoprolol succinate 12.5 mg PO DAILY 02/22/18 02/22/18 History potassium chloride 20 meq PO DAILY 02/22/18 02/22/18 History buspirone 10 mg PO Q8HR 02/24/18 02/24/18 History temazepam 15 mg PO HS 02/24/18 02/24/18 History trazodone 100 mg PO HS 02/24/18 02/24/18 History Physical Exam Vital signs: Vital Signs 03/07/18 18:22 03/08/18 06:27 Temperature 97.8 F 98.1 F Pulse Rate 91 H 66 Respiratory Rate 18 20 Blood Pressure 109/61 103/57 L Pulse Oximetry 96 94 L Intake & Output 03/07/18 03/08/18 03/08/18 18:59 06:59 18:59 Weight 54.998 kg Other: Weight On Admission 54.998 kg Narrative: GENERAL: Elderly, thin, chronically ill-appearing elderly female, in no acute distress. Awake and alert. Poorly cooperative with exam. SKIN: Warm and dry. + Large area of ecchymosis left side of face HEAD: Normocephalic. + Laceration the right side of head, healing well. EYES: Pupils equal and round. No scleral icterus. No injection or drainage. ENT: No nasal bleeding or discharge. Mucous membranes pink and moist. NECK: Trachea midline. CARDIOVASCULAR: unable to assess due to patients refusal RESPIRATORY: No accessory muscle use. GASTROINTESTINAL: Abdomen soft, non-tender, nondistended. MUSCULOSKELETAL: Extremities without clubbing, cyanosis, or edema. No obvious deformities. NEUROLOGICAL: Awake and alert. Oriented to self only. No obvious cranial nerve deficits. Unable to assess motor function. Able to move all extremities spontaneously. Normal speech. PSYCHIATRIC: Irritable; insight and judgment poor. Assessment and Plan - Plan 87-year-old female with end-stage dementia status post recurrent falls most recent of which resulted a laceration the right side of the head admitted to inpatient psychiatric unit. Hospitalist services consulted to assist with ongoing medical management. End-stage dementia with behavioral disturbances -Management per psychiatric team Recurrent falls Laceration -Laceration right side of head has been repaired, appears to be healing well -PT/OT eval/tx -fall precautions Severe back pain Hx of T12 compression fracture Vit D level 43.4 07/21/17 Patient is complaining of back pain extending from her neck all the way down her buttocks -We will obtain imaging to rule out possible fracture secondary to recurrent falls HTN, now hypotensive ? Symptomatic orthostatic hypotension resulting in recurrent falls CAD Atrial fibrillation, rate controlled -Obtain orthostatic BP measurements -Hold Lasix for now -Continue on metoprolol 12.5 mg daily with hold parameters Dysphagia of solid foods -puree diet for now -Speech therapy consult for swallow evaluation Elevated potassium -K high normal at 5.0 -Hold oral potassium for now Hyponatremia, mild -Fluid restriction -Monitor sodium level Hypoglycemia BS 65 -Accu-Cheks -Hypoglycemic protocol -Consult dietitian -Add Ensure supplements 3 times daily with meals Hypothyroidism -Continue levothyroxine -check TSH level COPD, not in acute exacerbation -monitor respiratory status -Duonebs as needed DVT prophylaxis -patient is ambulatory Thank you very kindly for this consultation. We will continue to follow along with you. Code Status: FULL Discussed Condition With: patient, nursing staff, Dr. Silverio
[2018-03-08] MEDS ORDERED: OLANZapine 2.5 MG Tablet PO SCH (21:00)
[2018-03-09] MEDS: Acetaminophen 325 MG Tablet PO PRN ×2 (01:11→20:48)
[2018-03-09] MEDS ORDERED: Haloperidol Inj 5 MG/ML Ampul IM ONE ×2 (02:45→23:45)
[2018-03-09] MEDS: Levothyroxine 50 MCG Tablet PO SCH (07:49)
[2018-03-09 08:41] LABS: Anion Gap 8 meq/L (5-15); Blood Urea Nitrogen 15 mg/dL (7-18); Calcium 8.1 mg/dL (8.5-10.1); Carbon Dioxide 27.2 meq/L (21.0-32.0); Chloride 97 meq/L (98-107); Glomerular Filtration Rate Greater Than 89 mL/min (>89); Glucose,Random 87 mg/dL (74-106); Potassium 4.2 meq/L (3.5-5.1); Sodium 132 meq/L (136-145)
[2018-03-09] MEDS ORDERED: Potassium Chloride 10 MEQ ER Capsule PO SCH (09:00)
[2018-03-09] MEDS: Divalproex 500 MG DR Tablet PO SCH (09:43)
[2018-03-09] MEDS: Ferrous Sulfate 325 MG Tablet PO SCH (09:43)
[2018-03-09] MEDS: Senna/Docusate Sodium 8.6/50 MG Tablet PO SCH ×2 (09:44→21:57)
[2018-03-09] MEDS: OLANZapine 2.5 MG Tablet PO SCH ×2 (09:44→21:57)
--- NOTE | 2018-03-09 12:07 | P.PNPSY ---
Subjective Remarks: This is a request for second opinion. Admission note was reviewed and I agree with the history. Patient was seen and case was discussed with nursing. Patient is alert and oriented 1. She is very confused and responding to internal stimuli. The medical team continues to follow her. Nursing was advised to hold Zyprexa if blood pressure is low systolic 100 or diastolic 70. Mental Status Examination Appearance: Appropriate, Disheveled (Mildly) Consciousness: Alert Orientation: Person Motor Activity: Other (The) Speech: Hesitant, Slow Language: Other Fund of Knowledge: Poor Attention and Concentration: Easily distracted Memory: Impaired Mood: Irritable Affect: Other (Slight increased range and intensity) Thought Process & Associations: Disorganized Thought Content: Other (Disorganized) Hallucination Type: None Delusion Type: None Suicidal Ideation: No Suicidal Plan: No Suicidal Intention: No Homicidal Ideation: No Homicidal Plan: No Homicidal Intention: No Insight: Poor Judgment: Poor Assessment and Plan - Assessment (1) Alzheimer's disease with late onset Code(s): G30.1 - Alzheimer's disease with late onset; F02.80 - Dementia in other diseases classified elsewhere without behavioral disturbance Status: Acute (2) Dementia in other diseases classified elsewhere with behavioral disturbance Code(s): F02.81 - Dementia in other diseases classified elsewhere with behavioral disturbance Status: Acute - Plan Plan: Hold Zyprexa if blood pressure is low. Vitals to 6 hours. I agree with the first opinion to continue petition. Criteria include dementia and agitated behavior Justification for Continued Inpatient Stay: Patient would decompensate in a less restrictive setting Request Healthcare Surrogate/Guardian Advocate?: Yes
--- NOTE | 2018-03-09 14:53 | P.DIET ---
Nutritional Evaluation Type of nutrition evaluation: initial Nutrition consult regarding: Diet Evaluation Nutrition screening: Poor [place] [facility] [place] [facility] [place] Subjective Subjective Comments: Pt is known to me from previous admissions here. Objective - Diagnosis Dementia w/Behacior Disturbances - Objective [place] body weight: 50 kg % IBW: 110 Body Weight Used for Calculations: Actual (55kg) Energy Needs - Lower Range (kCal/kg): 25 Energy Needs - Upper Range (kCal/kg): 30 Lower Limit kCal/kg (kCals): 1,375 Upper Limit kCal/kg (kCals): 1,650 Lower Limit Protein Factor (Grams per Kg): 1.1 Upper Limit Protein Factor (Grams per Kg): 1.4 Lower Protein Needs (Protein): 61 Upper Protein Needs (Protein): 77 Fluid Factor (ml/kg): 30 Estimated Fluid Needs (ml): 1,650 Dietitian Reviewed in Medical Record: Current diet, Curent medications, Intake & Output, Labs, Medical history Diet Order: Cardiac w/ Ensure TID Objective Comments: PMH Includes: end-stage Dementia, HTN, CAD, hypothyroidism A1C 4.9 Meds include: Bev Will, Lasix, Atarax, Synthroid, Toprol XL Feeding - Current PO Supplement Current Supplement: Ensure Original Current Frequency of Supplement: Three times a day Current kCals Provided by Supplement: 250 Current Protein Provided by Supplement: 9 Assessment Assessment: Pt is at nutritional risk r/t poor po intake. ST consult is pending. Agree w/ Ensure TID. Previously pt preferred milk, pudding, yogurt-will send these also. Rec No diet modification other than No Salt Packet on Tray and ST Recs for texture to allow for pt to receive increased menu choices. Labs reviewed. Dietitian will follow. Recommendations: 1. Monitor ST Recs 2. Agree w/Ensure TID 3. Previously pt preferred milk, pudding, yogurt-send w/meals 4. Rec No diet modification other than No Salt Packet on Tray and ST Recs for texture to allow for pt to receive increased menu choices 5. Dietitian will follow Dietitian to Monitor: Lab values, Supplement acceptance, Intake & Output, Diet tolerance, Weight change, PO Intake, Swallow recommendations, Medical course
--- NOTE | 2018-03-09 16:11 | P.PN ---
Subjective Interval history: Follow up on patient with end stage dementia, back pain, CAD. Patient seen and examined. Patient is lethargic. Poor historian. Discussed with nursing staff , per patients daughter patient has long hx of chronic back pain, scoliosis, compression fracture previously on 25mcg Fentanyl. Physical Exam Vital signs: Vital Signs 03/08/18 17:33 03/09/18 02:18 Temperature 98.2 F 97.6 F Pulse Rate 63 124 H Respiratory Rate 16 20 Blood Pressure 121/58 L 166/74 H Pulse Oximetry 97 Intake & Output 03/08/18 03/09/18 03/09/18 18:59 06:59 18:59 Intake Total 240 / 240 Balance 240 / 240 Intake: Oral 240 / 240 Narrative: GENERAL: Elderly, thin, chronically ill-appearing elderly female, in no acute distress. Lethargic. SKIN: Warm and dry. + Large area of ecchymosis left side of face and smaller area of ecchymosis on right side of face. HEAD: Normocephalic. + Laceration the right side of head, healing well. EYES: Pupils equal and round. No scleral icterus. No injection or drainage. ENT: No nasal bleeding or discharge. Mucous membranes pink and moist. NECK: Trachea midline. CARDIOVASCULAR: Irregular. RESPIRATORY: No accessory muscle use. CTA bilaterally. GASTROINTESTINAL: Abdomen soft, non-tender, nondistended. +BS. MUSCULOSKELETAL: Extremities without clubbing, cyanosis, or edema. No obvious deformities. NEUROLOGICAL: Lethargic Oriented to self only. No obvious cranial nerve deficits. Unable to assess motor function. Able to move all extremities spontaneously. Normal speech. PSYCHIATRIC: Irritable; insight and judgment poor. Results - Labs CBC & Chem 7: 03/09/18 07:30 Laboratory Results - last 24 hr 03/08/18 03/09/18 03/09/18 21:15 07:30 11:15 Sodium 132 L Potassium 4.2 D Chloride 97 L Carbon Dioxide 27.2 Anion Gap 8 BUN 15 Creatinine 0.58 Estimated GFR Greater than 89 POC Glucose 178 H Random Glucose 87 Calcium 8.1 L Troponin I 0.02 TSH 1.730 Assessment and Plan - Plan 87-year-old female with end-stage dementia status post recurrent falls most recent of which resulted a laceration the right side of the head admitted to inpatient psychiatric unit. Hospitalist services consulted to assist with ongoing medical management. End-stage dementia with behavioral disturbances -Management per psychiatric team Recurrent falls Laceration Orthostatic BP measurements neg -Laceration right side of head has been repaired, appears to be healing well -PT recommending rehab -fall precautions Severe back pain Hx of T12 compression fracture Vit D level 43.4 07/21/17 Patient is complaining of back pain extending from her neck all the way down her buttocks -patient unable to tolerate imaging studies. Per daughter, no further intervention wanted. Her mother is DNR. Patient with long history of back pain , on 25mcg Fentanyl patch at home, daughter requesting we restart. -Will resume Fentanyl patch 25mcg daily [employer] Prescription Drug Monitoring Database has been queried and verified prior to prescribing the controlled substance. Acute pain exception. This patient has normal, predicted, physiological, and time limited response to an adverse mechanical stimulus associated with surgery, trauma, or acute illness as described in my notes. There is a lack of alternative treatment options other than to include the prescribed narcotic treatment for this condition. HTN, now hypotensive CAD Atrial fibrillation, rate controlled 03/09 BP 98/50, p 60 at 715am, at 1015am BP 112/55, p 60 -change to metoprolol 12.5mg with hold parameters. May need to discontinue if BP does not tolerate. -patient not a candidate for anticoagulation Dysphagia of solid foods -puree diet -Speech therapy consult for swallow evaluation - refused by daughter Elevated potassium -K high normal at 5.0 -Hold oral potassium for now Hyponatremia, mild -Fluid restriction -Monitor sodium level Hypoglycemia BS 65 -Accu-Cheks -Hypoglycemic protocol -Consult dietitian, appreciate recommendations -continue Ensure supplements 3 times daily with meals Hypothyroidism TSH WNL -Continue levothyroxine COPD, not in acute exacerbation -monitor respiratory status -Duonebs as needed DVT prophylaxis -patient is ambulatory Code Status: FULL Discussed Condition With: patient, nursing staff, Dr. Tanner
--- NOTE | 2018-03-09 18:58 | XR ---
EXAM DATE: 03/09/2018 6:42 PM EDT AGE/SEX: 87 years / Female INDICATIONS: Short of breath CLINICAL DATA: This is the patient's subsequent encounter. Patient reports that signs and symptoms h ave been present for 1 week and indicates a pain score of 0/10. MEDICAL/SURGICAL HISTORY: Non-responsive. Non-responsive. COMPARISON: [facility] [place], CHEST 1V SINGLE AP, 02/22/2018. . FINDINGS: The lungs are clear without infiltrate, nodule, or mass. There is no appreciable pleural effusion for technique. Heart and mediastinum are unremarkable. Left subclavian transvenous pacer w hari has not changed. CONCLUSION: No acute cardiopulmonary disease. Electronically signed by: Wang Salter MD 03/09/2018 6:56 PM EDT
[2018-03-09] MEDS: Divalproex 125 MG Sprinkles Capsule PO SCH (20:47)
[2018-03-09] MEDS: Metoprolol Tartrate 25 MG Tablet PO SCH (20:49)
[2018-03-10] MEDS: Levothyroxine 50 MCG Tablet PO SCH (05:45)
[2018-03-10] MEDS: OLANZapine 2.5 MG Tablet PO SCH ×2 (09:09→20:42)
[2018-03-10] MEDS: Ferrous Sulfate 325 MG Tablet PO SCH (09:09)
[2018-03-10] MEDS: Senna/Docusate Sodium 8.6/50 MG Tablet PO SCH ×2 (09:09→20:42)
[2018-03-10] MEDS: Divalproex 125 MG Sprinkles Capsule PO SCH ×2 (09:10→20:42)
[2018-03-10] MEDS: Metoprolol Tartrate 25 MG Tablet PO SCH ×2 (09:11→20:42)
--- NOTE | 2018-03-10 09:33 | P.PN ---
Subjective Interval history: Follow up on patient with end stage dementia, back pain, CAD. Patient seen and examined. Contacted by nursing staff late yesterday stating that O2 sats only 81%. No recorded hypoxia in EMR. Per Eun GUTIÉRREZ, patient's fingers and toes are ice cold. Patient's daughter refusing any blood draws and any further testing. Patient not in any respiratory distress per nursing staff. Patient encountered in her room lying flat in her bed eating eggs with breakfast tray on her lap. Discussed with psychiatric team immediately, patient sat up and assisted with meal. Discussed aspiration precautions per patient denies any acute medical complaints. She appears comfortable. Patient not witnessed to have any coughing or choking episode with eating breakfast. Physical Exam Vital signs: Vital Signs 03/09/18 17:26 03/10/18 06:00 Temperature 98.0 F 97.4 F L Pulse Rate 67 71 Respiratory Rate 18 18 Blood Pressure 150/63 H 124/58 L Pulse Oximetry 97 Intake & Output 03/09/18 03/10/18 03/10/18 18:59 06:59 18:59 Intake Total 840 / 840 Balance 840 / 840 Intake: Oral 840 / 840 Other: # Voids 2 3 Narrative: GENERAL: Elderly, thin, chronically ill-appearing elderly female, in no acute distress. Awake and alert. Confused. Appears comfortable. Not in any respiratory distress. SKIN: Warm and dry. + Large area of ecchymosis left side of face and smaller area of ecchymosis on right side of face. HEAD: Normocephalic. + Laceration the right side of head, healing well. EYES: Pupils equal and round. No scleral icterus. No injection or drainage. ENT: No nasal bleeding or discharge. Mucous membranes pink and moist. NECK: Trachea midline. CARDIOVASCULAR: Irregular. RESPIRATORY: No accessory muscle use. CTA bilaterally. GASTROINTESTINAL: Abdomen soft, non-tender, nondistended. +BS. MUSCULOSKELETAL: Extremities without clubbing, cyanosis, or edema. No obvious deformities. NEUROLOGICAL: Awake and alert. Oriented to self only. No obvious cranial nerve deficits. Motor function grossly intact. Able to move all extremities spontaneously. Normal speech. PSYCHIATRIC: Severe dementia. Insight and judgment poor. Results - Labs CBC & Chem 7: 03/09/18 07:30 Laboratory Results - last 24 hr 03/09/18 11:15 Troponin I 0.02 - Imaging Impressions Chest X-Ray 03/09/18 00:00 CONCLUSION: No acute cardiopulmonary disease. Assessment and Plan - Plan 87-year-old female with end-stage dementia status post recurrent falls most recent of which resulted a laceration the right side of the head admitted to inpatient psychiatric unit. Hospitalist services consulted to assist with ongoing medical management. End-stage dementia with behavioral disturbances -Management per psychiatric team Recurrent falls Laceration Orthostatic BP measurements neg -Laceration right side of head has been repaired, appears to be healing well -PT recommending rehab -fall precautions Dysphagia of solid foods -puree diet -Speech therapy consult for swallow evaluation - refused by daughter -aspiration precautions -patient is listed as full code, per discussion with nursing staff, daughter states mother is DNR and daughter is refusing any additional testing or lab draws. Will consult palliative care to assist with goals of care, appreciate their insight. Severe back pain Hx of T12 compression fracture Vit D level 43.4 07/21/17 Patient is complaining of back pain extending from her neck all the way down her buttocks -patient unable to tolerate imaging studies. Per daughter, no further intervention wanted. Her mother is DNR. Patient with long history of back pain , on 25mcg Fentanyl patch at home, daughter requesting we restart. -Will resume Fentanyl patch 25mcg daily [facility] Prescription Drug Monitoring Database has been queried and verified prior to prescribing the controlled substance. Acute pain exception. This patient has normal, predicted, physiological, and time limited response to an adverse mechanical stimulus associated with surgery, trauma, or acute illness as described in my notes. There is a lack of alternative treatment options other than to include the prescribed narcotic treatment for this condition. HTN Episodes of hypotension, improved CAD Atrial fibrillation, rate controlled 03/09 BP 98/50, p 60 at 715am, at 1015am BP 112/55, p 60 -Continue on Metoprolol 12.5mg with hold parameters. May need to discontinue if BP does not tolerate. -patient not a candidate for anticoagulation Elevated potassium -K high normal at 5.0 -Hold oral potassium for now Hyponatremia, mild -Fluid restriction -Monitor sodium level -patient's daughter refusing blood draws Hypoglycemia BS 65 -Accu-Cheks -discontinue at daughter's request -Hypoglycemic protocol -Consult dietitian, appreciate recommendations -continue Ensure supplements 3 times daily with meals Hypothyroidism TSH WNL -Continue levothyroxine COPD, not in acute exacerbation -monitor respiratory status -Duonebs as needed DVT prophylaxis -patient is ambulatory Code Status: FULL Discussed Condition With: patient, nursing staff, Dr. Tanner
--- NOTE | 2018-03-10 10:09 | P.CONPAL ---
Consult Service: Palliative Care Requesting Physician: Carolann Lorenzo Reason for Consult: a. To assist with evaluation and management of symptoms including:pain, agitation, dyspnea b. To assist medical decision maker(s) with: better understanding of current medical conditions; weighing benefits/burdens of medical treatment options; making medical treatment decisions. Primary Care Provider: UNKNOWN History of Present Illness History of Present Illness: 87-year-old with a past medical history significant for Alzheimer's dementia, hypertension, hypothyroidism, arrhythmia status post pacemaker, anxiety, chronic pain from T12 compression fracture. Patient has history of recent hospitalization for falls, which resulted in laceration of the right side of the head. Once patient was medically clear for discharge facility refused to take her back due to increased agitation and aggressiveness. Patient subsequently was seen by psychiatry and was admitted to inpatient psychiatric unit, [facility]. Hospitalist was consulted to follow for medical management on 03/08/2018. * Temperature 98.2, pulse is 63, respirations 16, blood pressure is 121/88, pulse ox is 97% * Sodium is 133, potassium is 5.0, chloride is 97, bicarb is 24.8, BUNs 13, creatinine 0.6 * 03/09/2018. Patient has hx of some dysphagia with solid food and was placed on puree diet. Speech was ordered, but pt's daughter did not want patient to undergo swallow evaluation. Psych continue to follow, and continue petition. Patient was asked to continue zyprexa and hold if bp is low. Chest x-ray shows no acute cardiopulmonary disease. 03/10/2018- Pt had some episode of sats of 81%, but subsequently stableized. Pt' s daughter had been refusing any blood draws or further testing. Palliative care was consulted to review goals of care. Very confused unable to give history, endorse or relate t's symptom of pain, dyapne or agitation. On nasal canula, does not appear short of breath currently. No grimaicing, just sitting at bedside. Function/Cognitive Trajectory: Patient has dementia. Patient has had recent falls that require laceration. Review of Systems unobtainable due to mental condition PMFSH - History History Provided By: Family Member, Wooden Furniture Polisher / EMT - Medical History Medical History: Medical History (Last Reviewed 03/09/18 @ 09:11 by Naomie Maria Pig Machine Operator, .NET ARCHITECT) Pacemaker (Acute) Hypothyroidism Anxiety Dementia - Family History Family History: Family History (Last Updated 03/10/18 @ 12:14 by Tino Narvaez MD) Other Manic depression - Tobacco History Smoking Status: Smoker, status unknown Tobacco Type: Cigarettes Packs Per Day: 3 - Alcohol History How Often Do You Have a Drink Containing Alcohol: Unable to Obtain - Substance Use History Substance History: Unable to Obtain Medications and Allergies Active Medications: Active Medications Acetaminophen (Tylenol) 650 mg PO Q4H PRN PRN Reason: Pain 1-5 or Temp >101F Last Admin: 03/09/18 20:48 Dose: 650 mg Al Hydrox/Mg Hydrox/Simethicone (Mag-Al Plus Susp Liq) 30 ml PO Q6H PRN PRN Reason: DYSPEPSIA Al Hydroxide/Mg Hydroxide (Milk Of Magnesia Liq) 30 ml PO Q12H PRN PRN Reason: Mild Constipation Al Hydroxide/Mg Hydroxide (Milk Of Magnesia Liq) 30 ml PO Q12H PRN PRN Reason: Mild Constipation Bisacodyl (Dulcolax Supp) 10 mg RECTAL DAILY PRN PRN Reason: SEVERE CONSITIPATION Buspirone HCl (Buspar) 10 mg PO Q8HR [facility] Last Admin: 03/10/18 05:45 Dose: 10 mg Clopidogrel Bisulfate (Plavix) 75 mg PO DAILY [facility] Last Admin: 03/10/18 09:10 Dose: 75 mg Dextrose (D50w Vial) 50 ml IV.PUSH UNSCH PRN PRN Reason: PER HYPOGLYCEMIA PROTOCOL Diphenhydramine HCl (Benadryl) 50 mg PO HS PRN PRN Reason: INSOMNIA Last Admin: 03/09/18 20:49 Dose: 50 mg Divalproex Sodium (Depakote Sprinkles) 500 mg PO BID [facility] Last Admin: 03/10/18 09:10 Dose: 500 mg Fentanyl (Duragesic 25 Mcg Patch.72hr) 1 patch T-DERMAL Q3D [facility] Last Admin: 03/09/18 19:08 Dose: Not Given Ferrous Sulfate (Ferosul) 325 mg PO DAILY [facility] Last Admin: 03/10/18 09:09 Dose: 325 mg Furosemide (Lasix) 20 mg PO DAILY [facility] Last Admin: 03/08/18 10:13 Dose: 20 mg Glucagon (Glucagon Inj) 1 mg OTHER PRN PRN PRN Reason: for Hypoglycemia Protocol Hydroxyzine HCl (Atarax) 50 mg PO Q6H PRN PRN Reason: ANXIETY Last Admin: 03/09/18 21:57 Dose: 50 mg Lactulose (Lactulose Liq) 30 ml PO DAILY PRN PRN Reason: SEVERE CONSITIPATION Levothyroxine Sodium (Synthroid) 50 mcg PO DAILY@0600 [facility] Last Admin: 03/10/18 05:45 Dose: 50 mcg Lorazepam (Ativan Inj) 1 mg IM UNSCH X1 PRN PRN Reason: IF PATIENT REFUSES PO ATIVAN Metoprolol Tartrate (Lopressor) 12.5 mg PO BID [facility] Last Admin: 03/10/18 09:11 Dose: 12.5 mg Miscellaneous (Pill Splitter) 1 each OTHER UNSCH PRN PRN Reason: PILL SPLITTING Olanzapine (Zyprexa) 2.5 mg PO BID [facility] Last Admin: 03/10/18 09:09 Dose: 2.5 mg Patch Removal (Remove Old Patch) 1 each T-DERMAL Q3D [facility] Potassium Chloride (Kcl) 20 meq PO DAILY [facility] Senna/Docusate Sodium (Michelle-Colace) 1 tab PO BID [facility] Last Admin: 03/10/18 09:09 Dose: 1 tab Sennosides (Senokot) 17.2 mg PO Q12H PRN PRN Reason: Moderate Constipation Allergies Allergy/AdvReac Type Severity Reaction Status Date / Time quetiapine Allergy Intermediate Anxiety Verified 02/22/18 13:34 baclofen Allergy Unknown Lethargy Verified 02/22/18 13:34 Penicillins Allergy Unknown Rash Verified 02/22/18 13:34 Home Medications Medication Instructions Recorded Confirmed Type Robafen 100 mg PO Q6HR 02/22/18 02/22/18 History clopidogrel 75 mg PO DAILY 02/22/18 02/22/18 History ferrous sulfate 325 mg PO DAILY 02/22/18 02/22/18 History furosemide 20 mg PO DAILY 02/22/18 02/22/18 History hydrocodone-acetaminophen 1 tab PO Q4-6H PRN 02/22/18 02/22/18 History levothyroxine 50 mcg PO DAILY 02/22/18 02/22/18 History magnesium hydroxide [Milk of 5 ml PO DAILY PRN 02/22/18 02/22/18 History Magnesia] metoprolol succinate 12.5 mg PO DAILY 02/22/18 02/22/18 History potassium chloride 20 meq PO DAILY 02/22/18 02/22/18 History buspirone 10 mg PO Q8HR 02/24/18 02/24/18 History temazepam 15 mg PO HS 02/24/18 02/24/18 History trazodone 100 mg PO HS 02/24/18 02/24/18 History Advance Directives Healthcare Surrogate: Yes (daughter will bring in.) Power of Receptionist Clerk Relationship to Patient: Children Physical Exam Vital Signs: Vital Signs - 24 hr 03/09/18 17:26 03/10/18 06:00 Temperature 98.0 F 97.4 F L Pulse Rate 67 71 Respiratory Rate 18 18 Blood Pressure 150/63 H 124/58 L Pulse Oximetry 97 I&O: Intake & Output 03/08/18 03/09/18 03/10/18 03/11/18 06:59 06:59 06:59 06:59 Intake Total 840 / 840 Balance 840 / 840 Weight 54.998 kg Physical Exam: CONSTITUTIONAL/GENERAL: This is an elderly 87 year old at bedside. confused, agitated at times SKIN: No jaundice, rashes, or lesions. Ecchymoses on upper extremities. HEAD: Atraumatic. Normocephalic. EYES: Pupils equal and round and reactive. Fundi not examined. ENT: Hearing grossly normal. Nose without bleeding or purulent drainage. Throat without visible erythema, exudates, masses, or lesions. NECK: Trachea midline. Supple, nontender. No palpable thyroid enlargement or nodularity. CARDIOVASCULAR: Regular rate and rhythm without murmurs, gallops, or rubs. RESPIRATORY/CHEST: Symmetric, unlabored respirations. Clear to auscultation. GASTROINTESTINAL: Abdomen soft, non-tender, nondistended. No hepato-splenomegaly , or palpable masses. No guarding. Bowel sounds present. GENITOURINARY: Without palpable bladder distension. [place] catheter in place. MUSCULOSKELETAL: Extremities without clubbing, cyanosis, or edema. LYMPHATICS: No palpable cervical or supraclavicular adenopathy. NEUROLOGICAL: Awake and alert. Motor and sensory grossly within normal limits. confused agitated. Moves all extremities. PSYCHIATRIC: no apparent hallucinations but confused Diagnostic Tests Laboratory: Laboratory Results - last 72 hr 09/01/18 09/01/18 09/01/18 09:30 09:30 21:15 Sodium 133 L Potassium 5.0 Chloride 97 L Carbon Dioxide 24.8 Anion Gap 11 BUN 13 Creatinine 0.66 Estimated GFR 85 L POC Glucose 178 H Random Glucose 65 L Hemoglobin A1c 4.9 Calcium 8.2 L Troponin I Triglycerides 71 Cholesterol 152 LDL Cholesterol, Calc 77 HDL Cholesterol 61.0 H Cholesterol/HDL Ratio 2.49 TSH 03/09/18 03/09/18 07:30 11:15 Sodium 132 L Potassium 4.2 D Chloride 97 L Carbon Dioxide 27.2 Anion Gap 8 BUN 15 Creatinine 0.58 Estimated GFR Greater than 89 POC Glucose Random Glucose 87 Hemoglobin A1c Calcium 8.1 L Troponin I 0.02 Triglycerides Cholesterol LDL Cholesterol, Calc HDL Cholesterol Cholesterol/HDL Ratio TSH 1.730 Result Diagrams: 03/09/18 07:30 Imaging: Chest X-Ray 03/09/18 00:00 CONCLUSION: No acute cardiopulmonary disease. Patient/Family Conference Present at Family Conference: Pt 's daughter Maryam Andrews Family Conference Location: Telephone Issues Discussed: * Palliative care role, purpose, approach * Additional medical, psychosocial, and spiritual history * Patients general health, functional status, and cognitive changes in the months leading up to the current hospitalization * Patient/family understanding of the current medical problems * Patient/family understanding of prognosis * Patients goals of care as best understood from advance directives and/or conversations and/or values * Current medical treatment options and benefits/burdens of those options * Likely scenarios comparing ongoing aggressive care with a transition to comfort measures only * Questions answered to the best of my ability * Palliative care contact information provided Assessment and Plan - Disease Oriented Problem List (1) Major neurocognitive disorder due to Alzheimer's disease, probable, with behavioral disturbance (2) CAD (coronary artery disease) (3) COPD (chronic obstructive pulmonary disease) (4) Head injury (5) Dementia (6) History of pacemaker - Symptom Scale (1) Pain 0-10 Scale: Unable to quantify (2) Dyspnea 0-10 Scale: Unable to quantify (3) Agitation 0-10 Scale: Unable to quantify Pertinent Non-Medical Issues: Psychosocial: Spiritual: Legal: Ethical issues impacting care: Important Contacts: Maryam Andrews [phone] Prognosis: 87 year old with hx of cad, copd, alzheimer's demenita, wt loss, falls. Pt is appropriate for hospice services. Code Status: No Code DNR Plan: ==code: DNR. Has been recorded as an DNR Jul. Spoke with daughter and pt will be a DNR. no intubation or resuscitation. ==capacity- no capacity to make medical condition and will not regain capacity given level of dementia. == health care decison maker: Daughter Maryam Andrews will bring in health care surrogate paperwork. Maryam andrews is the only family reachable. == Goals of care: - no tube feedings, cpr, blood draws/ blood gasses. - family just want psych expertise in symptom manangement. Zypresa started yesterday. - if there is no improvement later on this week or pt suddenly decline, they are amenable to hospice. Family wants to give time for zypresa to work, as it was just started. If by Saturday, pt agitation is worse or has not improved, daughter is amenable to hospice care center for managment of symptoms. She understand if pt goes back to hospice, pt likely will have more of the sedative effect from medication. - Overall pt's family want pt to go back to hospice, but want to give more time for psych to manage symptoms. - pt has had recent fall, discuss risk of hemorrhage, from head trauma, and blood thinners. Daughter ask/ amenable to place pt on aspirin and stop plavix. == assessment/plan dyspnea- hx of copd. continue O2. Pt is also an aspiration risk. Pain- hx of compression fracture. on fentanyl patch. Hopefully can restart later on once vitals a bit more stable. agitation- Dementia- progressively worsening for about one year- family want at least continue psych expertise in managment with zypresa, depakote etc. Family wants to give time fo zypresa to work, as it was just started. If by Saturday, pt agitation is worse or has not improved, daughter is amenable to hospice care center for managment of symptoms. She understand if pt goes back to hospice, pt likely will have more of the sedative effect from medication. Family is amenable to that plan for treatment. Appreciation Thank you for the opportunity to participate in the care of [place] Mina. Attestation Attestation: To help prompt me to consider important information that might be impacting today's encounter and assessment, information from prior notes written by myself or my colleagues may have been "brought forward" into today's note. My signature on this note, however, is an attestation that I personally performed the exam, history, and/or decision-making noted today, and, unless otherwise indicated, the interactions with patient, family, and staff as well as the review of records all occurred today. I also attest that the listed assessment and stated plan reflect my best clinical judgment today based on the combination of historical information, prior notes, and today's exam/ interactions. When time spent is documented, it refers only to time spent today by the signer, or if indicated, combined time spent today by collaborating physician/nurse practitioner.
--- NOTE | 2018-03-10 13:25 | P.PNPSY ---
Subjective Remarks: Patient was seen today for psychiatric reevaluation. Weekend documentation reviewed. The case was discussed with nursing charge. The patient having mild to moderate respiratory difficulty. She reports feeling okay, completely disoriented, disorganized, not able to answer any of my questions. At times becomes verbally hostile, which is no agitated or aggressive. Mental Status Examination Appearance: Appropriate, Disheveled (Mildly) Consciousness: Alert Orientation: Person Motor Activity: Other (The) Speech: Hesitant, Slow Language: Other Fund of Knowledge: Poor Attention and Concentration: Easily distracted Memory: Impaired Mood: Irritable Affect: Other (Slight increased range and intensity) Thought Process & Associations: Disorganized Thought Content: Other (Disorganized) Hallucination Type: None Delusion Type: None Suicidal Ideation: No Suicidal Plan: No Suicidal Intention: No Homicidal Ideation: No Homicidal Plan: No Homicidal Intention: No Insight: Poor Judgment: Poor Assessment and Plan - Assessment (1) Alzheimer's disease with late onset Code(s): G30.1 - Alzheimer's disease with late onset; F02.80 - Dementia in other diseases classified elsewhere without behavioral disturbance Status: Acute (2) Dementia in other diseases classified elsewhere with behavioral disturbance Code(s): F02.81 - Dementia in other diseases classified elsewhere with behavioral disturbance Status: Acute - Plan Plan: Continue current psychotropic regimen. Justification for Continued Inpatient Stay: Elevated risk to decompensate at a lower level of care. Request Healthcare Surrogate/Guardian Advocate?: Yes
[2018-03-11] MEDS: Levothyroxine 50 MCG Tablet PO SCH (05:34)
--- NOTE | 2018-03-11 08:38 | P.PN ---
Subjective Interval history: Follow up on patient with end stage dementia, back pain, CAD. Patient seen and examined. Patient encountered resting in her bed. She appears internally preoccupied fidgeting with the blankets on her bed. She does not answer any of my questions appropriately. Discussed with nursing staff, no acute events overnight. Physical Exam Vital signs: Vital Signs 03/10/18 17:58 03/11/18 06:00 Temperature 97.4 F L 98.3 F Pulse Rate 73 69 Respiratory Rate 16 20 Blood Pressure 155/61 H 122/91 H Pulse Oximetry 96 93 L Intake & Output 03/10/18 03/11/18 03/11/18 18:59 06:59 18:59 Intake Total 0 / 0 220 / 220 Balance 0 / 0 220 / 220 Intake: Oral 0 / 0 120 / 120 Oral Supplement 100 / 100 Other: # Voids 3 Narrative: GENERAL: Elderly, thin, chronically ill-appearing elderly female, in no acute distress. Awake. Confused. Not answering any questions appropriately. SKIN: Warm and dry. + Large area of ecchymosis left side of face and smaller area of ecchymosis on right side of face, resolving. HEENT: Normocephalic. + Laceration the right side of head, healing well. Pupils equal and round. No scleral icterus. No injection or drainage. No nasal bleeding or discharge. Mucous membranes pink and moist. NECK: Trachea midline. CARDIOVASCULAR: Irregular. RESPIRATORY: No accessory muscle use. CTA bilaterally. GASTROINTESTINAL: Abdomen soft, non-tender, nondistended. +BS. MUSCULOSKELETAL: Extremities without clubbing, cyanosis, or edema. No obvious deformities. NEUROLOGICAL: Awake and alert. Oriented to self only. No obvious cranial nerve deficits. Motor function grossly intact. Able to move all extremities spontaneously. Normal speech. PSYCHIATRIC: Severe dementia. Insight and judgment poor. Results - Labs CBC & Chem 7: 03/09/18 07:30 Assessment and Plan - Plan 87-year-old female with end-stage dementia status post recurrent falls most recent of which resulted a laceration the right side of the head admitted to inpatient psychiatric unit. Hospitalist services consulted to assist with ongoing medical management. End-stage dementia with behavioral disturbances -Management per psychiatric team -Palliative care is following, appreciate assistance. Patients daughter would like to wait until Saturday to see if Zyprexa improves behavior and if no improvement then is amenable to hospice. Recurrent falls Laceration Orthostatic BP measurements neg -Laceration right side of head has been repaired, appears to be healing well -PT recommending rehab -fall precautions Dysphagia of solid foods -puree diet -Speech therapy consult for swallow evaluation - refused by daughter -aspiration precautions -patient is listed as full code, per discussion with nursing staff, daughter states mother is DNR and daughter is refusing any additional testing or lab draws. Severe back pain Hx of T12 compression fracture Vit D level 43.4 07/21/17 Patient is complaining of back pain extending from her neck all the way down her buttocks -patient unable to tolerate imaging studies. Per daughter, no further intervention wanted. Her mother is DNR. Patient with long history of back pain , on 25mcg Fentanyl patch at home, daughter requesting we restart. -Will resume Fentanyl patch 25mcg daily [email or web address] Prescription Drug Monitoring Database has been queried and verified prior to prescribing the controlled substance. Acute pain exception. This patient has normal, predicted, physiological, and time limited response to an adverse mechanical stimulus associated with surgery, trauma, or acute illness as described in my notes. There is a lack of alternative treatment options other than to include the prescribed narcotic treatment for this condition. HTN Episodes of hypotension, improved CAD Atrial fibrillation, rate controlled / BP 98/50, p 60 at 715am, at 1015am BP 112/55, p 60 -BP improved. Continue on Metoprolol 12.5mg with hold parameters. -patient not a candidate for anticoagulation Elevated potassium -K high normal at 5.0 -Hold oral potassium for now Hyponatremia, mild -Fluid restriction -Monitor sodium level -patient's daughter refusing blood draws Hypoglycemia BS 65 -Accu-Cheks -discontinue at daughter's request -Hypoglycemic protocol -Consult dietitian, appreciate recommendations -continue Ensure supplements 3 times daily with meals Hypothyroidism TSH WNL -Continue levothyroxine COPD, not in acute exacerbation -monitor respiratory status -Duonebs as needed DVT prophylaxis -patient is ambulatory Patient appears stable from hospitalist standpoint. [facility] will sign off. Please reconsult if needed. Code Status: DNR Discussed Condition With: patient, nursing staff, Dr. Narvaez, Dr. Prado
--- NOTE | 2018-03-11 10:17 | P.TTN ---
- Patient Problems Problems: 1. Discharge planning 2. Medication compliance 3. Knowledge deficit 4. Lack of coping skills - Progress Toward Goals Provider Present: Dr. Merrill Hu Provider Input: Patient's medication and treatment is being adjusted, continues to require stablizing Nurse(s) Present: RN Nurse Input: Patient requires coaching with meals, medication and ADL's; she is anxious and easily agitated - Documentation Teaching Recipient: Patient
[2018-03-11] MEDS: Ferrous Sulfate 325 MG Tablet PO SCH ×2 (10:46→12:24)
[2018-03-11] MEDS: Divalproex 125 MG Sprinkles Capsule PO SCH ×3 (10:46→20:42)
[2018-03-11] MEDS: OLANZapine 2.5 MG Tablet PO SCH ×2 (10:46→12:24)
[2018-03-11] MEDS: Metoprolol Tartrate 25 MG Tablet PO SCH ×3 (10:46→20:48)
[2018-03-11] MEDS: Aspirin 325 MG Tablet PO SCH (10:46)
[2018-03-11] MEDS: Senna/Docusate Sodium 8.6/50 MG Tablet PO SCH ×3 (10:47→20:48)
--- NOTE | 2018-03-11 11:35 | P.PNPAL ---
Reason for Visit Reason for visit: a. To assist with evaluation and management of symptoms including:pain, agitation, dyspnea b. To assist medical decision maker(s) with: better understanding of current medical conditions; weighing benefits/burdens of medical treatment options; making medical treatment decisions. Subjective Subjective/Interval History: Patient on my visit was sleeping comfortably, but only stirs to exam. Overnight patient was agitated and required multiple doses of ativan, and haldol. Patient this morning also need atarax, benadryl and ativan. Family/Friend Interactions: Discussion with patient's daughter. Updated her on her clinical decision. She is amenable to hospice consultation, for information, and possible care center admission. Reviewed her fraility, her dementia, her aspiration risk, copd. Advance Directives Durable Power of Tire Assembler: Copy in medical record (not made available, need to find.) Objective Vital Signs: Vital Signs 03/10/18 17:58 03/11/18 06:00 Temperature 97.4 F L 98.3 F Pulse Rate 73 69 Respiratory Rate 16 20 Blood Pressure 155/61 H 122/91 H Pulse Oximetry 96 93 L Intake & Output 03/10/18 03/11/18 03/11/18 18:59 06:59 18:59 Intake Total 0 / 0 220 / 220 Balance 0 / 0 220 / 220 Intake: Oral 0 / 0 120 / 120 Oral Supplement 100 / 100 Other: # Voids 3 Physical Exam: CONSTITUTIONAL/GENERAL: This is an elderly 87 year old at bedside. sleeping currently SKIN: No jaundice, rashes, or lesions. Ecchymoses on upper extremities. HEAD: she does have some ecchymosis left facial area. Normocephalic. EYES: Pupils equal and round and reactive. Fundi not examined. ENT: Hearing grossly normal. Nose without bleeding or purulent drainage. Throat without visible erythema, exudates, masses, or lesions. NECK: Trachea midline. Supple, nontender. No palpable thyroid enlargement or nodularity. CARDIOVASCULAR: Regular rate and rhythm without murmurs, gallops, or rubs. RESPIRATORY/CHEST: Symmetric, unlabored respirations. Clear to auscultation. No wheezing. GASTROINTESTINAL: Abdomen soft, non-tender, nondistended.Bowel sounds present. GENITOURINARY: Without palpable bladder distension. [place] catheter in place. MUSCULOSKELETAL: Extremities without clubbing, cyanosis, or edema. LYMPHATICS: No palpable cervical or supraclavicular adenopathy. NEUROLOGICAL:sleeping. PSYCHIATRIC: could not examine today. Diagnostic Tests Laboratory: Laboratory Results - last 72 hr 03/08/18 03/08/18 03/09/18 09:30 21:15 07:30 Sodium 132 L Potassium 4.2 D Chloride 97 L Carbon Dioxide 27.2 Anion Gap 8 BUN 15 Creatinine 0.58 Estimated GFR Greater than 89 POC Glucose 178 H Random Glucose 87 Hemoglobin A1c 4.9 Calcium 8.1 L Troponin I TSH 1.730 03/09/18 11:15 Sodium Potassium Chloride Carbon Dioxide Anion Gap BUN Creatinine Estimated GFR POC Glucose Random Glucose Hemoglobin A1c Calcium Troponin I 0.02 TSH Result Diagrams: 03/09/18 07:30 Assessment and Plan - Disease Oriented Problem List (1) Major neurocognitive disorder due to Alzheimer's disease, probable, with behavioral disturbance (2) CAD (coronary artery disease) (3) COPD (chronic obstructive pulmonary disease) (4) Head injury (5) Dementia (6) History of pacemaker Pertinent Non-Medical Issues: Psychosocial:Originally from [place]. 3 children. One son past away. One son estranged. Daughter Spiritual: Mandaeism Legal:Daughter is health care. Community DNR had been completed Ethical issues impacting care: Important Contacts: Maryam Andrews [phone] No other contact info for pt's son. Prognosis: 87 year old with hx of cad, copd, alzheimer's demenita, wt loss, falls. Pt is appropriate for hospice services. Code Status: No Code DNR Plan: ==code: DNR. community DNR also had been completed prior to current hospitalization ==capacity- no capacity to make medical condition and will not regain capacity given level of dementia. == health care decison maker: Daughter Maryam Andrews will bring in health care surrogate paperwork. Maryam andrews is the only reasonably reachable family. == Goals of care: - Pt's daughter is considering hospice given her clinical situation. Will place hospice consultation. Daughter currently working, and may want tour the care center facilities. == assessment/plan dyspnea- hx of copd. continue O2. Pt is also an aspiration risk. Pain- hx of compression fracture. on fentanyl patch. Hopefully can restart later on once vitals a bit more stable. agitation- Dementia- progressively worsening for about one year- does want Zyprexa to continue for at least a few days, even with hospice. Daughter understands if prn haldol and ativan continue needs to be used, then she is open to stopping Zyprexa. Attestation Attestation: To help prompt me to consider important information that might be impacting today's encounter and assessment, information from prior notes written by myself or my colleagues may have been "brought forward" into today's note. My signature on this note, however, is an attestation that I personally performed the exam, history, and/or decision-making noted today, and, unless otherwise indicated, the interactions with patient, family, and staff as well as the review of records all occurred today. I also attest that the listed assessment and stated plan reflect my best clinical judgment today based on the combination of historical information, prior notes, and today's exam/ interactions. When time spent is documented, it refers only to time spent today by the signer, or if indicated, combined time spent today by collaborating physician/nurse practitioner.
--- NOTE | 2018-03-11 14:48 | P.PNPSY ---
Subjective Remarks: Patient seen patient sedated and drowsy. He has had various as needed's for agitated behavior. Staff states patient has been up all night screaming and yelling. There is been communication with patient's daughter hospice is now involved patient patient is a DNR. For now we will change the Zyprexa from 2.5 mg twice daily to 5 mg at at bedtime Review of Systems All other systems reviewed negative except as stated in HPI Mental Status Examination Appearance: Disheveled (Mildly) Consciousness: Lethargic Orientation: Person Motor Activity: Other (Patient in bed) Speech: Hesitant, Slow Language: Other (Markedly disorganized) Fund of Knowledge: Poor Attention and Concentration: Easily distracted Memory: Impaired Mood: Irritable Affect: Other (Markedly decreased range and intensity today) Thought Process & Associations: Disorganized Thought Content: Other (Disorganized) Hallucination Type: None Delusion Type: None Suicidal Ideation: No Suicidal Plan: No Suicidal Intention: No Homicidal Ideation: No Homicidal Plan: No Homicidal Intention: No Insight: Poor Judgment: Poor Assessment and Plan - Assessment (1) Alzheimer's disease with late onset Code(s): G30.1 - Alzheimer's disease with late onset; F02.80 - Dementia in other diseases classified elsewhere without behavioral disturbance Status: Acute (2) Dementia in other diseases classified elsewhere with behavioral disturbance Code(s): F02.81 - Dementia in other diseases classified elsewhere with behavioral disturbance Status: Acute - Plan Plan: Patient somewhat sedated at this time continues markedly demented with significant sundowning patient up all last night agitated and screaming C medication adjustment above. Justification for Continued Inpatient Stay: At this time patient would decompensate if not placed in an appropriate level of care. Though it appears hospice is being consulted with this patient Discharge Planning: To be determined Request Healthcare Surrogate/Guardian Advocate?: Yes
[2018-03-11 18:18] VITALS: RESP 16; TEMP 97.4
[2018-03-12] MEDS: Levothyroxine 50 MCG Tablet PO SCH (05:39)
[2018-03-12 06:19] VITALS: BP 146/69; PULSE 77
[2018-03-12] MEDS: Aspirin 325 MG Tablet PO SCH (09:15)
[2018-03-12] MEDS: Ferrous Sulfate 325 MG Tablet PO SCH (09:15)
[2018-03-12] MEDS: Senna/Docusate Sodium 8.6/50 MG Tablet PO SCH (09:15)
[2018-03-12] MEDS: Divalproex 125 MG Sprinkles Capsule PO SCH (09:15)
[2018-03-12] MEDS: Metoprolol Tartrate 25 MG Tablet PO SCH (09:15)
[2018-03-12 09:39] VITALS: O2SAT 98
--- NOTE | 2018-03-12 09:57 | P.DSPSY ---
Psychiatry Discharge Summary Inpatient Psychiatric care?: Yes Advance Directives: No Mental Health Advance Directive: Yes Health Care Proxy: Yes - Admission Admission Date: March 07, 2018 18:05 - Admission Diagnosis (1) Major neurocognitive disorder due to Alzheimer's disease, probable, with behavioral disturbance Code(s): G30.9 - Alzheimer's disease, unspecified; F02.81 - Dementia in other diseases classified elsewhere with behavioral disturbance (2) Dementia in other diseases classified elsewhere with behavioral disturbance Code(s): F02.81 - Dementia in other diseases classified elsewhere with behavioral disturbance Brief History: Patient is an 87-year-old white female was initially admitted to [facility] on about 02/22 with history of falls history of cardiac issues and thyroid issues. She is also caring a diagnosis of dementia with agitation has had difficulty with placements to the point where she has been refused to return to her prior placement patient has been on the clinical decision unit since that time has been seen by her nurse practitioner early in the state then also seen with a psychiatric consultation by Dr. Araya and 03/06 he recommended restarting her Depakote. The addition also of Zyprexa small dose to help with her behaviors he did discuss this with her daughter Katie at that time. Patient has been medically cleared. Has not been transferred to the 2500 units under [facility] act was initiated by Dr. Snowden on 03/07. Patient seen by me today with RN in the dayroom. She is slight somewhat disheveled elderly white female healing laceration noted over right lateral eyebrow multiple bruises noted over both upper arms. Diffusely confused somewhat irritable did not remember me from prior contacts or prior hospitalizations. No other significant information can be gathered from her. We did talk to patient's daughter whose name is Katie at [phone] verify patient severe chronic long-standing demented issues but also other issues related to her various medical conditions and inability to find appropriate medication management to give her a better chance at being successful and placement. She agrees to the admission to the psychiatric unit To be healthcare surrogate/guardian advocate will continue her on her Depakote at 500 mg twice daily we will add olanzapine 2.5 mg twice daily we will allow as needed Atarax and Benadryl at bedtime. Placement may become problematic though patient's daughter states she has been working diligently attempting to find an appropriate placement also Tobacco Use In Past 30 Days: No How Often Do You Have a Drink Containing Alcohol: Unable to Obtain Hospital Course: Patient's hospital course was essentially down hoop. Patient's behavior at times remained quite agitated primarily towards evening related to her significant dementia and sundowning. There is been communication with patient' s family. Hospice and palliative care who have been involved. Patient is now a DNR [facility] Patient to be discharged today to that facility with Rx times a month to follow-up services through that facility - Discharge Discharge Date: 03/12/18 - Discharge Diagnosis (1) Major neurocognitive disorder due to Alzheimer's disease, probable, with behavioral disturbance Diagnosis: Principal Code(s): G30.9 - Alzheimer's disease, unspecified; F02.81 - Dementia in other diseases classified elsewhere with behavioral disturbance Status: Acute (2) Alzheimer's disease with late onset Diagnosis: Principal Code(s): G30.1 - Alzheimer's disease with late onset; F02.80 - Dementia in other diseases classified elsewhere without behavioral disturbance Status: Acute (3) Dementia in other diseases classified elsewhere with behavioral disturbance Diagnosis: Principal Code(s): F02.81 - Dementia in other diseases classified elsewhere with behavioral disturbance Status: Acute Discharge Disposition: Hospice - Discharge Instructions Discharge Diet: Regular Diet (Diet as tolerated Per treatment team) Activities You Can Perform: Regular- No Restrictions (Activities Per treatment team) - Discharge Time > 30 minutes Mental Status Examination Appearance: Disheveled (Mildly) Consciousness: Lethargic Orientation: Person Motor Activity: Other (Patient in bed) Speech: Hesitant, Slow Language: Other (Markedly disorganized) Fund of Knowledge: Poor Attention and Concentration: Easily distracted Memory: Impaired Mood: Irritable Affect: Other (Markedly decreased range and intensity today) Thought Process & Associations: Disorganized Thought Content: Other (Disorganized) Hallucination Type: None Delusion Type: None Suicidal Ideation: No Suicidal Plan: No Suicidal Intention: No Homicidal Ideation: No Homicidal Plan: No Homicidal Intention: No Insight: Poor Judgment: Poor Discharge/Advance Care Plan - Results Vital Signs: Last Vital Signs Temp 97.4 F L 03/12/18 06:00 Pulse 77 03/12/18 06:00 Resp 16 03/12/18 06:00 BP 146/69 H 03/12/18 06:00 Pulse Ox 98 03/12/18 09:38 Lab Results: Laboratory Results Hemoglobin A1c 4.9 % (4.3-6.0) 03/08/18 09:30 Triglycerides 71 mg/dL (42-150) 03/08/18 09:30 Cholesterol 152 mg/dL (120-200) 03/08/18 09:30 LDL Cholesterol, Calc 77 mg/dL (0-99) 03/08/18 09:30 HDL Cholesterol 61.0 mg/dL (40.0-60.0) H 03/08/18 09:30 TSH 1.730 uIU/mL (0.358-3.740) 03/09/18 07:30 Summary of Procedures: None done Imaging: ITS Impressions Chest X-Ray 03/09/18 00:00 CONCLUSION: No acute cardiopulmonary disease. Pending Results: None - Medications Number of antipsychotic medications at discharge: 1 - Discharge Care Plan Goals to Promote Your Health: * To prevent worsening of your condition and complications * To maintain your health at the optimal level Directions to Meet Your Goals: Take your medications as prescribed Follow your dietary instruction Follow activity as directed Keep your appointments as scheduled Take your immunizations and boosters as scheduled If your symptoms worsen call your PCP, if no PCP go to Urgent Care Center or Emergency Room For 28/01 questions related to your inpatient stay or results of tests pending at discharge, please contact Dr. Carlos Hu MD at Smoking is Dangerous to Your Health. Avoid second hand smoking
== END 2018-03-12 15:23 | disposition hospice, inpatient (51) ==
LOC: H250 18:10 → H4EA 03-09 19:37
PROVIDERS: ADMIT Psychiatry & Neurology Psychiatry; ATTEND Psychiatry & Neurology Psychiatry